=== PATIENT | male | born 1970 | race African-American/Black ===

== ENCOUNTER 2022-12-25 04:35 | Inpatient (IN) | payer OTHER ==
[2022-12-25] MEDS ORDERED: MAGNESIUM SULFATE-D5W PMX 1 GM in DEXTROSE/WATER 1 100ML.BAG IVPB STA (04:48)
[2022-12-25] MEDS ORDERED: SODIUM CHLORIDE 0.9% 1,000 ML IV STA ×3 (04:48→06:56)
[2022-12-25] MEDS ORDERED: methylPREDNISolone SOD SUCCI 125 MG/2 ML VIAL IV STA (04:48)
[2022-12-25] MEDS ORDERED: LORazepam 2 MG/ML INJ IV STA ×2 (04:48→05:28)
[2022-12-25 05:13] LABS: Basophils # (A) 0.1 k/uL (0-0.2); Basophils % (A) 0 %; Eosinophils # (A) 0.3 k/uL (0-0.7); Eosinophils % (A) 2 %; HCT 44.2 % (39.0-53.0); HGB 14.4 gm/dL (13.0-17.5); Lymphocytes # (A) 1.9 k/uL (1.0-4.8); Lymphocytes % (A) 12 %; MCH 33.7 pg (25.0-35.0); MCHC 32.4 g/dL (31.0-37.0); MCV 103.8 fL (80.0-100.0); Macrocytosis Slight; Mean Platelet Volume 7.7; Monocytes # (A) 0.7 k/uL (0-1.0); Monocytes % (A) 4 %; Neutrophils # (A) 12.9 k/uL (1.3-7.7); Neutrophils % (A) 80 %; Platelet Count 800 k/uL (150-450); RBC 4.26 m/uL (4.30-5.90); RDW 12.7 % (11.5-15.5); WBC 16.1 k/uL (3.8-10.6)
[2022-12-25 06:09] LABS: INR 0.9 (<1.2); Partial Thromboplastin Time 23.4 sec (22.0-30.0); Prothrombin Time 9.5 sec (9.0-12.0)
[2022-12-25 06:23] LABS: ALT 24 U/L (4-49); AST 24 U/L (17-59); African American GFR (CKD) >90 (>60 ml/min/1.73 sqM); Albumin 3.6 g/dL (3.5-5.0); Alkaline Phosphatase 75 U/L (38-126); Anion Gap 10 mmol/L; Blood Urea Nitrogen 7 mg/dL (9-20); Calcium 9.3 mg/dL (8.4-10.2); Carbon Dioxide 25 mmol/L (22-30); Chloride 101 mmol/L (98-107); Glucose 116 mg/dL (74-99); Magnesium 1.5 mg/dL (1.6-2.3); Non-African American GFR(CKD) >90 (>60 ml/min/1.73 sqM); Potassium 4.6 mmol/L (3.5-5.1); Sodium 136 mmol/L (137-145); Total Bilirubin 0.2 mg/dL (0.2-1.3); Total Protein 6.6 g/dL (6.3-8.2)
[2022-12-25 06:30] LABS: NT-Pro-B-Type Natriuretic Pept 327 pg/mL
[2022-12-25 07:10] LABS: VBG PH 7.45 (7.31-7.41)
--- NOTE | 2022-12-25 07:15 | XR ---
EXAMINATION TYPE: XR chest 1V portable DATE OF EXAM: 12/25/2022 Comparison: None Clinical History: 52-year-old male cough Findings: Heart normal size. Increased interstitial densities throughout the right lung. There is focal opacity along the right heart margin. No pleural effusion. Impression: Patchy opacity along the right middle lobe region. Correlate for pneumonia.
[2022-12-25] MEDS ORDERED: AZITHROMYCIN 500 MG in SODIUM CHLORIDE 0.9% 250 ML IVPB STA (07:35)
[2022-12-25] MEDS ORDERED: PIPERACILLIN-TAZOBACTAM 3.375 GM in SODIUM CHLORIDE 0.9% 100 ML IVPB STA (07:35)
[2022-12-25] MEDS ORDERED: PNEUMONIA PROTOCOL UTILIZED 1 EACH MISC PO PRN ×2 (07:35→08:57)
--- NOTE | 2022-12-25 07:46 | ED ---
General Adult HPI - General Source: patient Mode of arrival: EMS Limitations: no limitations <Moose Enrique - Last Filed: 12/25/22 07:36> <Wenceslao Viveros - Last Filed: 12/25/22 09:02> - General Chief complaint: Shortness of Breath Stated complaint: SOB Time Seen by Provider: 12/25/22 04:37 - History of Present Illness Initial comments: Patient is a 52-year-old male presents emergency Department complaining of dyspnea. He has a history of COPD. Recently was admitted for pneumonia per patient. Has a history of COPD and not usually nasal cannula. Has a history of alcohol abuse presenting from [place]. Last alcoholic beverage was 1 month ago. Presents for further evaluation at this time. He is anxious, dyspneic, with productive cough of yellow mucus. Denies any other symptoms. ( Moose Enrique) - Related Data Home Medications Medication Instructions Recorded Confirmed Acetaminophen Tab [Tylenol] 650 mg PO QID 12/25/22 12/25/22 Albuterol Nebulized [Ventolin 2.5 mg INHALATION RT-Q4H 12/25/22 12/25/22 Nebulized] Albuterol Sulfate [Ventolin HFA] 1 puff INHALATION RT-DAILY@0600 12/25/22 12/25/22 Azithromycin [Zithromax Z Pack] 1 tab PO DIRECTED 12/25/22 12/25/22 Chlorpheniramine Maleate 4 mg PO Q4H PRN 12/25/22 12/25/22 [Chlor-Trimeton] Escitalopram [Lexapro] 10 mg PO DAILY@0600 12/25/22 12/25/22 Fluticasone/Umeclidin/Vilanter 1 puff INHALATION RT-DAILY@0600 12/25/22 12/25/22 [Trelegy Ellipta 100-62.5-25] Ibuprofen [Motrin] 600 mg PO TID@0600,1130,2100 12/25/22 12/25/22 Multivitamins, Thera [Multivitamin 1 tab PO DAILY@0600 12/25/22 12/25/22 (formulary)] Nicotine 21Mg/24Hr Patch [Habitrol] 1 patch TRANSDERM DAILY@0600 12/25/22 12/25/22 Thera M Iron 9 mg PO DAILY@0600 12/25/22 12/25/22 busPIRone HCl [Buspar] 10 mg PO TID 12/25/22 12/25/22 guaiFENesin [guaiFENesin Oral 200 mg PO Q4H PRN 12/25/22 12/25/22 Solution] levETIRAcetam [Keppra] 1,000 mg PO BID@0600,1600 12/25/22 12/25/22 traZODone HCL [Desyrel] 100 mg PO HS@2000 12/25/22 12/25/22 Allergies Allergy/AdvReac Type Severity Reaction Status Date / Time No Known Allergies Allergy Verified 12/25/22 08:48 Review of Systems ROS Other: All systems not noted in ROS Statement are negative. <Moose Enrique - Last Filed: 12/25/22 07:36> ROS Other: All systems not noted in ROS Statement are negative. <Wenceslao Viveros - Last Filed: 12/25/22 09:02> ROS Statement: Those systems with pertinent positive or pertinent negative responses have been documented in the HPI. Review of Systems: CONST: Denies fever EYES: Denies blurry vision ENT: Denies nasal congestion C/V: Denies Chest pain RESP: Endorses dyspnea GI: Denies abdominal pain : Denies dysuria SKIN: Denies rash. MSK: Denies joint pain. NEURO: Denies headache (Moose Enrique) Past Medical History Past Medical History: COPD Past Surgical History: Unable to Obtain Smoking Status: Current every day smoker Past Alcohol Use History: Occasional Past Drug Use History: None Reported <Moose Enrique - Last Filed: 12/25/22 07:36> General Exam Limitations: no limitations <Moose Enrique - Last Filed: 12/25/22 07:36> - General Exam Comments Initial Comments: General: Patient in apparent respiratory distress. Appears anxious. HEAD: Normal with no signs of head trauma. EYES: PERRLA, EOMI, conjunctiva normal, no discharge. ENT: Hearing grossly intact, normal oropharynx. RESPIRATORY: Bilateral end expiratory wheezing. Hypoxia on room air in the 80%'s. Significant increased work of breathing. C/V: Sinus tachycardia. S1 and S2 auscultated, no edema, peripheral pulses 2+ and intact throughout ABD: Abd is soft, nontender, nondistended EXT: Normal range of motion, no obvious deformity SKIN: No rashes or lesions observed on exposed skin. NEURO: Alert and oriented x 4. (Moose Enrique) Course Vital Signs 12/25/22 12/25/22 12/25/22 04:39 05:29 05:30 Temperature 98 F Pulse Rate 130 H 123 H Respiratory 26 H 25 H Rate Blood Pressure 137/117 156/120 O2 Sat by Pulse 97 99 Oximetry Fraction of 50 Inspired Oxygen (FIO2) 12/25/22 12/25/22 12/25/22 05:47 06:00 06:40 Temperature Pulse Rate 132 H 137 H 124 H Respiratory 24 24 26 H Rate Blood Pressure 158/107 142/88 O2 Sat by Pulse 99 99 97 Oximetry Fraction of Inspired Oxygen (FIO2) 12/25/22 12/25/22 06:54 07:46 Temperature Pulse Rate 115 H 87 Respiratory 22 18 Rate Blood Pressure O2 Sat by Pulse 99 95 Oximetry Fraction of Inspired Oxygen (FIO2) Medical Decision Making - Lab Data Result diagrams: 12/25/22 04:59 12/25/22 05:40 - EKG Data -: EKG Interpreted by Me <Moose Enrique - Last Filed: 12/25/22 07:36> - Lab Data Result diagrams: 12/25/22 04:59 12/25/22 05:40 <Wenceslao Viveros - Last Filed: 12/25/22 09:02> - Medical Decision Making Was pt. sent in by a medical professional or institution (, [facility], [facility], urgent care, hospital, or shelter...) When possible be specific @ -No Did you speak to anyone other than the patient for history (EMS, parent, family, police, friend...)? What history was obtained from this source @ -No Did you review nursing and triage notes (agree or disagree)? Why? @ -I reviewed and agree with nursing and triage notes Were old charts reviewed (outside hosp., previous admission, EMS record, old EKG , old radiological studies, urgent care reports/EKG's, shelter records)? Report findings @ -Old charts reviewed. Differential Diagnosis (chest pain, altered mental status, abdominal pain women, abdominal pain men, vaginal bleeding, weakness, fever, dyspnea, syncope, headache, dizziness, GI bleed, back pain, seizure, CVA, palpatations, mental health, musculoskeletal)? @ -Differential Dyspnea: Coronary syndrome, arrhythmia, tamponade, asthma, COPD, pulmonary embolism, pneumonia, pneumothorax, pulmonary effusion, anaphylaxis, diabetic ketoacidosis, flailed chest, pulmonary contusion, diaphragmatic rupture, anemia, neuromuscular, this is not meant to be an all-inclusive list. EKG interpreted by me (3pts min.). @ -As above X-rays interpreted by me (1pt min.). @ -Checks x-ray does show a right middle lobe pneumonia. CT interpreted by me (1pt min.). @ -CT pending U/S interpreted by me (1pt. min.). @ -None done What testing was considered but not performed or refused? (CT, X-rays, U/S, labs)? Why? @ -None What meds were considered but not given or refused? Why? @ -None Did you discuss the management of the patient with other professionals (professionals i.e. , PA, [employer], lab, RT, psych nurse, licensed clinical social worker, plastic tubing insulation supervisor, teacher, hazard mitigation officer, case assembler)? Give summary @ -No Was smoking cessation discussed for >3mins.? @ -No Was critical care preformed (if so, how long)? @ -Yes, 37 minutes Were there social determinants of health that impacted care today? How? (Homelessness, low income, unemployed, alcoholism, drug addiction, transportation, low edu. Level, literacy, decrease access to med. care, [facility], rehab)? @ -No Was there de-escalation of care discussed even if they declined (Discuss DNR or withdrawal of care, Hospice)? DNR status @ -No What co-morbidities impacted this encounter? (DM, HTN, Smoking, COPD, CAD, Cancer, CVA, ARF, Chemo, Hep., AIDS, mental health diagnosis, sleep apnea, morbid obesity)? @ -None Was patient admitted / discharged? Hospital course, mention meds given and route, prescriptions, significant lab abnormalities, going to OR and other pertinent info. @ -Based on the patient's presentation and physical exam, presents complaining of dyspnea. Concern for COPD possible pneumonia. Patient is very tachycardic and agitated as well. We'll obtain cardio pulmonary last chest x-ray and EKG. Patient was hypoxic on presentation. However received a breathing treatment just prior to arrival and wheezing was minimal bilaterally. Still somewhat hypoxic. Patient started on BiPAP. Patient tolerating BiPAP well. Remains tachycardic. Patient has a leukocytosis of 16. Blood patient's labs remarkable for mild hypomagnesemia of the patient was given magnesium as well as IV fluids. Tropon in undetectable. Remainder of labs with an except for limits. We will obtain a d-dimer at this time as his increased work of breathing seems out of proportion to his current exam. Chest x-ray does show a right-sided pneumonia. D-dimer is elevated and we will obtain a CT PE. At this time we were able to wean the patient off BiPAP. Tolerating 4 L nasal cannula. Blood cultures were obtained. Patient started on IV antibiotics Zosyn and azithromycin. Pulmonology consulted. CTP is still pending at this time. Patient signed out to Dr. Viveros pending results of CT.he received 2 L IV fluids was placed on maintenance fluids. Undiagnosed new problem with uncertain prognosis? @ -No Drug Therapy requiring intensive monitoring for toxicity (Heparin, Nitro, Insulin, Cardizem)? @ -No Were any procedures done? @ -No Diagnosis/symptom? @ -Hypoxic respiratory failure likely secondary to COPD as well as pneumonia Acute, or Chronic, or Acute on Chronic? @ -Acute Uncomplicated (without systemic symptoms) or Complicated (systemic symptoms)? @ -Complicated Side effects of treatment? @ -No Exacerbation, Progression, or Severe Exacerbation? @ -No Poses a threat to life or bodily function? How? (Chest pain, [place], [place], pneumonia, PE, COPD, DKA, ARF, appy, cholecystitis, CVA, Diverticulitis, Homicidal, Suicidal, threat to staff... and all critical care pts) @ -Yes (Moose Enrique) CT interpreted by me (1pt min.). @ -CT scan shows multilobar pneumonia most likely and no obvious PE Was patient admitted / discharged? Hospital course, mention meds given and route, prescriptions, significant lab abnormalities, going to OR and other pertinent info. @ -This patient had a CAT scan that showed no obvious pulmonary embolism and did show multifocal pneumonia. I spoke with the suspicion hospitalist agreed to admit the patient admitted the patient I wrote admitting orders. Undiagnosed new problem with uncertain prognosis? @ -No Drug Therapy requiring intensive monitoring for toxicity (Heparin, Nitro, Insulin, Cardizem)? @ -No Were any procedures done? @ -No Diagnosis/symptom? @ -Multifocal pneumonia Acute, or Chronic, or Acute on Chronic? @ -Acute Uncomplicated (without systemic symptoms) or Complicated (systemic symptoms)? @ -Complicated Side effects of treatment? @ -No Exacerbation, Progression, or Severe Exacerbation? @ -No Poses a threat to life or bodily function? How? (Chest pain, [place], [place], pneumonia, PE, COPD, DKA, ARF, appy, cholecystitis, CVA, Diverticulitis, Homicidal, Suicidal, threat to staff... and all critical care pts) @ -Yes this could lead to sepsis and end organ dysfunction Diagnosis/symptom? @ -COPD exacerbation Acute, or Chronic, or Acute on Chronic? @ -Acute on chronic Uncomplicated (without systemic symptoms) or Complicated (systemic symptoms)? @ -Complicated Side effects of treatment? @ -none Exacerbation, Progression, or Severe Exacerbation] @ -no Poses a threat to life or bodily function? @ -no (Wenceslao Viveros) - Lab Data Lab Results 12/25/22 12/25/22 12/25/22 Range/Units 04:59 04:59 05:40 WBC 16.1 H (3.8-10.6) k/uL RBC 4.26 L (4.30-5.90) m/uL Hgb 14.4 (13.0-17.5) gm/dL Hct 44.2 (39.0-53.0) % MCV 103.8 H (80.0-100.0) fL MCH 33.7 (25.0-35.0) pg MCHC 32.4 (31.0-37.0) g/dL RDW 12.7 (11.5-15.5) % Plt Count 800 H (150-450) k/uL MPV 7.7 Neutrophils % 80 % Lymphocytes % 12 % Monocytes % 4 % Eosinophils % 2 % Basophils % 0 % Neutrophils # 12.9 H (1.3-7.7) k/uL Lymphocytes # 1.9 (1.0-4.8) k/uL Monocytes # 0.7 (0-1.0) k/uL Eosinophils # 0.3 (0-0.7) k/uL Basophils # 0.1 (0-0.2) k/uL Macrocytosis Slight PT (9.0-12.0) sec INR (<1.2) APTT (22.0-30.0) sec D-Dimer (<0.60) mg/L FEU VBG pH (7.31-7.41) VBG pCO2 (37-51) mmHg VBG HCO3 (24-28) mmol/L Sodium 136 L (137-145) mmol/L Potassium 4.6 (3.5-5.1) mmol/L Chloride 101 (98-107) mmol/L Carbon Dioxide 25 (22-30) mmol/L Anion Gap 10 mmol/L BUN 7 L (9-20) mg/dL Creatinine 0.42 L (0.66-1.25) mg/dL Est GFR (CKD-EPI)AfAm >90 (>60 ml/min/1.73 sqM) Est GFR (CKD-EPI)NonAf >90 (>60 ml/min/1.73 sqM) Glucose 116 H (74-99) mg/dL Plasma Lactic Acid Jabari (0.7-2.0) mmol/L Calcium 9.3 (8.4-10.2) mg/dL Magnesium 1.5 L (1.6-2.3) mg/dL Total Bilirubin 0.2 (0.2-1.3) mg/dL AST 24 (17-59) U/L ALT 24 (4-49) U/L Alkaline Phosphatase 75 (38-126) U/L Troponin I (0.000-0.034) ng/mL NT-Pro-B Natriuret Pep 327 pg/mL Total Protein 6.6 (6.3-8.2) g/dL Albumin 3.6 (3.5-5.0) g/dL Influenza Type A (PCR) Not Detected (Not Detectd) Influenza Type B (PCR) Not Detected (Not Detectd) RSV (PCR) Not Detected (Not Detectd) SARS-CoV-2 (PCR) Not Detected (Not Detectd) 12/25/22 12/25/22 12/25/22 Range/Units 05:40 05:40 05:40 WBC (3.8-10.6) k/uL RBC (4.30-5.90) m/uL Hgb (13.0-17.5) gm/dL Hct (39.0-53.0) % MCV (80.0-100.0) fL MCH (25.0-35.0) pg MCHC (31.0-37.0) g/dL RDW (11.5-15.5) % Plt Count (150-450) k/uL MPV Neutrophils % % Lymphocytes % % Monocytes % % Eosinophils % % Basophils % % Neutrophils # (1.3-7.7) k/uL Lymphocytes # (1.0-4.8) k/uL Monocytes # (0-1.0) k/uL Eosinophils # (0-0.7) k/uL Basophils # (0-0.2) k/uL Macrocytosis PT 9.5 (9.0-12.0) sec INR 0.9 (<1.2) APTT 23.4 (22.0-30.0) sec D-Dimer (<0.60) mg/L FEU VBG pH (7.31-7.41) VBG pCO2 (37-51) mmHg VBG HCO3 (24-28) mmol/L Sodium (137-145) mmol/L Potassium (3.5-5.1) mmol/L Chloride (98-107) mmol/L Carbon Dioxide (22-30) mmol/L Anion Gap mmol/L BUN (9-20) mg/dL Creatinine (0.66-1.25) mg/dL Est GFR (CKD-EPI)AfAm (>60 ml/min/1.73 sqM) Est GFR (CKD-EPI)NonAf (>60 ml/min/1.73 sqM) Glucose (74-99) mg/dL Plasma Lactic Acid Jabari 1.1 (0.7-2.0) mmol/L Calcium (8.4-10.2) mg/dL Magnesium (1.6-2.3) mg/dL Total Bilirubin (0.2-1.3) mg/dL AST (17-59) U/L ALT (4-49) U/L Alkaline Phosphatase (38-126) U/L Troponin I <0.012 (0.000-0.034) ng/mL NT-Pro-B Natriuret Pep pg/mL Total Protein (6.3-8.2) g/dL Albumin (3.5-5.0) g/dL Influenza Type A (PCR) (Not Detectd) Influenza Type B (PCR) (Not Detectd) RSV (PCR) (Not Detectd) SARS-CoV-2 (PCR) (Not Detectd) 12/25/22 12/25/22 Range/Units 05:40 06:39 WBC (3.8-10.6) k/uL RBC (4.30-5.90) m/uL Hgb (13.0-17.5) gm/dL Hct (39.0-53.0) % MCV (80.0-100.0) fL MCH (25.0-35.0) pg MCHC (31.0-37.0) g/dL RDW (11.5-15.5) % Plt Count (150-450) k/uL MPV Neutrophils % % Lymphocytes % % Monocytes % % Eosinophils % % Basophils % % Neutrophils # (1.3-7.7) k/uL Lymphocytes # (1.0-4.8) k/uL Monocytes # (0-1.0) k/uL Eosinophils # (0-0.7) k/uL Basophils # (0-0.2) k/uL Macrocytosis PT (9.0-12.0) sec INR (<1.2) APTT (22.0-30.0) sec D-Dimer 3.28 H (<0.60) mg/L FEU VBG pH 7.45 H (7.31-7.41) VBG pCO2 33 L (37-51) mmHg VBG HCO3 23 L (24-28) mmol/L Sodium (137-145) mmol/L Potassium (3.5-5.1) mmol/L Chloride (98-107) mmol/L Carbon Dioxide (22-30) mmol/L Anion Gap mmol/L BUN (9-20) mg/dL Creatinine (0.66-1.25) mg/dL Est GFR (CKD-EPI)AfAm (>60 ml/min/1.73 sqM) Est GFR (CKD-EPI)NonAf (>60 ml/min/1.73 sqM) Glucose (74-99) mg/dL Plasma Lactic Acid Jabari (0.7-2.0) mmol/L Calcium (8.4-10.2) mg/dL Magnesium (1.6-2.3) mg/dL Total Bilirubin (0.2-1.3) mg/dL AST (17-59) U/L ALT (4-49) U/L Alkaline Phosphatase (38-126) U/L Troponin I (0.000-0.034) ng/mL NT-Pro-B Natriuret Pep pg/mL Total Protein (6.3-8.2) g/dL Albumin (3.5-5.0) g/dL Influenza Type A (PCR) (Not Detectd) Influenza Type B (PCR) (Not Detectd) RSV (PCR) (Not Detectd) SARS-CoV-2 (PCR) (Not Detectd) - EKG Data EKG Comments: 12-lead Electrocardiogram Interpretation Note EKG was reviewed and interpreted by myself. 12-lead ECG performed at 0446 is interpreted by me as revealing sinus tachycardia at a rate of 131 beats per minute. Rinard is normal. VT interval is 133 ms, QRS duration is 93 ms, QTc is 356 ms.. There were no ST or T wave abnormalities to suggest myocardial ischemia or injury. R wave progression across the precordium was satisfactory. By my interpretation this EKG is non-diagnostic for acute ischemia. (Moose Enrique) Critical Care Time Critical Care Time: Yes Total Critical Care Time: 37 <Moose Enrique - Last Filed: 12/25/22 07:36> Disposition <Moose Enrique - Last Filed: 12/25/22 07:36> Time of Disposition: 08:57 <Wenceslao Viveros - Last Filed: 12/25/22 09:02> Clinical Impression: Hypoxic respiratory failure, Pneumonia, COPD (chronic obstructive pulmonary disease) Disposition: ADMITTED IP TO THIS HOSP Referrals: Nonstaff,Physician [Primary Care Provider] - 1-2 days
--- NOTE | 2022-12-25 08:26 | CT ---
EXAMINATION TYPE: CT chest angio for PE DATE OF EXAM: 12/25/2022 COMPARISON: Radiograph same day HISTORY: 52-year-old male SOB, elevated d dimer TECHNIQUE: Contiguous axial scanning of the chest performed with IV Contrast, patient injected with 1 00 mL of Isovue 370. Coronal/sagittal MIP reconstructions performed. CT DLP: 264.2 mGycm Automated exposure control for dose reduction was used. FINDINGS: The heart is normal size without pericardial effusion. No flattening of the interventricular septum o r reflux of contrast veins. Aorta normal caliber with conventional arch vessel branching anatomy. Right hilar lymph node enlarged at 2.9 x 1.4 cm. There is suboptimal contrast bolus for assessment of pulmonary embolus. Allowing for this limitation, no large central or lobar branch pulmonary embolus is seen. Segmental and more distal arterial branc hes are limited nondiagnostic dislocations cannot be adequately excluded on the basis of this exam. There is a small right pleural effusion with adjacent atelectasis. * Focal subpleural masslike opacity anteromedial right mid lung measuring 4.7 cm. Suggestion of some associated cavitary change. * Additional right middle lobe consolidation and partial collapse. * Focal subpleural opacity posterolateral right upper lobe measuring 2.3 cm. * Right infrahilar masslike opacity measuring 3.1 cm. Mild to moderate bronchial wall thickening. Breathing motion artifact in lower lungs. Visualized upper abdomen shows no gross abnormality. Bones: No osseous destructive process. IMPRESSION: 1. SUBOPTIMAL CONTRAST BOLUS. ADDITIONAL BREATHING MOTION ARTIFACT. Allowing for this limitation, no obvious large central or definite lobar branch pulmonary embolus is seen. However, segmental and more distal arterial branches are very limited to nondiagnostic and emboli in these locations cannot be e xcluded on the basis of this exam. 2. Multifocal masslike areas of opacity on the right including the posterolateral right upper lobe, r ight infrahilar region, and right midlung. Opacities measure up to 4.7 cm and the largest may contain some associated inflammatory change. Correlate for multifocal pneumonia or atypical fungal/mycobacte rial infections. 3. Right hilar lymphadenopathy measuring up to 2.9 cm AP reactive. Recommend 2-3 month follow-up afte r treatment to ensure clearance and exclude neoplastic etiology for these opacities and right hilar l ymph node. 4. Additional consolidation and partial collapse right middle lobe. 5. Small right pleural effusion with adjacent atelectasis and/or consolidation.
[2022-12-25] MEDS ORDERED: IPRATROPIUM-ALBUTEROL 3 ML NEB INHALATION PRN (09:03)
[2022-12-25] MEDS ORDERED: LORazepam 2 MG/ML INJ IV PRN ×3 (09:49)
[2022-12-25] MEDS ORDERED: THIAMINE 100 MG/ML 2 ML VIAL IM STA (09:49)
[2022-12-25] MEDS: IPRATROPIUM-ALBUTEROL 3 ML NEB INHALATION SCH ×3 (11:34→20:55)
[2022-12-25] MEDS ORDERED: guaiFENesin SYRUP 100MG/5ML 200 MG/10 ML CUP PO PRN (12:37)
--- NOTE | 2022-12-25 12:43 | P.HPIM ---
History of Present Illness This is a pleasant 52 years old male with past medical history of COPD, nicotine dependence, seizure, anxiety and depression Patient was recently discharged from [facility] for right pneumonia and he supposed to follow-up [place] for alcohol withdrawal. Patient admits to drink 1 pint of liquor at 6-12 tall beers a day. Also he smokes about 6 cigarettes per day and was consulted liquids and he agrees any was nicotine patch Pt. comes from [place]- sober x30 days. Hx of COPD. Pt. c/o increased SOB x1 day. Pt. AOx4. Presenting with increased work of breathing. [ End ] Patient is afebrile. He is saturating 95% on 4 L oxygen via nasal cannula..earlier he was on bipap machine. He was tachycardic 123 and tachycardia 25 short of breath on admission. Labs showed leukocytosis of 16.1. Rest of the CBC is unremarkable. INR 1.9. D-dimer is elevated at 3.2. Venous blood gas showing pH is 745 which is mildly elevated, pCO2 low at 33 and venous HCO3 is low at 23. BMP and liver enzymes are unremarkable. Troponin is negative. BNP 327. Pharmacist not detected. including influenza, khan and RSV viruses EKG showing sinus tachycardia at [address]-T changes CT of the chest focal subpleural masslike opacity in the right mid lung measuring 4.7 cm with possible cavitary lesion. Right middle lobe consolidation and pressure collapse. Focal subpleural opacity 2.3 cm and right infrahilar ma sslike opacity measuring 3.1 cm: and emergency room patient was started on Solu-Medrol and Zithromax. Respiratory dose of Zosyn Review of Systems Review of systems CONSTITUTIONAL: No fever, no malaise, no fatigue. HEENT: No recent visual problems or hearing problems. Denied any sore throat. CARDIOVASCULAR: No orthopnea, PND, no palpitations, no syncope. PULMONARY: No chest wall tenderness, no hemoptysis. GASTROINTESTINAL: No diarrhea, no nausea, no vomiting, no abdominal pain. Normoactive bowel sounds. NEUROLOGICAL: No headaches, no weakness, no numbness. HEMATOLOGICAL: Denies any bleeding or petechiae. GENITOURINARY: Denies any burning micturition, frequency, or urgency. MUSCULOSKELETAL/RHEUMATOLOGICAL: Denies any joint pain, swelling, or any muscle pain. ENDOCRINE: Denies any polyuria or polydipsia. Past Medical History Past Medical History: COPD Past Surgical History: Unable to Obtain Smoking Status: Current every day smoker Past Alcohol Use History: Occasional Past Drug Use History: None Reported Medications and Allergies Home Medications Medication Instructions Recorded Confirmed Type Acetaminophen Tab [Tylenol] 650 mg PO QID 12/25/22 12/25/22 History Albuterol Nebulized [Ventolin 2.5 mg INHALATION RT-Q4H 12/25/22 12/25/22 History Nebulized] Albuterol Sulfate [Ventolin HFA] 1 puff INHALATION RT-DAILY@0600 12/25/22 12/25/22 History Azithromycin [Zithromax Z Pack] 1 tab PO DIRECTED 12/25/22 12/25/22 History Chlorpheniramine Maleate 4 mg PO Q4H PRN 12/25/22 12/25/22 History [Chlor-Trimeton] Escitalopram [Lexapro] 10 mg PO DAILY@0600 12/25/22 12/25/22 History Fluticasone/Umeclidin/Vilanter 1 puff INHALATION RT-DAILY@0600 12/25/22 12/25/22 History [Trelegy Ellipta 100-62.5-25] Ibuprofen [Motrin] 600 mg PO TID@0600,1130,2100 12/25/22 12/25/22 History Multivitamins, Thera [Multivitamin 1 tab PO DAILY@0600 12/25/22 12/25/22 History (formulary)] Nicotine 21Mg/24Hr Patch [Habitrol] 1 patch TRANSDERM DAILY@0600 12/25/22 12/25/22 History Thera M Iron 9 mg PO DAILY@0600 12/25/22 12/25/22 History busPIRone HCl [Buspar] 10 mg PO TID 12/25/22 12/25/22 History guaiFENesin [guaiFENesin Oral 200 mg PO Q4H PRN 12/25/22 12/25/22 History Solution] levETIRAcetam [Keppra] 1,000 mg PO BID@0600,1600 12/25/22 12/25/22 History traZODone HCL [Desyrel] 100 mg PO HS@199912/25/22 12/25/22 History Allergies Allergy/AdvReac Type Severity Reaction Status Date / Time No Known Allergies Allergy Verified 12/25/22 08:48 Physical Exam Vitals: Vital Signs Temp Pulse Resp BP Pulse Ox FiO2 12/25/22 07:46 87 18 95 12/25/22 06:54 115 H 22 99 12/25/22 06:40 124 H 26 H 97 12/25/22 06:00 137 H 24 142/88 99 12/25/22 05:47 132 H 24 158/107 99 12/25/22 05:30 123 H 25 H 156/120 99 12/25/22 05:29 50 12/25/22 04:39 98 F 130 H 26 H 137/117 97 Intake and Output 12/24/22 12/25/22 12/25/22 22:59 06:59 14:59 Other: Weight 77.111 kg GENERAL: The patient is alert and oriented x3, not in any acute distress. Well developed, well nourished. HEENT: Pupils are round and equally reacting to light. EOMI. No scleral icterus. No conjunctival pallor. Normocephalic, atraumatic. No pharyngeal erythema. No thyromegaly. CARDIOVASCULAR: S1 and S2 present. No murmurs, rubs, or gallops. -PULMONARY: Chest is clear to auscultation , no crackles. Decreased ventricular size, expiratory wheezing ABDOMEN: Soft, nontender, nondistended, normoactive bowel sounds. No palpable organomegaly. MUSCULOSKELETAL: No joint swelling or deformity. EXTREMITIES: No cyanosis, clubbing, or pedal edema. NEUROLOGICAL: Gross neurological examination did not reveal any focal deficits. SKIN: No rashes. no petechiae. Results CBC & Chem 7: 12/25/22 04:59 12/25/22 05:40 Labs: Abnormal Lab Results - Last 24 Hours (Table) 12/25/22 12/25/22 12/25/22 Range/Units 04:59 05:40 05:40 WBC 16.1 H (3.8-10.6) k/uL RBC 4.26 L (4.30-5.90) m/uL MCV 103.8 H (80.0-100.0) fL Plt Count 800 H (150-450) k/uL Neutrophils # 12.9 H (1.3-7.7) k/uL D-Dimer 3.28 H (<0.60) mg/L FEU VBG pH (7.31-7.41) VBG pCO2 (37-51) mmHg VBG HCO3 (24-28) mmol/L Sodium 136 L (137-145) mmol/L BUN 7 L (9-20) mg/dL Creatinine 0.42 L (0.66-1.25) mg/dL Glucose 116 H (74-99) mg/dL Magnesium 1.5 L (1.6-2.3) mg/dL 12/25/22 Range/Units 06:39 WBC (3.8-10.6) k/uL RBC (4.30-5.90) m/uL MCV (80.0-100.0) fL Plt Count (150-450) k/uL Neutrophils # (1.3-7.7) k/uL D-Dimer (<0.60) mg/L FEU VBG pH 7.45 H (7.31-7.41) VBG pCO2 33 L (37-51) mmHg VBG HCO3 23 L (24-28) mmol/L Sodium (137-145) mmol/L BUN (9-20) mg/dL Creatinine (0.66-1.25) mg/dL Glucose (74-99) mg/dL Magnesium (1.6-2.3) mg/dL Assessment and Plan Assessment: COPD with acute exacerbation Possible right middle lobe pneumonia and masslike opacity in the right midlung 4.7 cm with possible cavitary lesion + on right upper lobe opacity 2.3 cm + right infrahilar masslike opacity 3.1 cm mild acute hypoxic respiratory failure nicotine dependence history of seizure anxiety and depression Plan: Continue with CIWA protocol thiamine, currently on Zosyn and Zithromax. Follow-up culture results pulmonary team consult Labs and medication were reviewed.. Continue same treatment. Continue with symptomatic treatment. Resume home medication. Monitor labs and vitals. DVT and GI prophylaxis. Further recommendations as per clinical course of the patient DVT prophylaxis: Subcutaneous heparin GI Prophylaxis: Pepcid PT/OT: Pending Prognosis is guarded
[2022-12-25] MEDS: PIPERACILLIN-TAZOBACTAM 3.375 GM in SODIUM CHLORIDE 0.9% 100 ML IVPB SCH ×2 (12:45→20:00)
[2022-12-25] MEDS: methylPREDNISolone SOD SUCCI 125 MG/2 ML VIAL IV SCH ×2 (12:45→18:29)
[2022-12-25] MEDS: NICOTINE 21MG/24HR PATCH TRANSDERM SCH (12:45)
[2022-12-25] MEDS: ACETAMINOPHEN TAB 325 MG TAB PO SCH ×3 (13:01→21:26)
--- NOTE | 2022-12-25 14:28 | P.CNPUL ---
History of Present Illness Consult date: 12/25/22 Requesting physician: Bud E Sheet Reason for consult: dyspnea, COPD, abnormal CXR/CT Chief complaint: Shortness of breath History of present illness: This is a 52-year-old male patient with a known history of depression, chronic obstructive pulmonary disease, chronic and ongoing tobacco dependence, daily alcohol abuse who was currently in rehabilitation at [place] for the past 8 days. He states his last drink was 11/24/2022. He was brought in early this morning for significant shortness of breath, cough and congestion. He was recently at a [facility] 2 weeks ago for pneumonia. He was recently started on Trelegy and albuterol by a automatic beam warper tender in [place]. He resides in [place]. He is seen today in consultation in the emergency department. He was initially requiring BiPAP support 02/17 on 40% FiO2. He is currently on 4 L nasal cannula. He is quite dyspneic with minimal exertion. Dyspneic with conversation. He has had some pink tinged sputum. He has significant right sided chest wall pain. Chest x-ray revealed patchy opacity around the right middle lobe region. CT angiogram ruled out large central or lobar branch pulmonary embolus. Portable is some motion artifact excluded further evaluation of pulmonary embolism. There is a multifocal masslike areas of opacity on the right including a posterior lateral right upper lobe, right infrahilar region, and right midlung. Opacities measuring 4.7 cm in largest may contain some associated inflammatory change. Correlate for multifocal pneumonia or atypical fungal/mycobacterial infections. There is right hilar lymphadenopathy measuring up to 2.9 cm. Cannot exclude neoplastic etiology. Additional consolidation and partial collapse of the right middle lobe. Small right pleural effusion with adjacent atelectasis and/or consolidation. White count 16.1. Hemoglobin 14.4. Platelets 800. MCV 103.8. D-dimer 3.28. Sodium 136. Potassium 4.6. Bicarb 25. BUN 7. Creatinine 0.42. Glucose 116. AST 24. ALT 24. Troponin negative 1. ProBNP 327. Influenza screen negative. RSV screen negative. COVID-19 screen negative. Review of Systems REVIEW OF SYSTEMS: CONSTITUTIONAL: Denies any recent significant weight loss or weight gain. EYES: Denies change in vision. EARS, NOSE, MOUTH, THROAT: Denies headaches, denies sore throat. CARDIOVASCULAR: Denies chest pain, palpitations or syncopal episodes. RESPIRATORY: Positive for shortness of breath, cough, congestion, hemoptysis. GASTROINTESTINAL: Denies change in appetite, denies abdominal pain GENITOURINARY: Denies hematuria, denies infections. MUSKULOSKELETAL: Denies pain, denies swelling. INTEGUMENTARY: Denies rash, denies eczema. NEUROLOGICAL: Denies recent memory loss, no recent seizure activity. PSYCHIATRIC: Denies anxiety, denies depression. HEMATOLOGIC/LYMPHATIC: Denies anemia, denies enlarged lymph nodes. Past Medical History Past Medical History: COPD Past Surgical History: Unable to Obtain Smoking Status: Current every day smoker Past Alcohol Use History: Occasional Past Drug Use History: None Reported Medications and Allergies Home Medications Medication Instructions Recorded Confirmed Type Acetaminophen Tab [Tylenol] 650 mg PO QID 12/25/22 12/25/22 History Albuterol Nebulized [Ventolin 2.5 mg INHALATION RT-Q4H 12/25/22 12/25/22 History Nebulized] Albuterol Sulfate [Ventolin HFA] 1 puff INHALATION RT-DAILY@0600 12/25/22 12/25/22 History Azithromycin [Zithromax Z Pack] 1 tab PO DIRECTED 12/25/22 12/25/22 History Chlorpheniramine Maleate 4 mg PO Q4H PRN 12/25/22 12/25/22 History [Chlor-Trimeton] Escitalopram [Lexapro] 10 mg PO DAILY@0600 12/25/22 12/25/22 History Fluticasone/Umeclidin/Vilanter 1 puff INHALATION RT-DAILY@0600 12/25/22 12/25/22 History [Trelegy Ellipta 100-62.5-25] Ibuprofen [Motrin] 600 mg PO TID@0600,1130,2100 12/25/22 12/25/22 History Multivitamins, Thera [Multivitamin 1 tab PO DAILY@0600 12/25/22 12/25/22 History (formulary)] Nicotine 21Mg/24Hr Patch [Habitrol] 1 patch TRANSDERM DAILY@0600 12/25/22 12/25/22 History Thera M Iron 9 mg PO DAILY@0600 12/25/22 12/25/22 History busPIRone HCl [Buspar] 10 mg PO TID 12/25/22 12/25/22 History guaiFENesin [guaiFENesin Oral 200 mg PO Q4H PRN 12/25/22 12/25/22 History Solution] levETIRAcetam [Keppra] 1,000 mg PO BID@0600,1600 12/25/22 12/25/22 History traZODone HCL [Desyrel] 100 mg PO HS@2000 12/25/22 12/25/22 History Allergies Allergy/AdvReac Type Severity Reaction Status Date / Time No Known Allergies Allergy Verified 12/25/22 08:48 Physical Exam Vitals: Vital Signs Temp Pulse Resp BP Pulse Ox FiO2 12/25/22 13:00 117 H 19 148/89 93 L 12/25/22 11:46 94 12/25/22 11:34 94 12/25/22 07:46 87 18 95 12/25/22 06:54 115 H 22 99 12/25/22 06:40 124 H 26 H 97 12/25/22 06:00 137 H 24 142/88 99 12/25/22 05:47 132 H 24 158/107 99 12/25/22 05:30 123 H 25 H 156/120 99 12/25/22 05:29 50 12/25/22 04:39 98 F 130 H 26 H 137/117 97 Intake and Output 12/24/22 12/25/22 12/25/22 22:59 06:59 14:59 Other: Weight 77.111 kg GENERAL EXAM: Alert, 52-year-old male, in mild respiratory distress, on 4 L nasal cannula. HEAD: Normocephalic. EYES: Normal reaction of pupils, equal size. NOSE: Clear with pink turbinates. THROAT: No erythema or exudates. NECK: No masses, no JVD. CHEST: No chest wall deformity. LUNGS: Equal air entry with bilateral wheezing, diminished, crackles and rhonchi throughout the right lung. CVS: S1 and S2 normal with no audible murmur, regular rhythm. ABDOMEN: No hepatosplenomegaly, normal bowel sounds, no guarding or rigidity. SPINE: No scoliosis or deformity SKIN: No rashes CENTRAL NERVOUS SYSTEM: No focal deficits, tone is normal in all 4 extremities. EXTREMITIES: There is no peripheral edema. No clubbing, no cyanosis. Peripheral pulses are intact. Results - Laboratory Findings CBC and BMP: 12/25/22 04:59 12/25/22 05:40 PT/INR, D-dimer PT 9.5 sec (9.0-12.0) 12/25/22 05:40 INR 0.9 (<1.2) 12/25/22 05:40 D-Dimer 3.28 mg/L FEU (<0.60) H 12/25/22 05:40 Abnormal lab findings: Abnormal Labs 12/25/22 12/25/22 12/25/22 04:59 05:40 05:40 WBC 16.1 H RBC 4.26 L MCV 103.8 H Plt Count 800 H Neutrophils # 12.9 H D-Dimer 3.28 H VBG pH VBG pCO2 VBG HCO3 Sodium 136 L BUN 7 L Creatinine 0.42 L Glucose 116 H Magnesium 1.5 L 12/25/22 06:39 WBC RBC MCV Plt Count Neutrophils # D-Dimer VBG pH 7.45 H VBG pCO2 33 L VBG HCO3 23 L Sodium BUN Creatinine Glucose Magnesium - Diagnostic Findings Chest x-ray: image reviewed CT scan - chest: image reviewed Assessment and Plan Assessment: Acute hypoxemic respiratory failure secondary to acute community-acquired pneumonia and possible lung cancer. Chest x-ray revealed patchy opacity around the right middle lobe region. CT angiogram ruled out large central or lobar branch pulmonary embolus. Some motion artifact excluded further evaluation of pulmonary embolism. There is a multifocal masslike areas of opacity on the right including a posterior lateral right upper lobe, right infrahilar region, and right midlung. Opacities measuring 4.7 cm in largest may contain some ass ociated inflammatory change. Correlate for multifocal pneumonia or atypical fungal/mycobacterial infections. There is right hilar lymphadenopathy measuring up to 2.9 cm. Cannot exclude neoplastic etiology. Additional consolidation and partial collapse of the right middle lobe. Small right pleural effusion with adjacent atelectasis and/or consolidation Leukocytosis secondary to above Right-sided chest wall pain secondary to above Acute exacerbation of chronic obstructive pulmonary disease secondary to above Chronic and ongoing tobacco dependence of 40 years Chronic daily alcohol abuse, currently residing at [facility] History of depression Homelessness, resides in the [place] area Plan: The patient was seen and evaluated Chest x-ray, CT angiogram, labs and medications reviewed Initially required BiPAP support, currently on 4 L nasal cannula Too unstable to undergo bronchoscopy/biopsies Continue Zosyn, discontinue azithromycin Initiated and DuoNeb inhalations, Pulmicort and Perforomist inhalations, Solu- Medrol Initiated on the [facility] protocol, educated regarding the importance of complete alcohol cessation Initiated and NicoDerm patch, educated regarding the importance of complete smoking cessation Plan will be to optimize his pulmonary status, return to [place] to complete treatment, and follow-up closely with his automatic beam warper tender in [place] We will continue to follow and make further recommendations based on his clinical status I have personally seen and examined the patient, performed the documentation and the assessment and plan as written. Number of minutes spent on the visit: 20.
[2022-12-25] MEDS: levETIRAcetam 500 MG TAB PO SCH (15:53)
[2022-12-25] MEDS: busPIRone HCl 10 MG TAB PO SCH ×2 (15:53→21:26)
[2022-12-25] MEDS: FORMOTEROL FUMARATE 20 MCG/2 ML NEBU INHALATION SCH (20:55)
[2022-12-25] MEDS: BUDESONIDE 1 MG/2 ML NEBU INHALATION SCH (20:55)
[2022-12-26] MEDS: methylPREDNISolone SOD SUCCI 125 MG/2 ML VIAL IV SCH ×4 (00:40→18:35)
[2022-12-26] MEDS: PIPERACILLIN-TAZOBACTAM 3.375 GM in SODIUM CHLORIDE 0.9% 100 ML IVPB SCH ×3 (04:17→20:32)
[2022-12-26] MEDS: levETIRAcetam 500 MG TAB PO SCH ×2 (06:11→16:24)
[2022-12-26] MEDS: MULTIVITAMINS, THERA 1 EACH TAB PO SCH (06:11)
[2022-12-26 06:32] LABS: Glucose,Whole Blood 224 mg/dL (70-110)
[2022-12-26] MEDS: busPIRone HCl 10 MG TAB PO SCH ×3 (08:14→20:32)
[2022-12-26] MEDS: THIAMINE 100 MG TAB PO SCH (08:14)
[2022-12-26] MEDS: ACETAMINOPHEN TAB 325 MG TAB PO SCH ×4 (08:14→20:31)
[2022-12-26] MEDS: NICOTINE 21MG/24HR PATCH TRANSDERM SCH (08:14)
[2022-12-26 08:30] LABS: Basophils % (A) 0 %; Eosinophils # (A) 0.2 k/uL (0-0.7); Eosinophils % (A) 1 %; HCT 37.8 % (39.0-53.0); Lymphocytes # (A) 0.6 k/uL (1.0-4.8); Lymphocytes % (A) 2 %; MCH 33.3 pg (25.0-35.0); MCHC 31.7 g/dL (31.0-37.0); MCV 105.2 fL (80.0-100.0); Macrocytosis Slight; Mean Platelet Volume 7.1; Monocytes # (A) 0.4 k/uL (0-1.0); Monocytes % (A) 2 %; Neutrophils # (A) 24.2 k/uL (1.3-7.7); Neutrophils % (A) 95 %; Platelet Count 742 k/uL (150-450); RDW 12.7 % (11.5-15.5); WBC 25.5 k/uL (3.8-10.6)
[2022-12-26 08:53] LABS: African American GFR (CKD) >90 (>60 ml/min/1.73 sqM); Anion Gap 13 mmol/L; Blood Urea Nitrogen 11 mg/dL (9-20); Calcium 9.7 mg/dL (8.4-10.2); Carbon Dioxide 23 mmol/L (22-30); Chloride 99 mmol/L (98-107); Glucose 224 mg/dL (74-99); Non-African American GFR(CKD) >90 (>60 ml/min/1.73 sqM); Potassium 4.2 mmol/L (3.5-5.1); Sodium 135 mmol/L (137-145)
--- NOTE | 2022-12-26 08:54 | XR ---
EXAMINATION TYPE: XR chest 2V DATE OF EXAM: 12/26/2022 COMPARISON: 12/25/2022 TECHNIQUE: PA and lateral views submitted. HISTORY: Cough FINDINGS: Hyperinflation with small right-sided pleural effusion. Vague nodular density right upper lobe and pe rsistent perihilar consolidation. Chronic rib deformities are seen. Underlying COPD. IMPRESSION: 1. There is a new small right pleural effusion with persistent right perihilar infiltrate. Within the right upper lobe there is a nodular 2.4 cm density which could represent mass or developing infiltra te. Neoplasm in the differential diagnosis.
[2022-12-26] MEDS ORDERED: AZITHROMYCIN 500 MG in SODIUM CHLORIDE 0.9% 250 ML IVPB SCH (09:00)
[2022-12-26] MEDS: IPRATROPIUM-ALBUTEROL 3 ML NEB INHALATION SCH ×5 (09:31→18:47)
[2022-12-26] MEDS: BUDESONIDE 1 MG/2 ML NEBU INHALATION SCH ×2 (09:32→18:47)
[2022-12-26] MEDS: FORMOTEROL FUMARATE 20 MCG/2 ML NEBU INHALATION SCH ×2 (09:32→18:47)
[2022-12-26] MEDS ORDERED: TEMAZEPAM 15 MG CAP PO PRN (10:07)
--- NOTE | 2022-12-26 10:14 | P.PN ---
Subjective This is a pleasant 52 years old male with past medical history of COPD, nicotine dependence, seizure, anxiety and depression Patient was recently discharged from [facility] for right pneumonia and he supposed to follow-up [place] for alcohol withdrawal. Patient admits to drink 1 pint of liquor at 6-12 tall beers a day. Also he smokes about 6 cigarettes per day and was consulted liquids and he agrees any was nicotine patch Pt. comes from [place]- sober x30 days. Hx of COPD. Pt. c/o increased SOB x1 day. Pt. AOx4. Presenting with increased work of breathing. [ End ] Patient is afebrile. He is saturating 95% on 4 L oxygen via nasal cannula..earlier he was on bipap machine. He was tachycardic 123 and tachycardia 25 short of breath on admission. Labs showed leukocytosis of 16.1. Rest of the CBC is unremarkable. INR 1.9. D-dimer is elevated at 3.2. Venous blood gas showing pH is 745 which is mildly elevated, pCO2 low at 33 and venous HCO3 is low at 23. BMP and liver enzymes are unremarkable. Troponin is negative. BNP 327. Pharmacist not detected. including influenza, khan and RSV viruses EKG showing sinus tachycardia at [address]-T changes CT of the chest focal subpleural masslike opacity in the right mid lung measuring 4.7 cm with possible cavitary lesion. Right middle lobe consolidation and pressure collapse. Focal subpleural opacity 2.3 cm and right infrahilar masslike opacity measuring 3.1 cm: and emergency room patient was started on Solu-Medrol and Zithromax. Respiratory dose of Zosyn 12/26/2022 Patient presents with dyspnea on coughing. He has significant right middle and upper lobe pneumonia with acute COPD exacerbation. A distal short of breath and still has chest pain with deep inspiration and coughing at his request some more medication to help him with B symptoms. He can talk and move freely. He still on 4 L oxygen via nasal cannula. Still has leukocytosis 25,000, hemoglobin is 12. He is on Solu-Medrol 60 mg, Zosyn, normal saline. Patient requests something for stated Restoril is added. Also confirms he takes gabapentin 300 mg 3 times a day.. Patient anxiety this morning most likely is related to his infection and hypoxia and possible medication effect with steroids. An gabapentin might help with anxiety. Also benzodiazepine Active Medications Generic Name Dose Route Start Last Admin Trade Name Freq PRN Reason Stop Dose Admin Acetaminophen 650 mg 12/25/22 13:00 12/26/22 08:14 Acetaminophen Tab 325 Mg Tab PO 650 mg QID LISSETTE Administration Albuterol/Ipratropium 3 ml 12/25/22 07:35 Ipratropium-Albuterol 3 Ml Neb INHALATION RT-Q4H PRN shortness of breath Albuterol/Ipratropium 3 ml 12/25/22 12:00 12/26/22 09:31 Ipratropium-Albuterol 3 Ml Neb INHALATION 3 ml RT-QID LISSETTE Administration Budesonide 1 mg 12/25/22 20:00 12/26/22 09:32 Budesonide 1 Mg/2 Ml Nebu INHALATION 1 mg RT-BID LISSETTE Administration Buspirone HCl 10 mg 12/25/22 16:00 12/26/22 08:14 Buspirone Hcl 10 Mg Tab PO 10 mg TID LISSETTE Administration Formoterol Fumarate 20 mcg 12/25/22 20:00 12/26/22 09:32 Formoterol Fumarate 20 Mcg/2 Ml Nebu INHALATION 20 mcg RT-BID LISSETTE Administration Gabapentin 300 mg 12/26/22 10:15 Gabapentin 300 Mg Cap PO TID LISSETTE Guaifenesin 200 mg 12/25/22 12:37 Guaifenesin Syrup 100mg/5ml 200 Mg/10 Ml Cup PO Q4H PRN CHEST CONGESTION Guaifenesin/Dextromethorphan 10 ml 12/26/22 10:15 Guaifenesin-Dm 100-10mg/5ml 10 Ml Cup PO Q8HR LISSETTE Piperacillin Sod/Tazobactam 100 mls @ 25 mls/hr 12/25/22 12:00 12/26/22 04:17 Sod 3.375 gm/ Sodium Chloride IVPB 25 mls/hr Q8H LISSETTE Administration Protocol Levetiracetam 1,000 mg 12/25/22 16:00 12/26/22 06:11 Levetiracetam 500 Mg Tab PO 1,000 mg BID@0600,1600 LISSETTE Administration Lorazepam 1 mg 12/25/22 09:49 Lorazepam 2 Mg/Ml Inj IV Q1HR PRN CIWA 10 to 15 Lorazepam 1 mg 12/25/22 09:49 Lorazepam 2 Mg/Ml Inj IV Q2HR PRN CIWA 8 or 9 Lorazepam 2 mg 12/25/22 09:49 Lorazepam 2 Mg/Ml Inj IV 12/27/22 09:49 Q10M PRN CIWA 16 or higher Methylprednisolone Sodium Succinate 60 mg 12/25/22 12:00 12/26/22 06:11 Methylprednisolone Sod Succi 125 Mg/2 Ml Vial IV 60 mg Q6HR LISSETTE Administration Miscellaneous Information 1 each 12/25/22 07:35 Pneumonia Protocol Utilized 1 Each Misc PO ONCE PRN Per Protocol Miscellaneous Information 1 each 12/25/22 08:57 Pneumonia Protocol Utilized 1 Each Misc PO ONCE PRN Per Protocol Multivitamins 1 each 12/26/22 06:00 12/26/22 06:11 Multivitamins, Thera 1 Each Tab PO 1 each DAILY@0600 LISSETTE Administration Nicotine 1 patch 12/25/22 13:00 12/26/22 08:14 Nicotine 21mg/24hr Patch TRANSDERM 1 patch DAILY LISSETTE Administration Temazepam 15 mg 12/26/22 10:07 Temazepam 15 Mg Cap PO HS PRN Insomnia Thiamine HCl 100 mg 12/26/22 09:00 12/26/22 08:14 Thiamine 100 Mg Tab PO 100 mg DAILY LISSETTE Administration Objective - Vital Signs Vital signs: Vital Signs Temp 98.5 F 12/26/22 08:00 Pulse 104 H 12/26/22 09:48 Resp 18 12/26/22 08:00 BP 128/78 12/26/22 08:00 Pulse Ox 96 12/26/22 08:00 FiO2 50 12/25/22 05:29 Intake & Output 12/25/22 12/26/22 12/26/22 18:59 06:59 18:59 Intake Total 240 Balance 240 Weight 56.5 kg Intake: Oral 240 Other: Voiding Method Toilet # Voids 1 - Exam GENERAL: The patient is alert and oriented x3, not in any acute distress. Well developed, well nourished. HEENT: Pupils are round and equally reacting to light. EOMI. No scleral icterus. No conjunctival pallor. Normocephalic, atraumatic. No pharyngeal erythema. No thyromegaly. CARDIOVASCULAR: S1 and S2 present. No murmurs, rubs, or gallops. -PULMONARY: Bilateral decreased air entry, bilateral expiratory wheezing , no crackles. ABDOMEN: Soft, nontender, nondistended, normoactive bowel sounds. No palpable organomegaly. MUSCULOSKELETAL: No joint swelling or deformity. EXTREMITIES: No cyanosis, clubbing, or pedal edema. NEUROLOGICAL: Gross neurological examination did not reveal any focal deficits. SKIN: No rashes. no petechiae. - Labs CBC & Chem 7: 12/26/22 08:16 12/26/22 08:16 Labs: Abnormal Lab Results - Last 24 Hours (Table) 12/25/22 12/26/22 12/26/22 Range/Units 10:43 06:30 08:16 WBC 25.5 H (3.8-10.6) k/uL RBC 3.60 L (4.30-5.90) m/uL Hgb 12.0 L (13.0-17.5) gm/dL Hct 37.8 L (39.0-53.0) % MCV 105.2 H (80.0-100.0) fL Plt Count 742 H (150-450) k/uL Neutrophils # 24.2 H (1.3-7.7) k/uL Lymphocytes # 0.6 L (1.0-4.8) k/uL Sodium (137-145) mmol/L Creatinine (0.66-1.25) mg/dL Glucose (74-99) mg/dL POC Glucose (mg/dL) 224 H (70-110) mg/dL Procalcitonin 0.74 H (0.02-0.09) ng/mL 12/26/22 Range/Units 08:16 WBC (3.8-10.6) k/uL RBC (4.30-5.90) m/uL Hgb (13.0-17.5) gm/dL Hct (39.0-53.0) % MCV (80.0-100.0) fL Plt Count (150-450) k/uL Neutrophils # (1.3-7.7) k/uL Lymphocytes # (1.0-4.8) k/uL Sodium 135 L (137-145) mmol/L Creatinine 0.40 L (0.66-1.25) mg/dL Glucose 224 H (74-99) mg/dL POC Glucose (mg/dL) (70-110) mg/dL Procalcitonin (0.02-0.09) ng/mL Assessment and Plan Assessment: COPD with acute exacerbation right middle lobe pneumonia and masslike opacity in the right midlung 4.7 cm with possible cavitary lesion + on right upper lobe opacity 2.3 cm + right infrahilar masslike opacity 3.1 cm mild acute hypoxic respiratory failure nicotine dependence history of seizure anxiety and depression Plan: Continue with [facility] protocol thiamine, currently on Zosyn and Zithromax. Follow-up culture results pulmonary team consult Labs and medication were reviewed.. Continue same treatment. Continue with symptomatic treatment. Resume home medication. Monitor labs and vitals. DVT and GI prophylaxis. Further recommendations as per clinical course of the patient DVT prophylaxis: Subcutaneous heparin GI Prophylaxis: Pepcid PT/OT: Pending Prognosis is guarded
[2022-12-26] MEDS: GABAPENTIN 300 MG CAP PO SCH ×3 (10:32→20:31)
[2022-12-26] MEDS: guaiFENesin-DM 100-10MG/5ML 10 ML CUP PO SCH ×2 (11:35→16:24)
[2022-12-26 11:48] LABS: Glucose,Whole Blood 164 mg/dL (70-110)
--- NOTE | 2022-12-26 16:38 | P.PN ---
Subjective Progress Note Date: 12/26/22 This is a 52-year-old male patient with a known history of depression, chronic obstructive pulmonary disease, chronic and ongoing tobacco dependence, daily alcohol abuse who was currently in rehabilitation at [facility] for the past 8 days. He states his last drink was 11/24/2022. He was brought in early this morning for significant shortness of breath, cough and congestion. [facility] for [facility]. He was recently started on Trelegy and albuterol by a human resources hr representative in [place]. He resides in [place]. He is seen today in consultation in the emergency department. He was initially requiring BiPAP support 02/17 on 40% FiO2. He is currently on 4 L nasal cannula. He is quite dyspneic with minimal exertion. Dyspneic with conversation. He has had some pink tinged sputum. He has significant right sided chest wall pain. Chest x-ray revealed patchy opacity around the right middle lobe region. CT angiogram ruled out large central or lobar branch pulmonary embolus. Portable is some motion artifact excluded further evaluation of pulmonary embolism. There is a multifocal masslike areas of opacity on the right including a posterior lateral right upper lobe, right infrahilar region, and right midlung. Opacities measuring 4.7 cm in largest may contain some associated inflammatory change. Correlate for multifocal pneumonia or atypical fungal/mycobacterial infections. There is right hilar lymphadenopathy measuring up to 2.9 cm. Cannot exclude neoplastic etiology. Additional consolidation and partial collapse of the right middle lobe. Small right pleural effusion with adjacent atelectasis and/or consolidation. White count 16.1. Hemoglobin 14.4. Platelets 800. MCV 103.8. D-dimer 3.28. Sodium 136. Potassium 4.6. Bicarb 25. BUN 7. Creatinine 0.42. Glucose 116. AST 24. ALT 24. Troponin negative 1. ProBNP 327. Influenza screen negative. RSV screen negative. COVID-19 screen negative. The patient is seen today 12/26/2022 in follow-up on the selective care unit. He is doing quite a bit better today compared to yesterday. He is maintaining O2 saturations in the 90s on 4 L/m per nasal cannula. He did continue to utilize BiPAP throughout the night 12/18 on 40% FiO2. He is much less diminished today. Chest x-ray reveals a new small right pleural effusion with persistent right perihilar infiltrate. Within the right upper lobe there is a nodular 2.4 cm density that could represent mass or developing infiltrate. White count 25.5. Hemoglobin 12.0. Platelets 742. Sodium 135. Potassium 4.2. Bicarb 23. BUN 11. Creatinine 0.40. Glucose 224. Pro-calcitonin 0.74. He is continued on DuoNeb inhalations, Pulmicort and Perforomist inhalations, IV Solu-Medrol. NicoDerm patch in place. Remains on the CIWA protocol. Antibiotics in the form of Zosyn. Objective - Vital Signs Vital signs: Vital Signs Temp 97.8 F 12/26/22 12:00 Pulse 92 12/26/22 16:27 Resp 18 12/26/22 14:00 BP 118/69 12/26/22 12:00 Pulse Ox 97 12/26/22 12:00 FiO2 50 12/25/22 05:29 Intake & Output 12/25/22 12/26/22 12/26/22 18:59 06:59 18:59 Intake Total 720 Balance 720 Weight 56.5 kg Intake: Oral 720 Other: Voiding Method Toilet Toilet # Voids 1 4 # Bowel Movements 0 - Exam GENERAL EXAM: Alert, 52-year-old male, sitting up at the bedside. Improved, on 4 L nasal cannula. HEAD: Normocephalic. EYES: Normal reaction of pupils, equal size. NOSE: Clear with pink turbinates. THROAT: No erythema or exudates. NECK: No masses, no JVD. CHEST: No chest wall deformity. LUNGS: Equal air entry with bilateral wheezing, crackles and rhonchi throughout the right lung. CVS: S1 and S2 normal with no audible murmur, regular rhythm. ABDOMEN: No hepatosplenomegaly, normal bowel sounds, no guarding or rigidity. SPINE: No scoliosis or deformity SKIN: No rashes CENTRAL NERVOUS SYSTEM: No focal deficits, tone is normal in all 4 extremities. EXTREMITIES: There is no peripheral edema. No clubbing, no cyanosis. Peripheral pulses are intact. - Labs CBC & Chem 7: 12/26/22 08:16 12/26/22 08:16 Labs: Abnormal Lab Results - Last 24 Hours (Table) 12/25/22 12/26/22 12/26/22 Range/Units 10:43 06:30 08:16 WBC 25.5 H (3.8-10.6) k/uL RBC 3.60 L (4.30-5.90) m/uL Hgb 12.0 L (13.0-17.5) gm/dL Hct 37.8 L (39.0-53.0) % MCV 105.2 H (80.0-100.0) fL Plt Count 742 H (150-450) k/uL Neutrophils # 24.2 H (1.3-7.7) k/uL Lymphocytes # 0.6 L (1.0-4.8) k/uL Sodium (137-145) mmol/L Creatinine (0.66-1.25) mg/dL Glucose (74-99) mg/dL POC Glucose (mg/dL) 224 H (70-110) mg/dL Procalcitonin 0.74 H (0.02-0.09) ng/mL 12/26/22 12/26/22 Range/Units 08:16 11:46 WBC (3.8-10.6) k/uL RBC (4.30-5.90) m/uL Hgb (13.0-17.5) gm/dL Hct (39.0-53.0) % MCV (80.0-100.0) fL Plt Count (150-450) k/uL Neutrophils # (1.3-7.7) k/uL Lymphocytes # (1.0-4.8) k/uL Sodium 135 L (137-145) mmol/L Creatinine 0.40 L (0.66-1.25) mg/dL Glucose 224 H (74-99) mg/dL POC Glucose (mg/dL) 164 H (70-110) mg/dL Procalcitonin (0.02-0.09) ng/mL Assessment and Plan Assessment: Acute hypoxemic respiratory failure secondary to acute community-acquired pneumonia and possible lung cancer. Chest x-ray revealed patchy opacity around the right middle lobe region. CT angiogram ruled out large central or lobar branch pulmonary embolus. Some motion artifact excluded further evaluation of pulmonary embolism. There is a multifocal masslike areas of opacity on the right including a posterior lateral right upper lobe, right infrahilar region, and right midlung. Opacities measuring 4.7 cm in largest may contain some associated inflammatory change. Correlate for multifocal pneumonia or atypical fungal/mycobacterial infections. There is right hilar lymphadenopathy measuring up to 2.9 cm. Cannot exclude neoplastic etiology. Additional consolidation and partial collapse of the right middle lobe. Small right pleural effusion with adjacent atelectasis and/or consolidation. Pro calcitonin 0.74. Continued on Zosyn Leukocytosis secondary to above Right-sided chest wall pain secondary to above Acute exacerbation of chronic obstructive pulmonary disease secondary to above Chronic and ongoing tobacco dependence of 40 years Chronic daily alcohol abuse, currently residing at [facility] History of depression Homelessness, resides in the [facility] Plan: The patient was seen and evaluated Chest x-ray, labs and medications reviewed Alternating between BiPAP support, currently on 4 L nasal cannula Continue Zosyn Continue bronchodilators, steroids Continue the CIWA protocol Continue to optimize his pulmonary status Plan is to return to [facility] to complete treatment Again educated regarding the importance of close follow-up with his human resources hr representative in [place] Will need follow-up computed tomography scan of the chest in outpatient setting We will continue to follow I have personally seen and examined the patient, performed the documentation and the assessment and plan as written. Number of minutes spent on the visit: 10.
[2022-12-26 16:41] LABS: Glucose,Whole Blood 172 mg/dL (70-110)
[2022-12-26 19:36] LABS: Glucose,Whole Blood 176 mg/dL (70-110)
[2022-12-27] MEDS: guaiFENesin-DM 100-10MG/5ML 10 ML CUP PO SCH ×4 (00:18→23:34)
[2022-12-27] MEDS: methylPREDNISolone SOD SUCCI 125 MG/2 ML VIAL IV SCH ×5 (00:18→23:34)
[2022-12-27] MEDS: IPRATROPIUM-ALBUTEROL 3 ML NEB INHALATION PRN ×2 (05:01→08:31)
[2022-12-27] MEDS: levETIRAcetam 500 MG TAB PO SCH ×2 (05:06→16:45)
[2022-12-27] MEDS: PIPERACILLIN-TAZOBACTAM 3.375 GM in SODIUM CHLORIDE 0.9% 100 ML IVPB SCH ×3 (05:06→21:03)
[2022-12-27] MEDS: MULTIVITAMINS, THERA 1 EACH TAB PO SCH (05:06)
[2022-12-27 05:59] LABS: Glucose,Whole Blood 192 mg/dL (70-110)
[2022-12-27] MEDS: BUDESONIDE 1 MG/2 ML NEBU INHALATION SCH ×2 (08:30→18:43)
[2022-12-27] MEDS: FORMOTEROL FUMARATE 20 MCG/2 ML NEBU INHALATION SCH ×2 (08:30→18:43)
[2022-12-27] MEDS: GABAPENTIN 300 MG CAP PO SCH ×3 (09:15→23:34)
[2022-12-27] MEDS: ACETAMINOPHEN TAB 325 MG TAB PO SCH ×4 (09:15→21:04)
[2022-12-27] MEDS: busPIRone HCl 10 MG TAB PO SCH ×3 (09:16→23:34)
[2022-12-27] MEDS: NICOTINE 21MG/24HR PATCH TRANSDERM SCH (09:16)
[2022-12-27] MEDS: THIAMINE 100 MG TAB PO SCH (09:16)
[2022-12-27 11:36] LABS: Glucose,Whole Blood 215 mg/dL (70-110)
[2022-12-27] MEDS: IPRATROPIUM-ALBUTEROL 3 ML NEB INHALATION SCH ×3 (11:53→18:43)
[2022-12-27 13:20] VITALS: BMI 18.9
--- NOTE | 2022-12-27 13:54 | P.PN ---
Subjective This is a pleasant 52 years old male with past medical history of COPD, nicotine dependence, seizure, anxiety and depression Patient was recently discharged from [facility] for right pneumonia and he supposed to follow-up [facility] for alcohol withdrawal. Patient admits to drink 1 pint of liquor at 6-12 tall beers a day. Also he smokes about 6 cigarettes per day and was consulted liquids and he agrees any was nicotine patch Pt. comes from [facility]- sober x30 days. Hx of COPD. Pt. c/o increased SOB x1 day. Pt. AOx4. Presenting with increased work of breathing. [ End ] Patient is afebrile. He is saturating 95% on 4 L oxygen via nasal cannula..earlier he was on bipap machine. He was tachycardic 123 and tachycardia 25 short of breath on admission. Labs showed leukocytosis of 16.1. Rest of the CBC is unremarkable. INR 1.9. D-dimer is elevated at 3.2. Venous blood gas showing pH is 745 which is mildly elevated, pCO2 low at 33 and venous HCO3 is low at 23. BMP and liver enzymes are unremarkable. Troponin is negative. BNP 327. Pharmacist not detected. including influenza, khan and RSV viruses EKG showing sinus tachycardia at [address]-T changes CT of the chest focal subpleural masslike opacity in the right mid lung measuring 4.7 cm with possible cavitary lesion. Right middle lobe consolidation and pressure collapse. Focal subpleural opacity 2.3 cm and right infrahilar masslike opacity measuring 3.1 cm: and emergency room patient was started on Solu-Medrol and Zithromax. Respiratory dose of Zosyn 12/26/2022 Patient presents with dyspnea on coughing. He has significant right middle and upper lobe pneumonia with acute COPD exacerbation. A distal short of breath and still has chest pain with deep inspiration and coughing at his request some more medication to help him with B symptoms. He can talk and move freely. He still on 4 L oxygen via nasal cannula. Still has leukocytosis 25,000, hemoglobin is 12. He is on Solu-Medrol 60 mg, Zosyn, normal saline. Patient requests something for stated Restoril is added. Also confirms he takes gabapentin 300 mg 3 times a day.. Patient anxiety this morning most likely is related to his infection and hypoxia and possible medication effect with steroids. An gabapentin might help with anxiety. Also benzodiazepine 12/27/1942 Patient improving significantly and he feels better, his walking in the room on room air. This case that discomfort and chest pain is improving Nevertheless patient still requires IV antibiotic given his extensive pneumonia failed outpatient treatment, Monitor WBC, alpha-1 antitrypsin level Objective - Vital Signs Vital signs: Vital Signs Temp 97.7 F 12/27/22 08:00 Pulse 99 12/27/22 12:00 Resp 16 12/27/22 12:00 BP 131/79 12/27/22 12:00 Pulse Ox 95 12/27/22 12:00 FiO2 50 12/25/22 05:29 Intake & Output 12/26/22 12/27/22 12/27/22 18:59 06:59 18:59 Intake Total 720 236 420 Balance 720 236 420 Weight 56.5 kg Intake: Oral 720 236 420 Other: Voiding Method Toilet Toilet Toilet # Voids 3 2 # Bowel Movements 0 - Exam GENERAL: The patient is alert and oriented x3, not in any acute distress. Well developed, well nourished. HEENT: Pupils are round and equally reacting to light. EOMI. No scleral icterus. No conjunctival pallor. Normocephalic, atraumatic. No pharyngeal erythema. No thyromegaly. CARDIOVASCULAR: S1 and S2 present. No murmurs, rubs, or gallops. -PULMONARY: Bilateral decreased air entry, bilateral expiratory wheezing , no crackles. ABDOMEN: Soft, nontender, nondistended, normoactive bowel sounds. No palpable organomegaly. MUSCULOSKELETAL: No joint swelling or deformity. EXTREMITIES: No cyanosis, clubbing, or pedal edema. NEUROLOGICAL: Gross neurological examination did not reveal any focal deficits. SKIN: No rashes. no petechiae. - Labs CBC & Chem 7: 12/26/22 08:16 12/26/22 08:16 Labs: Abnormal Lab Results - Last 24 Hours (Table) 12/26/22 12/26/22 12/27/22 Range/Units 16:38 19:34 05:57 POC Glucose (mg/dL) 172 H 176 H 192 H (70-110) mg/dL 12/27/22 Range/Units 11:34 POC Glucose (mg/dL) 215 H (70-110) mg/dL Microbiology - Last 24 Hours (Table) 12/25/22 21:20 Gram Stain - Preliminary Sputum Sputum Culture - Preliminary 12/25/22 08:30 Blood Culture - Preliminary Blood 12/25/22 08:45 Blood Culture - Preliminary Blood Assessment and Plan Assessment: COPD with acute exacerbation Right middle lobe pneumonia and masslike opacity in the right midlung 4.7 cm with possible cavitary lesion + on right upper lobe opacity 2.3 cm + right infrahilar masslike opacity 3.1 cm mild acute hypoxic respiratory failure nicotine dependence history of seizure anxiety and depression Plan: Continue with [facility] protocol thiamine, currently on Zosyn and Zithromax. Follow-up culture results pulmonary team consult Labs and medication were reviewed.. Continue same treatment. Continue with symptomatic treatment. Resume home medication. Monitor labs and vitals. DVT and GI prophylaxis. Further recommendations as per clinical course of the patient DVT prophylaxis: Subcutaneous heparin GI Prophylaxis: Pepcid PT/OT: Pending Prognosis is guarded
--- NOTE | 2022-12-27 14:45 | P.PN ---
Subjective Progress Note Date: 12/27/22 Principal diagnosis: Acute hypoxic respiratory failure secondary to acute exacerbation of COPD and acute community-acquired pneumonia possible underlying bronchogenic carcinoma This is a 52-year-old male patient with a known history of depression, chronic obstructive pulmonary disease, chronic and ongoing tobacco dependence, daily alcohol abuse who was currently in rehabilitation at [facility] for the past 8 days. He states his last drink was 11/24/2022. He was brought in early this morning for significant shortness of breath, cough and congestion. He was recently at a [facility] 2 weeks ago for pneumonia. He was recently started on Trelegy and albuterol by a analytical engineer in [place]. He resides in [place]. He is seen today in consultation in the emergency department. He was initially requiring BiPAP support 02/17 on 40% FiO2. He is currently on 4 L nasal cannula. He is quite dyspneic with minimal exertion. Dyspneic with conversation. He has had some pink tinged sputum. He has significant right sided chest wall pain. Chest x-ray revealed patchy opacity around the right middle lobe region. CT angiogram ruled out large central or lobar branch pulmonary embolus. Portable is some motion artifact excluded further evaluation of pulmonary embolism. There is a multifocal masslike areas of opacity on the right including a posterior lateral right upper lobe, right infrahilar region, and right midlung. Opacities measuring 4.7 cm in largest may contain some associated inflammatory change. Correlate for multifocal pneumonia or atypical fungal/mycobacterial infections. There is right hilar lymphadenopathy measuring up to 2.9 cm. Cannot exclude neoplastic etiology. Additional consolidation and partial collapse of the right middle lobe. Small right pleural effusion with adjacent atelectasis and/or consolidation. White count 16.1. Hemoglobin 14.4. Platelets 800. MCV 103.8. D-dimer 3.28. Sodium 136. Potassium 4.6. Bicarb 25. BUN 7. Creatinine 0.42. Glucose 116. AST 24. ALT 24. Troponin negative 1. ProBNP 327. Influenza screen negative. RSV screen negative. COVID-19 screen negative. The patient is seen today 12/26/2022 in follow-up on the selective care unit. He is doing quite a bit better today compared to yesterday. He is maintaining O2 saturations in the 90s on 4 L/m per nasal cannula. He did continue to utilize BiPAP throughout the night 12/18 on 40% FiO2. He is much less diminished today. Chest x-ray reveals a new small right pleural effusion with persistent right perihilar infiltrate. Within the right upper lobe there is a nodular 2.4 cm density that could represent mass or developing infiltrate. White count 25.5. Hemoglobin 12.0. Platelets 742. Sodium 135. Potassium 4.2. Bicarb 23. BUN 11. Creatinine 0.40. Glucose 224. Pro-calcitonin 0.74. He is continued on DuoNeb inhalations, Pulmicort and Perforomist inhalations, IV Solu-Medrol. NicoDerm patch in place. Remains on the CIWA protocol. Antibiotics in the form of Zosyn. Patient was reevaluated today on 12/27/2022, feeling better breathing easier he is now on room air with O2 sats of 95%. Chest x-ray yesterday showed improvement but nonetheless persistent right perihilar infiltrate and a right upper lobe nodularity 2.4 cm density which could still represent a lung mass. And the patient is very well aware of this, he is to have outpatient follow-up with his analytical engineer in [place]. Objective - Vital Signs Vital signs: Vital Signs Temp 97.7 F 12/27/22 08:00 Pulse 99 12/27/22 12:00 Resp 16 12/27/22 12:00 BP 131/79 12/27/22 12:00 Pulse Ox 95 12/27/22 12:00 FiO2 50 12/25/22 05:29 Intake & Output 12/26/22 12/27/22 12/27/22 18:59 06:59 18:59 Intake Total 720 236 420 Balance 720 236 420 Weight 56.5 kg Intake: Oral 720 236 420 Other: Voiding Method Toilet Toilet Toilet # Voids 3 2 # Bowel Movements 0 - Exam Physical Exam: Revealed a 52-year-old white male in no distress on room air Head: Atraumatic, normocephalic HEENT:[Neck is supple.] [No neck masses.] [No thyromegaly.] [No JVD.] Chest: [Diminished breath sound bilaterally no crackles or rhonchi or wheezes Cardiac Exam: [Normal S1 and S2, no S3 gallop, no murmur.] Abdomen: [Soft, nontender, no megaly, no rebound, no guarding, normal bowel sounds.] Extremities: [No clubbing, no edema, no cyanosis.] Neurological Exam: [No focal neurologic deficit.] Alert oriented 3 Psychiatric: Normal mood, affect and normal mental status examination. Skin: No rashes - Labs CBC & Chem 7: 12/26/22 08:16 12/26/22 08:16 Labs: Abnormal Lab Results - Last 24 Hours (Table) 12/26/22 12/26/22 12/27/22 Range/Units 16:38 19:34 05:57 POC Glucose (mg/dL) 172 H 176 H 192 H (70-110) mg/dL 12/27/22 Range/Units 11:34 POC Glucose (mg/dL) 215 H (70-110) mg/dL Microbiology - Last 24 Hours (Table) 12/25/22 21:20 Gram Stain - Preliminary Sputum Sputum Culture - Preliminary 12/25/22 08:30 Blood Culture - Preliminary Blood 12/25/22 08:45 Blood Culture - Preliminary Blood Assessment and Plan Assessment: Impression: Uterus hypoxic respiratory failure secondary to acute exacerbation of COPD and acute community-acquired pneumonia, possible underlying bronchogenic carcinoma Acute exacerbation of COPD Chronic and ongoing tobacco dependence for the last 40 years Alcohol abuse, patient is residing at [facility] History of depression Homelessness, resides in [facility]. Recommendation: Continue bronchodilators Continue Zosyn Continue methylprednisolone Continue CIWA protocol Consider discharge planning back to [facility] in the next 24-48 hours Must have follow-up with the analytical engineer on outpatient basis and should have a repeat CT of the chest in the next few weeks If the CT of the chest continues to show nodular abnormality in the lung, patient will need to have a PET scan and possibly a lung biopsy Continue to follow for Time with Patient: Less than 30
[2022-12-27 16:36] LABS: Glucose,Whole Blood 153 mg/dL (70-110)
[2022-12-27 20:10] LABS: Glucose,Whole Blood 180 mg/dL (70-110)
[2022-12-28] MEDS: PIPERACILLIN-TAZOBACTAM 3.375 GM in SODIUM CHLORIDE 0.9% 100 ML IVPB SCH ×3 (05:24→20:44)
[2022-12-28] MEDS: MULTIVITAMINS, THERA 1 EACH TAB PO SCH (05:26)
[2022-12-28] MEDS: levETIRAcetam 500 MG TAB PO SCH ×2 (05:26→16:46)
[2022-12-28] MEDS: methylPREDNISolone SOD SUCCI 125 MG/2 ML VIAL IV SCH ×4 (05:26→23:31)
[2022-12-28 05:57] LABS: Glucose,Whole Blood 145 mg/dL (70-110)
[2022-12-28] MEDS: NICOTINE 21MG/24HR PATCH TRANSDERM SCH (08:35)
[2022-12-28] MEDS: guaiFENesin-DM 100-10MG/5ML 10 ML CUP PO SCH ×3 (08:35→23:31)
[2022-12-28] MEDS: ACETAMINOPHEN TAB 325 MG TAB PO SCH ×4 (08:35→20:45)
[2022-12-28] MEDS: GABAPENTIN 300 MG CAP PO SCH ×3 (08:35→20:45)
[2022-12-28] MEDS: THIAMINE 100 MG TAB PO SCH (08:35)
[2022-12-28] MEDS: busPIRone HCl 10 MG TAB PO SCH ×3 (08:36→20:45)
[2022-12-28] MEDS: FORMOTEROL FUMARATE 20 MCG/2 ML NEBU INHALATION SCH ×2 (09:16→22:35)
[2022-12-28] MEDS: IPRATROPIUM-ALBUTEROL 3 ML NEB INHALATION SCH ×4 (09:17→22:34)
[2022-12-28] MEDS: BUDESONIDE 1 MG/2 ML NEBU INHALATION SCH ×2 (09:17→22:34)
[2022-12-28 09:31] LABS: Basophils % (A) 0 %; Eosinophils # (A) 0.1 k/uL (0-0.7); Eosinophils % (A) 0 %; HCT 37.1 % (39.0-53.0); HGB 11.8 gm/dL (13.0-17.5); Lymphocytes # (A) 0.8 k/uL (1.0-4.8); Lymphocytes % (A) 5 %; MCHC 31.9 g/dL (31.0-37.0); MCV 103.4 fL (80.0-100.0); Macrocytosis Slight; Mean Platelet Volume 7.1; Monocytes # (A) 0.5 k/uL (0-1.0); Monocytes % (A) 3 %; Neutrophils # (A) 14.7 k/uL (1.3-7.7); Neutrophils % (A) 92 %; Platelet Count 800 k/uL (150-450); RBC 3.59 m/uL (4.30-5.90); RDW 12.8 % (11.5-15.5); WBC 16.1 k/uL (3.8-10.6)
[2022-12-28 09:43] LABS: African American GFR (CKD) >90 (>60 ml/min/1.73 sqM); Anion Gap 13 mmol/L; Blood Urea Nitrogen 11 mg/dL (9-20); Calcium 10.2 mg/dL (8.4-10.2); Carbon Dioxide 27 mmol/L (22-30); Chloride 96 mmol/L (98-107); Glucose 147 mg/dL (74-99); Non-African American GFR(CKD) >90 (>60 ml/min/1.73 sqM); Potassium 4.5 mmol/L (3.5-5.1); Sodium 136 mmol/L (137-145)
--- NOTE | 2022-12-28 11:35 | P.PN ---
Subjective This is a pleasant 52 years old male with past medical history of COPD, nicotine dependence, seizure, anxiety and depression Patient was recently discharged from [facility] for right pneumonia and he supposed to follow-up [place] for alcohol withdrawal. Patient admits to drink 1 pint of liquor at 6-12 tall beers a day. Also he smokes about 6 cigarettes per day and was consulted liquids and he agrees any was nicotine patch Pt. comes from [place]- sober x30 days. Hx of COPD. Pt. c/o increased SOB x1 day. Pt. AOx4. Presenting with increased work of breathing. [ End ] Patient is afebrile. He is saturating 95% on 4 L oxygen via nasal cannula..earlier he was on bipap machine. He was tachycardic 123 and tachycardia 25 short of breath on admission. Labs showed leukocytosis of 16.1. Rest of the CBC is unremarkable. INR 1.9. D-dimer is elevated at 3.2. Venous blood gas showing pH is 745 which is mildly elevated, pCO2 low at 33 and venous HCO3 is low at 23. BMP and liver enzymes are unremarkable. Troponin is negative. BNP 327. Pharmacist not detected. including influenza, khan and RSV viruses EKG showing sinus tachycardia at [address]-T changes CT of the chest focal subpleural masslike opacity in the right mid lung measuring 4.7 cm with possible cavitary lesion. Right middle lobe consolidation and pressure collapse. Focal subpleural opacity 2.3 cm and right infrahilar masslike opacity measuring 3.1 cm: and emergency room patient was started on Solu-Medrol and Zithromax. Respiratory dose of Zosyn 12/26/2022 Patient presents with dyspnea on coughing. He has significant right middle and upper lobe pneumonia with acute COPD exacerbation. A distal short of breath and still has chest pain with deep inspiration and coughing at his request some more medication to help him with B symptoms. He can talk and move freely. He still on 4 L oxygen via nasal cannula. Still has leukocytosis 25,000, hemoglobin is 12. He is on Solu-Medrol 60 mg, Zosyn, normal saline. Patient requests something for stated Restoril is added. Also confirms he takes gabapentin 300 mg 3 times a day.. Patient anxiety this morning most likely is related to his infection and hypoxia and possible medication effect with steroids. An gabapentin might help with anxiety. Also benzodiazepine 12/27/2022 Patient improving significantly and he feels better, his walking in the room on room air. This case that discomfort and chest pain is improving Nevertheless patient still requires IV antibiotic given his extensive pneumonia failed outpatient treatment, Monitor WBC, alpha-1 antitrypsin level 12/28/2022 Patient continued to improve in his breathing. He denies chest pain. No coughing which is improved with cough medicine His breathing is also improving and he is able to walk in the room more freely Distal have some wheezing. His WBC is coming down to 16,000, hemoglobin stable at 11.8. Is requiring less oxygen. He remains on Zosyn and ampicillin Medrol. No signs of withdrawal. No IV fluids. Possible discharge in 24-48 hours. Patient's was [place] upon discharge. Objective - Vital Signs Vital signs: Vital Signs Temp 97.9 F 12/28/22 08:00 Pulse 96 12/28/22 09:43 Resp 16 12/28/22 08:00 BP 160/89 12/28/22 08:00 Pulse Ox 99 12/28/22 09:17 FiO2 50 12/25/22 05:29 Intake & Output 12/27/22 12/28/22 12/28/22 18:59 06:59 18:59 Intake Total 420 1000 118 Balance 420 1000 118 Weight 56.5 kg Intake: Oral 420 1000 118 Other: Voiding Method Toilet Toilet Toilet # Voids 2 1 1 - Exam GENERAL: The patient is alert and oriented x3, not in any acute distress. Well developed, well nourished. HEENT: Pupils are round and equally reacting to light. EOMI. No scleral icterus. No conjunctival pallor. Normocephalic, atraumatic. No pharyngeal erythema. No thyromegaly. CARDIOVASCULAR: S1 and S2 present. No murmurs, rubs, or gallops. -PULMONARY: Bilateral decreased air entry, bilateral expiratory wheezing , no crackles. ABDOMEN: Soft, nontender, nondistended, normoactive bowel sounds. No palpable organomegaly. MUSCULOSKELETAL: No joint swelling or deformity. EXTREMITIES: No cyanosis, clubbing, or pedal edema. NEUROLOGICAL: Gross neurological examination did not reveal any focal deficits. SKIN: No rashes. no petechiae. - Labs CBC & Chem 7: 12/28/22 08:50 12/28/22 08:50 Labs: Abnormal Lab Results - Last 24 Hours (Table) 12/27/22 12/27/22 12/27/22 Range/Units 11:34 16:34 20:06 WBC (3.8-10.6) k/uL RBC (4.30-5.90) m/uL Hgb (13.0-17.5) gm/dL Hct (39.0-53.0) % MCV (80.0-100.0) fL Plt Count (150-450) k/uL Neutrophils # (1.3-7.7) k/uL Lymphocytes # (1.0-4.8) k/uL Sodium (137-145) mmol/L Chloride (98-107) mmol/L Creatinine (0.66-1.25) mg/dL Glucose (74-99) mg/dL POC Glucose (mg/dL) 215 H 153 H 180 H (70-110) mg/dL 12/28/22 12/28/22 12/28/22 Range/Units 05:48 08:50 08:50 WBC 16.1 H (3.8-10.6) k/uL RBC 3.59 L (4.30-5.90) m/uL Hgb 11.8 L (13.0-17.5) gm/dL Hct 37.1 L (39.0-53.0) % MCV 103.4 H (80.0-100.0) fL Plt Count 800 H (150-450) k/uL Neutrophils # 14.7 H (1.3-7.7) k/uL Lymphocytes # 0.8 L (1.0-4.8) k/uL Sodium 136 L (137-145) mmol/L Chloride 96 L (98-107) mmol/L Creatinine 0.44 L (0.66-1.25) mg/dL Glucose 147 H (74-99) mg/dL POC Glucose (mg/dL) 145 H (70-110) mg/dL Microbiology - Last 24 Hours (Table) 12/25/22 21:20 Gram Stain - Final Sputum Sputum Culture - Final 12/25/22 08:30 Blood Culture - Preliminary Blood 12/25/22 08:45 Blood Culture - Preliminary Blood Assessment and Plan Assessment: COPD with acute exacerbation Right middle lobe pneumonia and masslike opacity in the right midlung 4.7 cm with possible cavitary lesion + on right upper lobe opacity 2.3 cm + right infrahilar masslike opacity 3.1 cm mild acute hypoxic respiratory failure nicotine dependence history of seizure anxiety and depression Plan: Continue with CIAR protocol thiamine, currently on Zosyn and Zithromax. Follow-up culture results pulmonary team consult Labs and medication were reviewed.. Continue same treatment. Continue with symptomatic treatment. Resume home medication. Monitor labs and vitals. DVT and GI prophylaxis. Further recommendations as per clinical course of the patient DVT prophylaxis: Subcutaneous heparin GI Prophylaxis: Pepcid Prognosis is guarded
[2022-12-28 11:40] LABS: Glucose,Whole Blood 155 mg/dL (70-110)
--- NOTE | 2022-12-28 15:09 | P.PN ---
Subjective Progress Note Date: 12/28/22 This is a 52-year-old male patient with a known history of depression, chronic obstructive pulmonary disease, chronic and ongoing tobacco dependence, daily alcohol abuse who was currently in rehabilitation at [facility] for the past 8 days. He states his last drink was 11/24/2022. He was brought in early this morning for significant shortness of breath, cough and congestion. He was recently at a [facility] 2 weeks ago for pneumonia. He was recently started on Trelegy and albuterol by a data network architect in [place]. He resides in [place]. He is seen today in consultation in the emergency department. He was initially requiring BiPAP support 02/17 on 40% FiO2. He is currently on 4 L nasal cannula. He is quite dyspneic with minimal exertion. Dyspneic with conversation. He has had some pink tinged sputum. He has significant right sided chest wall pain. Chest x-ray revealed patchy opacity around the right middle lobe region. CT angiogram ruled out large central or lobar branch pulmonary embolus. Portable is some motion artifact excluded further evaluation of pulmonary embolism. There is a multifocal masslike areas of opacity on the right including a posterior lateral right upper lobe, right infrahilar region, and right midlung. Opacities measuring 4.7 cm in largest may contain some associated inflammatory change. Correlate for multifocal pneumonia or atypical fungal/mycobacterial infections. There is right hilar lymphadenopathy measuring up to 2.9 cm. Cannot exclude neoplastic etiology. Additional consolidation and partial collapse of the right middle lobe. Small right pleural effusion with adjacent atelectasis and/or consolidation. White count 16.1. Hemoglobin 14.4. Platelets 800. MCV 103.8. D-dimer 3.28. Sodium 136. Potassium 4.6. Bicarb 25. BUN 7. Creatinine 0.42. Glucose 116. AST 24. ALT 24. Troponin negative 1. ProBNP 327. Influenza screen negative. RSV screen negative. COVID-19 screen negative. The patient is seen today 12/26/2022 in follow-up on the selective care unit. He is doing quite a bit better today compared to yesterday. He is maintaining O2 saturations in the 90s on 4 L/m per nasal cannula. He did continue to utilize BiPAP throughout the night 12/18 on 40% FiO2. He is much less diminished today. Chest x-ray reveals a new small right pleural effusion with persistent right perihilar infiltrate. Within the right upper lobe there is a nodular 2.4 cm density that could represent mass or developing infiltrate. White count 25.5. Hemoglobin 12.0. Platelets 742. Sodium 135. Potassium 4.2. Bicarb 23. BUN 11. Creatinine 0.40. Glucose 224. Pro-calcitonin 0.74. He is continued on DuoNeb inhalations, Pulmicort and Perforomist inhalations, IV Solu-Medrol. NicoDerm patch in place. Remains on the CIWA protocol. Antibiotics in the form of Zosyn. Patient was reevaluated today on 12/27/2022, feeling better breathing easier he is now on room air with O2 sats of 95%. Chest x-ray yesterday showed improvement but nonetheless persistent right perihilar infiltrate and a right upper lobe nodularity 2.4 cm density which could still represent a lung mass. And the patient is very well aware of this, he is to have outpatient follow-up with his data network architect in [place]. The patient is seen today 12/28/2022 in follow-up on the selective care unit. He is up ambulating in his room. Awake and alert in no acute distress. He is maintaining good O2 saturations in the mid 90s on room air. He's been afebrile. Hemodynamically stable. Blood cultures revealed no growth. Sputum culture revealed no growth. White count 16.1. Hemoglobin 11.8. MCV 103.4. Sodium 136. Potassium 4.5. Bicarb 27. BUN 11. Creatinine 0.44. Glucose 147. He remains on DuoNeb inhalations, Pulmicort and Perforomist inhalations, Solu- Medrol. Antibiotics in the form of Zosyn. NicoDerm patch in place. Remains in the CIWA protocol. He has not required any Ativan. Objective - Vital Signs Vital signs: Vital Signs Temp 97.9 F 12/28/22 08:00 Pulse 96 12/28/22 12:43 Resp 20 12/28/22 12:33 BP 144/73 12/28/22 12:00 Pulse Ox 95 12/28/22 12:00 FiO2 50 12/25/22 05:29 Intake & Output 12/27/22 12/28/22 12/28/22 18:59 06:59 18:59 Intake Total 420 1000 118 Balance 420 1000 118 Weight 56.5 kg Intake: Oral 420 1000 118 Other: Voiding Method Toilet Toilet Toilet # Voids 2 1 1 - Exam GENERAL EXAM: Alert, pleasant 52-year-old male, ambulating in his room. Improved, on room air. HEAD: Normocephalic. EYES: Normal reaction of pupils, equal size. NOSE: Clear with pink turbinates. THROAT: No erythema or exudates. NECK: No masses, no JVD. CHEST: No chest wall deformity. LUNGS: Equal air entry with bilateral wheezing, diminished. CVS: S1 and S2 normal with no audible murmur, regular rhythm. ABDOMEN: No hepatosplenomegaly, normal bowel sounds, no guarding or rigidity. SPINE: No scoliosis or deformity SKIN: No rashes CENTRAL NERVOUS SYSTEM: No focal deficits, tone is normal in all 4 extremities. EXTREMITIES: There is no peripheral edema. No clubbing, no cyanosis. Peripheral pulses are intact. - Labs CBC & Chem 7: 12/28/22 08:50 12/28/22 08:50 Labs: Abnormal Lab Results - Last 24 Hours (Table) 12/27/22 12/27/22 12/28/22 Range/Units 16:34 20:06 05:48 WBC (3.8-10.6) k/uL RBC (4.30-5.90) m/uL Hgb (13.0-17.5) gm/dL Hct (39.0-53.0) % MCV (80.0-100.0) fL Plt Count (150-450) k/uL Neutrophils # (1.3-7.7) k/uL Lymphocytes # (1.0-4.8) k/uL Sodium (137-145) mmol/L Chloride (98-107) mmol/L Creatinine (0.66-1.25) mg/dL Glucose (74-99) mg/dL POC Glucose (mg/dL) 153 H 180 H 145 H (70-110) mg/dL 12/28/22 12/28/22 12/28/22 Range/Units 08:50 08:50 11:39 WBC 16.1 H (3.8-10.6) k/uL RBC 3.59 L (4.30-5.90) m/uL Hgb 11.8 L (13.0-17.5) gm/dL Hct 37.1 L (39.0-53.0) % MCV 103.4 H (80.0-100.0) fL Plt Count 800 H (150-450) k/uL Neutrophils # 14.7 H (1.3-7.7) k/uL Lymphocytes # 0.8 L (1.0-4.8) k/uL Sodium 136 L (137-145) mmol/L Chloride 96 L (98-107) mmol/L Creatinine 0.44 L (0.66-1.25) mg/dL Glucose 147 H (74-99) mg/dL POC Glucose (mg/dL) 155 H (70-110) mg/dL Microbiology - Last 24 Hours (Table) 12/25/22 21:20 Gram Stain - Final Sputum Sputum Culture - Final 12/25/22 08:30 Blood Culture - Preliminary Blood 12/25/22 08:45 Blood Culture - Preliminary Blood Assessment and Plan Assessment: Acute hypoxemic respiratory failure secondary to acute community-acquired pneumonia and possible lung cancer. Chest x-ray revealed patchy opacity around the right middle lobe region. CT angiogram ruled out large central or lobar branch pulmonary embolus. Some motion artifact excluded further evaluation of pulmonary embolism. There is a multifocal masslike areas of opacity on the right including a posterior lateral right upper lobe, right infrahilar region, and right midlung. Opacities measuring 4.7 cm in largest may contain some associated inflammatory change. Correlate for multifocal pneumonia or atypical fungal/mycobacterial infections. There is right hilar lymphadenopathy measuring up to 2.9 cm. Cannot exclude neoplastic etiology. Additional consolidation and partial collapse of the right middle lobe. Small right pleural effusion with adjacent atelectasis and/or consolidation. Pro calcitonin 0.74. Continued on Zosyn. Proved and on room air. Leukocytosis secondary to above Right-sided chest wall pain secondary to above Acute exacerbation of chronic obstructive pulmonary disease secondary to above Chronic and ongoing tobacco dependence of 40 years Chronic daily alcohol abuse, currently residing at [facility] History of depression Homelessness, resides in the [place] area Plan: The patient was seen and evaluated Labs and medications reviewed Improved and on room air Continue Zosyn, bronchodilators, steroids Follow-up chest x-ray in a.m. Plan is to return to [facility] to complete treatment possibly tomorrow Again educated regarding the importance of close follow-up with his data network architect in [place] Will need a follow-up CT scan of the chest in outpatient setting We will continue to follow I have personally seen and examined the patient, performed the documentation and the assessment and plan as written. Number of minutes spent on the visit: 10.
[2022-12-28 16:43] LABS: Glucose,Whole Blood 196 mg/dL (70-110)
[2022-12-28 20:07] LABS: Glucose,Whole Blood 163 mg/dL (70-110)
[2022-12-29] MEDS: PIPERACILLIN-TAZOBACTAM 3.375 GM in SODIUM CHLORIDE 0.9% 100 ML IVPB SCH ×2 (04:24→12:19)
[2022-12-29 05:52] LABS: Glucose,Whole Blood 127 mg/dL (70-110)
[2022-12-29] MEDS: methylPREDNISolone SOD SUCCI 125 MG/2 ML VIAL IV SCH ×2 (06:17→12:19)
[2022-12-29] MEDS: MULTIVITAMINS, THERA 1 EACH TAB PO SCH (06:17)
[2022-12-29] MEDS: levETIRAcetam 500 MG TAB PO SCH ×2 (06:17→15:24)
[2022-12-29] MEDS: BUDESONIDE 1 MG/2 ML NEBU INHALATION SCH (08:46)
[2022-12-29] MEDS: IPRATROPIUM-ALBUTEROL 3 ML NEB INHALATION SCH ×2 (08:46→11:46)
[2022-12-29] MEDS: FORMOTEROL FUMARATE 20 MCG/2 ML NEBU INHALATION SCH (08:46)
[2022-12-29] MEDS: THIAMINE 100 MG TAB PO SCH (09:49)
[2022-12-29] MEDS: ACETAMINOPHEN TAB 325 MG TAB PO SCH ×2 (09:49→12:19)
[2022-12-29] MEDS: NICOTINE 21MG/24HR PATCH TRANSDERM SCH (09:49)
[2022-12-29] MEDS: busPIRone HCl 10 MG TAB PO SCH ×2 (09:49→15:24)
[2022-12-29] MEDS: GABAPENTIN 300 MG CAP PO SCH ×2 (09:49→15:24)
[2022-12-29] MEDS: guaiFENesin-DM 100-10MG/5ML 10 ML CUP PO SCH ×2 (09:49→15:24)
[2022-12-29 09:54] VITALS: RESP 18
[2022-12-29 12:03] LABS: Glucose,Whole Blood 185 mg/dL (70-110)
[2022-12-29 12:13] LABS: Alpha 1 Anti-Trypsin 223 mg/dL (90 - 200); Alpha-1-Antitrypsin Phenotype MS
[2022-12-29 12:35] VITALS: BP 135/84; PULSE 79; TEMP 98.1
--- NOTE | 2022-12-29 15:31 | P.PN ---
Subjective Progress Note Date: 12/29/22 This is a 52-year-old male patient with a known history of depression, chronic obstructive pulmonary disease, chronic and ongoing tobacco dependence, daily alcohol abuse who was currently in rehabilitation at [facility] for the past 8 days. He states his last drink was 11/24/2022. He was brought in early this morning for significant shortness of breath, cough and congestion. He was recently at a [facility] 2 weeks ago for pneumonia. He was recently started on Trelegy and albuterol by a applications specialist in [place]. He resides in [place]. He is seen today in consultation in the emergency department. He was initially requiring BiPAP support 02/17 on 40% FiO2. He is currently on 4 L nasal cannula. He is quite dyspneic with minimal exertion. Dyspneic with conversation. He has had some pink tinged sputum. He has significant right sided chest wall pain. Chest x-ray revealed patchy opacity around the right middle lobe region. CT angiogram ruled out large central or lobar branch pulmonary embolus. Portable is some motion artifact excluded further evaluation of pulmonary embolism. There is a multifocal masslike areas of opacity on the right including a posterior lateral right upper lobe, right infrahilar region, and right midlung. Opacities measuring 4.7 cm in largest may contain some associated inflammatory change. Correlate for multifocal pneumonia or atypical fungal/mycobacterial infections. There is right hilar lymphadenopathy measuring up to 2.9 cm. Cannot exclude neoplastic etiology. Additional consolidation and partial collapse of the right middle lobe. Small right pleural effusion with adjacent atelectasis and/or consolidation. White count 16.1. Hemoglobin 14.4. Platelets 800. MCV 103.8. D-dimer 3.28. Sodium 136. Potassium 4.6. Bicarb 25. BUN 7. Creatinine 0.42. Glucose 116. AST 24. ALT 24. Troponin negative 1. ProBNP 327. Influenza screen negative. RSV screen negative. COVID-19 screen negative. The patient is seen today 12/26/2022 in follow-up on the selective care unit. He is doing quite a bit better today compared to yesterday. He is maintaining O2 saturations in the 90s on 4 L/m per nasal cannula. He did continue to utilize BiPAP throughout the night 12/18 on 40% FiO2. He is much less diminished today. Chest x-ray reveals a new small right pleural effusion with persistent right perihilar infiltrate. Within the right upper lobe there is a nodular 2.4 cm density that could represent mass or developing infiltrate. White count 25.5. Hemoglobin 12.0. Platelets 742. Sodium 135. Potassium 4.2. Bicarb 23. BUN 11. Creatinine 0.40. Glucose 224. Pro-calcitonin 0.74. He is continued on DuoNeb inhalations, Pulmicort and Perforomist inhalations, IV Solu-Medrol. NicoDerm patch in place. Remains on the CIWA protocol. Antibiotics in the form of Zosyn. Patient was reevaluated today on 12/27/2022, feeling better breathing easier he is now on room air with O2 sats of 95%. Chest x-ray yesterday showed improvement but nonetheless persistent right perihilar infiltrate and a right upper lobe nodularity 2.4 cm density which could still represent a lung mass. And the patient is very well aware of this, he is to have outpatient follow-up with his applications specialist in [place]. The patient is seen today 12/28/2022 in follow-up on the selective care unit. He is up ambulating in his room. Awake and alert in no acute distress. He is maintaining good O2 saturations in the mid 90s on room air. He's been afebrile. Hemodynamically stable. Blood cultures revealed no growth. Sputum culture revealed no growth. White count 16.1. Hemoglobin 11.8. MCV 103.4. Sodium 136. Potassium 4.5. Bicarb 27. BUN 11. Creatinine 0.44. Glucose 147. He remains on DuoNeb inhalations, Pulmicort and Perforomist inhalations, Solu- Medrol. Antibiotics in the form of Zosyn. NicoDerm patch in place. Remains in the CIWA protocol. He has not required any Ativan. The patient is seen today 12/29/2022 in follow-up on the selective care unit. He sitting up in a chair at the bedside. Awake and alert in no acute distress. Maintaining O2 saturation in the mid 90s on room air. He is afebrile. Hemodynamically stable area blood cultures revealed no growth. Sputum culture revealed no growth. Glucose 185. He is continued on DuoNeb inhalations, Pulmicort and Perforomist inhalations, Solu-Medrol. Antibiotics in the form of Zosyn. NicoDerm patch in place. Objective - Vital Signs Vital signs: Vital Signs Temp 98.1 F 12/29/22 12:00 Pulse 79 12/29/22 12:00 Resp 18 12/29/22 12:00 BP 135/84 12/29/22 12:00 Pulse Ox 96 12/29/22 12:00 FiO2 50 12/25/22 05:29 Intake & Output 12/28/22 12/29/22 12/29/22 18:59 06:59 18:59 Intake Total 236 346 Balance 236 346 Weight 72.7 kg Intake: IV 10 Invasive Line 2 10 Intake, IV Titration 100 Amount Piperacillin-Tazobactam 3 100 .375 gm In Sodium Chloride 0.9% 100 ml @ 25 mls/hr IVPB Q8H [facility] Rx#: [id number] Oral 236 236 Other: Voiding Method Toilet Toilet Toilet # Voids 2 2 - Exam GENERAL EXAM: Alert, 52-year-old male, up in a chair. Improved, on room air. HEAD: Normocephalic. EYES: Normal reaction of pupils, equal size. NOSE: Clear with pink turbinates. THROAT: No erythema or exudates. NECK: No masses, no JVD. CHEST: No chest wall deformity. LUNGS: Equal air entry with bilateral wheezing, diminished. CVS: S1 and S2 normal with no audible murmur, regular rhythm. ABDOMEN: No hepatosplenomegaly, normal bowel sounds, no guarding or rigidity. SPINE: No scoliosis or deformity SKIN: No rashes CENTRAL NERVOUS SYSTEM: No focal deficits, tone is normal in all 4 extremities. EXTREMITIES: There is no peripheral edema. No clubbing, no cyanosis. Peripheral pulses are intact. - Labs CBC & Chem 7: 12/28/22 08:50 12/28/22 08:50 Labs: Abnormal Lab Results - Last 24 Hours (Table) 12/25/22 12/28/22 12/28/22 Range/Units 10:43 16:41 20:05 POC Glucose (mg/dL) 196 H 163 H (70-110) mg/dL [id number] 223 H (90 - 200) mg/dL 10/16/23 10/16/23 Range/Units 05:52 12:01 POC Glucose (mg/dL) 127 H 185 H (70-110) mg/dL [id number] (90 - 200) mg/dL Microbiology - Last 24 Hours (Table) 12/25/22 08:30 Blood Culture - Preliminary Blood 12/25/22 08:45 Blood Culture - Preliminary Blood Assessment and Plan Assessment: Acute hypoxemic respiratory failure secondary to acute community-acquired pneumonia and possible lung cancer. Chest x-ray revealed patchy opacity around the right middle lobe region. CT angiogram ruled out large central or lobar branch pulmonary embolus. Some motion artifact excluded further evaluation of pulmonary embolism. There is a multifocal masslike areas of opacity on the right including a posterior lateral right upper lobe, right infrahilar region, and right midlung. Opacities measuring 4.7 cm in largest may contain some associated inflammatory change. Correlate for multifocal pneumonia or atypical fungal/mycobacterial infections. There is right hilar lymphadenopathy measuring up to 2.9 cm. Cannot exclude neoplastic etiology. Additional consolidation and partial collapse of the right middle lobe. Small right pleural effusion with adjacent atelectasis and/or consolidation. Pro calcitonin 0.74. Continued on Zosyn. Improved and on room air. Leukocytosis secondary to above Right-sided chest wall pain secondary to above Acute exacerbation of chronic obstructive pulmonary disease secondary to above Chronic and ongoing tobacco dependence of 40 years Chronic daily alcohol abuse, currently residing at [facility] History of depression Homelessness, resides in the [facility] Plan: The patient was seen and evaluated Labs and medications reviewed Improved and on room air Patient for discharge from the pulmonary standpoint Trelegy, albuterol HFA, steroid taper Complete two days of Ceftin 500 mg twice a day Plan is to return to [facility] to complete alcohol treatment today Again educated regarding the importance of complete smoking cessation Nicoderm patch in place Will need a follow-up CT scan of the chest in outpatient setting Follow-up with his applications specialist in [place] I have personally seen and examined the patient, performed the documentation and the assessment and plan as written. Number of minutes spent on the visit: 10.
--- NOTE | 2023-01-02 11:35 | CDI ---
Documentation Clarification Form Date: 01/02/2023 10:51:25 AM From: Naida Chairez RN, CCDS Email: [email or web address] Admit Date: 12/25/2022 08:58:00 AM Patient Name: Cara Blank Visit Number: [id number] Discharge Date: 12/29/2022 03:55:00 PM ATTENTION: The Clinical Documentation Specialists (CDI) and [facility] Coding Staff appreciate your assistance in clarifying documentation. Please respond to the clarification below the line at the bottom and electronically sign. The CDI & [facility] Coding staff will review the response and follow-up if needed. Please note: Queries are made part of the Legal Health Record. If you have any questions, please contact the author of this message via ITS. Dr. Farrell E Sheet The patient had pneumonia, leukocytosis and tachycardia. Based on this information and the findings below, is there an additional diagnosis that is clinically appropriate for this patient? History/Risk Factors: COPD, nicotine dependence, seizure, anxiety and depression. Patient was recently discharged from [facility] for right pneumonia and he was supposed to follow-up at [facility] for alcohol withdrawal. Presented with dyspnea. Admitted with pneumonia and COPD exacerbation. Clinical Indicators: H&P: "He was tachycardic 123 and short of breath on admission. Leukocytosis of 16.1. Possible right middle lobe pneumonia." Pulmonary consult: "Acute hypoxemic respiratory failure secondary to acute community-acquired pneumonia and possible lung cancer. Leukocytosis secondary to above." 12/25 CXR: Patchy opacity along the right middle lobe region. Correlate for pneumonia. 12/25-12/28 WBC: 16.1-25.5-16.1 12/25 Procalcitonin: 0.74 12/25 Vital signs: HR [id number]; RR 65-26-93-26-18 Treatment: Antibiotics: IV Azithromycin 500mg x1 on 12/25; IV Zosyn 3.375gm x1 on 12/25; IV Zosyn 3.375gm Q8H 12/25-12/29 IV Bolus: 1L 0.9 NS IV bolus x2 on 12/25 then 130mL/hr 12/25-12/26 Is there an additional diagnosis that is clinically appropriate for this patient? [ ] Sepsis, present on admission [ ] Other, please specify [ ] Unable to determine SIRS Criteria: 2 or more of the following may indicate SIRS Temperature < 96.8F (36C) or > 101.0F (38.3C) Heart Rate > 90 bpm Respiratory Rate > 20 breaths/min or PaCO2 < 32 mmHg White Blood Cell Count > 12,000 or < 4,000 cells/mm3 or > 10% bands dx: Sepsis, present on admission, improved upon discharge JERMAINED
--- NOTE | 2023-01-07 01:36 | P.DS ---
Providers Date of admission: 12/25/22 08:58 Attending physician: Bud Aponte MD Consults: 12/25/22 07:35 Consult Physician Routine Consulting Provider: Amparo Tucker Consult Reason/Comments: copd, pneumonia Do you want consulting provider notified?: Yes Primary care physician: Physician Nonstaff Hospital Course: Date of service: 12/29/2022 Diagnoses: COPD with acute exacerbation Right middle lobe pneumonia and masslike opacity in the right midlung 4.7 cm with possible cavitary lesion + on right upper lobe opacity 2.3 cm + right infrahilar masslike opacity 3.1 cm mild acute hypoxic respiratory failure nicotine dependence history of seizure anxiety and depression Hospital course: This is a pleasant 52 years old male with past medical history of COPD, nicotine dependence, seizure, anxiety and depression Patient was recently discharged from [facility] for right pneumonia and he supposed to follow-up [place] for alcohol withdrawal. Patient admits to drink 1 pint of liquor at 6-12 tall beers a day. Also he smokes about 6 cigarettes per day and was consulted liquids and he agrees any was nicotine patch Pt. comes from [place]- sober x30 days. Hx of COPD. Pt. c/o increased SOB x1 day. Patient found to have acute COPD exacerbation and right middle lobe pneumonia and possible masslike opacity. Pulmonary was following. Patient was treated with IV solumedrol, Zosyn. Also it was on CIWA protocol and thiamine. Patient's symptoms significantly improved. Patient states his wants to be discharged and follow-up outpatient. Patient denies chest pain. Cough is improving. He tolerated well. Patient denies no symptoms. No fever. Patient was cleared for discharge by the pulmonary team. Problems and management plan were discussed with the patient and he verbalized understanding and acceptance Patient was found stable and can be discharged home in guarded prognosis however he needs follow-up as an outpatient. Patient was instructed to follow up with PCP within one week and patient agrees Patient was instructed to follow up with pulmonary service Dr. Tucker as an outpatient and patient agrees Physical exam Gen: patient is a AAOx3, no distress CVS: S1-S2, RRR, no murmur Lungs: B/L CTA, no wheezing. notachypnea Abdomen: soft, no distention, no tenderness, positive bowel sounds Extremity: no leg edema or induration Time spent more than 35 minutes Plan - Discharge Summary Discharge Rx Participant: No New Discharge Prescriptions: New RX: Thiamine [Vitamin B-1] 100 mg PO DAILY 30 Days #30 tab Continue RX: Acetaminophen Tab [Tylenol] 650 mg PO QID RX: Nicotine 21Mg/24Hr Patch [Habitrol] 1 patch TRANSDERM DAILY@0600 RX: Multivitamins, Thera [Multivitamin (formulary)] 1 tab PO DAILY@0600 RX: Chlorpheniramine Maleate [Chlor-Trimeton] 4 mg PO Q4H PRN PRN Reason: RUNNY NOSE/ALLERGIES RX: busPIRone HCl [Buspar] 10 mg PO TID 10 Days #30 tab RX: Fluticasone/Umeclidin/Vilanter [Trelegy Ellipta 100-62.5-25] 1 puff INHALATION RT-DAILY@0600 #1 each RX: Albuterol Sulfate [Ventolin HFA] 1 puff INHALATION RT-DAILY@0600 #1 each Thera M Iron 9 mg PO DAILY@0600 RX: guaiFENesin [guaiFENesin Oral Solution] 200 mg PO Q4H PRN PRN Reason: CHEST CONGESTION RX: levETIRAcetam [Keppra] 1,000 mg PO BID@0600,1600 30 Days #60 tab RX: Escitalopram [Lexapro] 10 mg PO DAILY@0600 10 Days #10 tab Discontinued Albuterol Nebulized [Ventolin Nebulized] 2.5 mg INHALATION RT-Q4H Azithromycin [Zithromax Z Pack] 1 tab PO DIRECTED No Action traZODone HCL [Desyrel] 100 mg PO HS@2000 Ibuprofen [Motrin] 600 mg PO TID@0600,1130,2100 methylPREDNISolone Dose Pack [Medrol Dose Pack] See Taper PO DIRECTED cefUROXime axetiL [Ceftin] 500 mg PO BID@0630,1630 Calcium/Mag/Zinc/D3 1 tab PO TID Albuterol Nebulized [Ventolin Nebulized] 2.5 mg INHALATION RT-Q4H PRN PRN Reason: Shortness Of Breath Discharge Medication List Ibuprofen [Motrin] 600 mg PO TID@0600,1130,2100 12/25/22 [History] RX: Acetaminophen Tab [Tylenol] 650 mg PO QID 12/25/22 [History] RX: Chlorpheniramine Maleate [Chlor-Trimeton] 4 mg PO Q4H PRN 12/25/22 [History] RX: Multivitamins, Thera [Multivitamin (formulary)] 1 tab PO DAILY@0600 12/25/22 [History] RX: Nicotine 21Mg/24Hr Patch [Habitrol] 1 patch TRANSDERM DAILY@0600 12/25/22 [History] RX: guaiFENesin [guaiFENesin Oral Solution] 200 mg PO Q4H PRN 12/25/22 [History] Thera M Iron 9 mg PO DAILY@0600 12/25/22 [History] traZODone HCL [Desyrel] 100 mg PO HS@199912/25/22 [History] RX: Albuterol Sulfate [Ventolin HFA] 1 puff INHALATION RT-DAILY@0600 #1 each 12/29/22 [Rx] RX: Escitalopram [Lexapro] 10 mg PO DAILY@0600 10 Days #10 tab 12/29/22 [Rx] RX: Fluticasone/Umeclidin/Vilanter [Trelegy Ellipta 100-62.5-25] 1 puff INHALATION RT-DAILY@0600 #1 each 12/29/22 [Rx] RX: Thiamine [Vitamin B-1] 100 mg PO DAILY 30 Days #30 tab 12/29/22 [Rx] RX: busPIRone HCl [Buspar] 10 mg PO TID 10 Days #30 tab 12/29/22 [Rx] RX: levETIRAcetam [Keppra] 1,000 mg PO BID@0600,1600 30 Days #60 tab 12/29/22 [Rx] Albuterol Nebulized [Ventolin Nebulized] 2.5 mg INHALATION RT-Q4H PRN 12/31/22 [History] Calcium/Mag/Zinc/D3 1 tab PO TID 12/31/22 [History] cefUROXime axetiL [Ceftin] 500 mg PO BID@0630,1630 12/31/22 [History] methylPREDNISolone Dose Pack [Medrol Dose Pack] See Taper PO DIRECTED 12/31/22 [History] Follow up Appointment(s)/Referral(s): Amparo Tucker MD [STAFF PHYSICIAN] - 01/08/23 1:00 pm (appointment with Dr. Tucker ) Nonstaff,Physician [Primary Care Provider] - 1-2 days (please call and make appointment ) Patient Instructions/Handouts: COPD (Chronic Obstructive Pulmonary Disease) (DC), Community Acquired Pneumonia (DC) Activity/Diet/Wound Care/Special Instructions: heart healthy diet activity is as tolerated please call your health insurance provider to find a nearby a primary care doctor and make an appointment in one week after discharge Discharge/Stand Alone Forms: AA Meetings [facility], Community Resources, Outpatient Counseling, In Substance Abuse Facilities, Personal Oncology Account Specialist Discharge Disposition: HOME SELF-CARE
== END 2022-12-29 15:55 | disposition home or self-care (01) | DRG 720 ==
LOC: EC 04:35 → 3SCARD 08:58
PROVIDERS: ADMIT Internal Medicine; ATTEND Internal Medicine
PROC: HZ2ZZZZ Detoxification Services for Substance Abuse Treatment (ICD-10-PCS; principal; 2022-12-25)
DX: A41.9 Sepsis, unspecified organism (principal); J18.9 Pneumonia, unspecified organism; E83.42 Hypomagnesemia; J44.0 Chronic obstructive pulmonary disease with (acute) lower respiratory infection; J44.1 Chronic obstructive pulmonary disease with (acute) exacerbation; J96.01 Acute respiratory failure with hypoxia; C34.10 Malignant neoplasm of upper lobe, unspecified bronchus or lung; Z20.822 Contact with and (suspected) exposure to COVID-19; F17.210 Nicotine dependence, cigarettes, uncomplicated; F32.A Depression, unspecified; R00.0 Tachycardia, unspecified; F41.9 Anxiety disorder, unspecified; G47.00 Insomnia, unspecified; F10.20 Alcohol dependence, uncomplicated; Z79.899 Other long term (current) drug therapy; Z59.00 Homelessness unspecified; Z71.41 Alcohol abuse counseling and surveillance of alcoholic; Z71.6 Tobacco abuse counseling
CPT/HCPCS: 36415; 71045; 71046; 71275; 80048; 80053; 82103; 82104; 82803; 83605; 83735; 83880; 84145; 84484; 85025; 85379; 85610; 85730; 87040; 87070; 87205; 87449; 87636; 93005; 94640; 94760; 96361; 96365; 96367; 96372; 96375; 96376; 99291

== ENCOUNTER 2022-12-31 03:10 | Inpatient (IN) | payer OTHER ==
--- NOTE | 2022-12-31 03:30 | ED ---
General Adult HPI - General Chief complaint: Shortness of Breath Time Seen by Provider: 12/31/22 03:16 Source: patient, EMS Mode of arrival: EMS Limitations: no limitations - History of Present Illness Initial comments: Dictation was produced using [employer] dictation software. please excuse any grammatical, word or spelling errors. Chief Complaint: 52-year-old male with alleged recently diagnosed pneumonia presents to emergency department after inhalation of bleach causes shortness of breath History of Present Illness: Is 52-year-old male from the local drug and detox facility. He was in his usual state of health when he just finished one of his meetings. He went upstairs and someone was cleaning. He took a breath of what he describes as. Bleach. Shortly after he began to experience some shortness of breath. Patient arrived by EMS. He had normal vitals. The ROS documented in this emergency department record has been reviewed and confirmed by me. Those systems with pertinent positive or negative responses have been documented in the HPI. All other systems are other negative and/or noncontributory. - Related Data Home Medications Medication Instructions Recorded Confirmed Acetaminophen Tab [Tylenol] 650 mg PO QID 12/25/22 12/25/22 Chlorpheniramine Maleate 4 mg PO Q4H PRN 12/25/22 12/25/22 [Chlor-Trimeton] Ibuprofen [Motrin] 600 mg PO TID@0600,1130,2100 12/25/22 12/25/22 Multivitamins, Thera [Multivitamin 1 tab PO DAILY@0600 12/25/22 12/25/22 (formulary)] Nicotine 21Mg/24Hr Patch [Habitrol] 1 patch TRANSDERM DAILY@0600 12/25/22 12/25/22 Thera M Iron 9 mg PO DAILY@0600 12/25/22 12/25/22 guaiFENesin [guaiFENesin Oral 200 mg PO Q4H PRN 12/25/22 12/25/22 Solution] traZODone HCL [Desyrel] 100 mg PO HS@199912/25/22 12/25/22 Previous Rx's Medication Instructions Recorded Albuterol Sulfate [Ventolin HFA] 1 puff INHALATION RT-DAILY@0600 #1 12/29/22 each Escitalopram [Lexapro] 10 mg PO DAILY@0600 10 Days #10 tab 12/29/22 Fluticasone/Umeclidin/Vilanter 1 puff INHALATION RT-DAILY@0600 #1 12/29/22 [Trelegy Ellipta 100-62.5-25] each Thiamine [Vitamin B-1] 100 mg PO DAILY 30 Days #30 tab 12/29/22 busPIRone HCl [Buspar] 10 mg PO TID 10 Days #30 tab 12/29/22 cefUROXime axetiL [Ceftin] 500 mg PO BID 5 Days #10 tab 12/29/22 diphenhydrAMINE HCL [Benadryl] 25 mg PO HS 5 Days #5 tab 12/29/22 levETIRAcetam [Keppra] 1,000 mg PO BID@0600,1600 30 Days 12/29/22 #60 tab methylPREDNISolone Dose Pack 4 mg PO DIRECTED #21 tab 12/29/22 [Medrol Dose Pack] Allergies Allergy/AdvReac Type Severity Reaction Status Date / Time No Known Allergies Allergy Verified 12/25/22 08:48 Review of Systems ROS Statement: Those systems with pertinent positive or pertinent negative responses have been documented in the HPI. ROS Other: All systems not noted in ROS Statement are negative. Past Medical History Past Medical History: COPD, Seizure Disorder Additional Past Medical History / Comment(s): psoriasis, right elbow surgery r/t mrsa History of Any Multi-Drug Resistant Organisms: MRSA Date of last positivie culture/infection: 2000 MDRO Source:: cut and swam in [place] Past Surgical History: Unable to Obtain Additional Past Surgical History / Comment(s): Right elbow surgery. Past Anesthesia/Blood Transfusion Reactions: No Reported Reaction Past Psychological History: No Psychological Hx Reported Smoking Status: Current every day smoker Past Alcohol Use History: Abuse Past Drug Use History: None Reported General Exam - General Exam Comments Initial Comments: PHYSICAL EXAM: General Impression: Alert and oriented x3, not in acute distress HEENT: Normocephalic atraumatic, extra-ocular movements intact, pupils equal and reactive to light bilaterally, mucous membranes moist. Cardiovascular: Heart regular rate and rhythm Chest: Able to complete full sentences, no retractions, no tachypnea, lungs [place] ar to auscultation bilaterally Abdomen: abdomen soft, non-tender, non-distended, no organomegaly Musculoskeletal: Pulses present and equal in all extremities, no peripheral edema Motor: no focal deficits noted Neurological: CN II-XII grossly intact, no focal motor or sensory deficits noted Skin: Intact with no visualized rashes Psych: Normal affect and mood Limitations: no limitations Course Vital Signs 12/31/22 12/31/22 12/31/22 03:17 03:25 04:54 Temperature 98.6 F 98.7 F Pulse Rate 142 H 114 H 91 Respiratory 26 H 22 18 Rate Blood Pressure 153/89 111/63 O2 Sat by Pulse 96 94 L 92 L Oximetry 12/31/22 06:23 Temperature Pulse Rate 107 H Respiratory 16 Rate Blood Pressure 118/72 O2 Sat by Pulse 94 L Oximetry Medical Decision Making - Medical Decision Making Was pt. sent in by a medical professional or institution (, PA, CARDIAC CATH RN, urgent care, hospital, or [place] [facility] care facility...) When possible be specific @ -No Did you speak to anyone other than the patient for history (EMS, parent, family, police, friend...)? What history was obtained from this source @ -No Did you review nursing and triage notes (agree or disagree)? Why? @ -I reviewed and agree with nursing and triage notes Were old charts reviewed (outside hosp., previous admission, EMS record, old EKG, old radiological studies, urgent care reports/EKG's, [place] health care facility records)? Report findings @ -No old charts were reviewed Differential Diagnosis (chest pain, altered mental status, abdominal pain women, abdominal pain men, vaginal bleeding, musculoskeletal, weakness, fever, dyspnea, syncope, headache, dizziness, GI bleed, back pain, seizure, CVA, palpatations, mental health)? @ -Differential Dyspnea: Coronary syndrome, arrhythmia, tamponade, asthma, COPD, pulmonary embolism, pneumonia, pneumothorax, pulmonary effusion, anaphylaxis, diabetic ketoacidosis, flailed chest, pulmonary contusion, diaphragmatic rupture, anemia, neuromuscular, this is not meant to be an all-inclusive list. EKG interpreted by me (3pts min.). @ -None done X-rays interpreted by me (1pt min.). @ -Chest x-ray read demonstrate worsening right mid and lower lung airspace disease CT interpreted by me (1pt min.). @ -None done U/S interpreted by me (1pt. min.). @ -None done What testing was considered but not performed or refused? (CT, X-rays, U/S, labs)? Why? @ -None What meds were considered but not given or refused? Why? @ -None Did you discuss the management of the patient with other professionals (professionals i.e. , PA, CARDIAC CATH RN, lab, RT, psych nurse, case management social worker, aeronautical test engineer, teacher, global chief creative officer, piano case and bench assembler)? Give summary @ -Discussed with hospitalist for admission. Was smoking cessation discussed for >3mins.? @ -No Was critical care preformed (if so, how long)? @ -No Were there social determinants of health that impacted care today? How? (Homelessness, low income, unemployed, alcoholism, drug addiction, transportation, low edu. Level, literacy, decrease access to med. care, half-way, rehab)? @ -No Was there de-escalation of care discussed even if they declined (Discuss DNR or withdrawal of care, Hospice)? DNR status @ -No What co-morbidities impacted this encounter? (DM, HTN, Smoking, COPD, CAD, Cancer, CVA, ARF, Chemo, Hep., AIDS, mental health diagnosis, sleep apnea, morbid obesity)? @ -None Was patient admitted / discharged? Hospital course, mention meds given and route, prescriptions, significant lab abnormalities, going to OR and other pertinent info. @ -2-year-old male recently seen in the hospital for shortness of breath. He was diagnosed with pneumonia versus new lung mass. He was discharged at that time with plans for outpatient workup. Vital signs upon arrival shows hypoxia. Patient is oxygen dependent tachypneic. Initially tachycardic. X-ray shows worsening findings. Labs are unremarkable. Patient be readmitted with consultation pulmonology. Undiagnosed new problem with uncertain prognosis? @ -No Drug Therapy requiring intensive monitoring for toxicity (Heparin, Nitro, Insul in, Cardizem)? @ -No Were any procedures done? @ -No Diagnosis/symptom? Acute, or Chronic, or Acute on Chronic? Uncomplicated (without systemic symptoms) or Complicated (systemic symptoms)? @ - respiratory failure Side effects of treatment? @ -No Exacerbation, Progression, or Severe Exacerbation? @ -No Poses a threat to life or bodily function? How? (Chest pain, [place], [place], pneumonia, PE, COPD, DKA, ARF, appy, cholecystitis, CVA, Diverticulitis, Homicidal, Suicidal, threat to staff... and all critical care pts) @ -yes - Lab Data Result diagrams: 12/31/22 04:47 12/31/22 04:47 Lab Results 12/31/22 12/31/22 Range/Units 04:47 04:47 WBC 31.5 H (3.8-10.6) k/uL RBC 3.88 L (4.30-5.90) m/uL Hgb 13.0 (13.0-17.5) gm/dL Hct 39.6 (39.0-53.0) % MCV 101.9 H (80.0-100.0) fL MCH 33.4 (25.0-35.0) pg MCHC 32.8 (31.0-37.0) g/dL RDW 13.2 (11.5-15.5) % Plt Count 900 H (150-450) k/uL MPV 6.9 Macrocytosis Slight Sodium 133 L (137-145) mmol/L Potassium 4.3 (3.5-5.1) mmol/L Chloride 99 (98-107) mmol/L Carbon Dioxide 28 (22-30) mmol/L Anion Gap 6 mmol/L BUN 15 (9-20) mg/dL Creatinine 0.39 L (0.66-1.25) mg/dL Est GFR (CKD-EPI)AfAm >90 (>60 ml/min/1.73 sqM) Est GFR (CKD-EPI)NonAf >90 (>60 ml/min/1.73 sqM) Glucose 97 (74-99) mg/dL Calcium 8.9 (8.4-10.2) mg/dL Disposition Clinical Impression: Respiratory failure Disposition: ADMITTED IP TO THIS [facility] Condition: Serious Referrals: None,Stated [Primary Care Provider] - 1-2 days Decision Time: 07:02
[2022-12-31 05:04] LABS: HCT 39.6 % (39.0-53.0); MCH 33.4 pg (25.0-35.0); MCHC 32.8 g/dL (31.0-37.0); MCV 101.9 fL (80.0-100.0); Macrocytosis Slight; Mean Platelet Volume 6.9; Platelet Count 900 k/uL (150-450); RBC 3.88 m/uL (4.30-5.90); RDW 13.2 % (11.5-15.5); WBC 31.5 k/uL (3.8-10.6)
[2022-12-31 05:07] LABS: African American GFR (CKD) >90 (>60 ml/min/1.73 sqM); Anion Gap 6 mmol/L; Blood Urea Nitrogen 15 mg/dL (9-20); Calcium 8.9 mg/dL (8.4-10.2); Carbon Dioxide 28 mmol/L (22-30); Chloride 99 mmol/L (98-107); Glucose 97 mg/dL (74-99); Non-African American GFR(CKD) >90 (>60 ml/min/1.73 sqM); Sodium 133 mmol/L (137-145)
[2022-12-31 05:12] LABS: Potassium 4.3 mmol/L (3.5-5.1)
--- NOTE | 2022-12-31 06:36 | XR ---
EXAM: XR Chest, 2 Views CLINICAL HISTORY: ITS.REASON XR Reason: dyspnea after bleach fumes inhalation TECHNIQUE: Frontal and lateral views of the chest. COMPARISON: 12/26/22 FINDINGS: Lungs: Increasing opacity in the right mid to lower lung with blunting of the costophrenic angle, likely combination of increasing effusion and worsening airspace disease/atelectasis. Faint nodular opacity projecting over the right upper lung appear slightly decreased in conspicuity. Streaky density in the left lung base, probable atelectasis. Pleural space: See above. Heart: Unremarkable. No cardiomegaly. Mediastinum: Unremarkable. Bones/joints: Unremarkable. Vasculature: Slight unfolding of the thoracic aorta. IMPRESSION: 1. Worsening right mid to lower lung airspace disease/atelectasis and increase in effusion. 2. Slight decreased nodular opacity in the right upper lung. 3. Follow-up to clearing recommended to exclude underlying lesions/abnormality
[2022-12-31] MEDS ORDERED: NALOXONE 0.4 MG/ML 1 ML VIAL IV PRN (06:54)
[2022-12-31] MEDS: SODIUM CHLORIDE 0.9% 1,000 ML IV SCH ×4 (07:43→21:41)
[2022-12-31 07:48] LABS: Band Neutrophils % 1 %; Eosinophils # (M) 0.95 k/uL (0-0.7); Lymphocytes # (M) 2.52 k/uL (1.0-4.8); Monocytes # (M) 0.95 k/uL (0-1.0); Neutrophils % (M) 85 %; Nucleated Red Blood Cells 0 /100 WBC (0-0); Total Cells Counted 100
[2022-12-31] MEDS ORDERED: IPRATROPIUM-ALBUTEROL 3 ML NEB INHALATION PRN (08:57)
[2022-12-31] MEDS: PIPERACILLIN-TAZOBACTAM 3.375 GM in SODIUM CHLORIDE 0.9% 100 ML IVPB SCH ×2 (09:02→16:30)
[2022-12-31] MEDS: predniSONE 10 MG TAB PO SCH (09:18)
[2022-12-31] MEDS: IPRATROPIUM-ALBUTEROL 3 ML NEB INHALATION SCH ×3 (11:06→21:07)
[2022-12-31] MEDS ORDERED: VANCOMYCIN IV PER PHARMACY 1 EACH MISC MISCELLANE PRN (11:33)
[2022-12-31] MEDS ORDERED: ALBUTEROL NEBULIZED 2.5 MG/3 ML INHALATION PRN (11:34)
[2022-12-31] MEDS ORDERED: HYDROcodone/APAP 7.5-325MG 1 EACH TAB PO PRN (11:35)
--- NOTE | 2022-12-31 11:43 | P.HPIM ---
History of Present Illness Patient.52-year-old male came in with comments of shortness of breath does have history of COPD quit smoking about a week ago patient is a drug rehabitation program at this time. Chest x-ray was done which showed increasing infiltrate on the right side patient was on third-generation supposed for him for pneumonia as an outpatient. Patient does have wheezing which appears to be more of stridor. Patient does have oral thrush on exam. Patient is oxygen usually doesn't use any oxygen at home. Pro-calcitonin was ordered patient has leukocytosis with WBC count of 30,000 although patient is on steroids as an outpatient. Patient believes inhalational bleach she at the facility may have caused his COPD exacerbation. Patient is presently nicotine patches. Patient doesn't have any fever REVIEW OF SYSTEMS: CONSTITUTIONAL: No fever, no malaise, no fatigue. HEENT: No recent visual problems or hearing problems. Denied any sore throat. CARDIOVASCULAR: No chest pain, orthopnea, PND, no palpitations, no syncope. PULMONARY: no cough, no hemoptysis. GASTROINTESTINAL: No diarrhea, no nausea, no vomiting, no abdominal pain. NEUROLOGICAL: No headaches, no weakness, no numbness. HEMATOLOGICAL: Denies any bleeding or petechiae. GENITOURINARY: Denies any burning micturition, frequency, or urgency. MUSCULOSKELETAL/RHEUMATOLOGICAL: Denies any joint pain, swelling, or any muscle pain. ENDOCRINE: Denies any polyuria or polydipsia. The rest of the 14-point review of systems is negative. PHYSICAL EXAMINATION: GENERAL: The patient is alert and oriented x3, not in any acute distress. Well developed, well nourished. HEENT: Pupils are round and equally reacting to light. EOMI. No scleral icterus. No conjunctival pallor. Normocephalic, atraumatic. No pharyngeal erythema. No thyromegaly. CARDIOVASCULAR: S1 and S2 present. No murmurs, rubs, or gallops. PULMONARY: Chest is clear to auscultation,or crackles. Does have crackles in the posterior lower lung riggins and expiratory wheezing on exam ABDOMEN: Soft, nontender, nondistended, normoactive bowel sounds. No palpable organomegaly. MUSCULOSKELETAL: No joint swelling or deformity. EXTREMITIES: No cyanosis, clubbing, or pedal edema. NEUROLOGICAL: Gross neurological examination did not reveal any focal deficits. SKIN: No rashes. Assessment and plan -COPD with acute exacerbation patient is on oral steroids and continued continue with inhalational treatments. -Possibility of worsening pneumonia sputum cultures will be obtained patient the will be switched to Zosyn and vancomycin from a dose sputum cultures will be up and focused on will be obtained. -Seizure disorder and patient will be resumed on home seizure medications -Alcohol abuse and nicotine abuse patient is presently not drug rehabitation program DVT prophylaxis: Lovenox Past Medical History Past Medical History: COPD, Seizure Disorder Additional Past Medical History / Comment(s): psoriasis, right elbow surgery r/t mrsa History of Any Multi-Drug Resistant Organisms: MRSA Date of last positivie culture/infection: 2000 MDRO Source:: cut and swam in [place] Past Surgical History: Unable to Obtain Additional Past Surgical History / Comment(s): Right elbow surgery. Past Anesthesia/Blood Transfusion Reactions: No Reported Reaction Past Psychological History: No Psychological Hx Reported Smoking Status: Current every day smoker Past Alcohol Use History: Abuse, Daily, Heavy Additional Past Alcohol Use History / Comment(s): Heavy daily drinker. Pint plus 5-12 beers daily. Past Drug Use History: None Reported - Past Family History Mother Family Medical History: COPD Additional Family Medical History / Comment(s): Pancreatic cancer Father Family Medical History: No Reported History Additional Family Medical History / Comment(s): at age 47 from accidental . Medications and Allergies Home Medications Medication Instructions Recorded Confirmed Type Acetaminophen Tab [Tylenol] 650 mg PO QID 12/25/22 12/31/22 History Chlorpheniramine Maleate 4 mg PO Q4H PRN 12/25/22 12/31/22 History [Chlor-Trimeton] Ibuprofen [Motrin] 600 mg PO TID@0600,1130,2100 12/25/22 12/31/22 History Multivitamins, Thera [Multivitamin 1 tab PO DAILY@0600 12/25/22 12/31/22 History (formulary)] Nicotine 21Mg/24Hr Patch [Habitrol] 1 patch TRANSDERM DAILY@0600 12/25/22 12/31/22 History Thera M Iron 9 mg PO DAILY@0600 12/25/22 12/31/22 History guaiFENesin [guaiFENesin Oral 200 mg PO Q4H PRN 12/25/22 12/31/22 History Solution] traZODone HCL [Desyrel] 100 mg PO HS@199912/25/22 12/31/22 History Albuterol Sulfate [Ventolin HFA] 1 puff INHALATION RT-DAILY@0600 #1 12/29/22 12/31/22 Rx each Escitalopram [Lexapro] 10 mg PO DAILY@0600 10 Days #10 tab 12/29/22 12/31/22 Rx Fluticasone/Umeclidin/Vilanter 1 puff INHALATION RT-DAILY@0600 #1 12/29/22 12/31/22 Rx [Trelegy Ellipta 100-62.5-25] each Thiamine [Vitamin B-1] 100 mg PO DAILY 30 Days #30 tab 12/29/22 12/31/22 Rx busPIRone HCl [Buspar] 10 mg PO TID 10 Days #30 tab 12/29/22 12/31/22 Rx levETIRAcetam [Keppra] 1,000 mg PO BID@0600,1600 30 Days 12/29/22 12/31/22 Rx #60 tab Albuterol Nebulized [Ventolin 2.5 mg INHALATION RT-Q4H PRN 12/31/22 12/31/22 History Nebulized] Calcium/Mag/Zinc/D3 1 tab PO TID 12/31/22 12/31/22 History cefUROXime axetiL [Ceftin] 500 mg PO BID@0630,1630 12/31/22 12/31/22 History methylPREDNISolone Dose Pack See Taper PO DIRECTED 12/31/22 12/31/22 History [Medrol Dose Pack] Allergies Allergy/AdvReac Type Severity Reaction Status Date / Time No Known Allergies Allergy Verified 12/31/22 08:20 Physical Exam Vitals: Vital Signs Temp Pulse Pulse Resp BP BP Pulse Ox 12/31/22 11:15 119 H 12/31/22 11:08 119 H 12/31/22 11:03 98 F 119 H 18 126/73 94 L 12/31/22 08:33 98.1 F 110 H 22 135/90 96 12/31/22 07:46 97 12/31/22 07:19 20 94 L 12/31/22 06:23 107 H 16 118/72 94 L 12/31/22 04:54 98.7 F 91 18 111/63 92 L 12/31/22 03:25 98.6 F 114 H 22 94 L 12/31/22 03:17 142 H 26 H 153/89 96 Intake and Output 12/30/22 12/31/22 12/31/22 22:59 06:59 14:59 Other: Weight 77.111 kg 77.111 kg Results CBC & Chem 7: 12/31/22 04:47 12/31/22 04:47 Labs: Abnormal Lab Results - Last 24 Hours (Table) 12/31/22 12/31/22 Range/Units 04:47 04:47 WBC 31.5 H (3.8-10.6) k/uL RBC 3.88 L (4.30-5.90) m/uL MCV 101.9 H (80.0-100.0) fL Plt Count 900 H (150-450) k/uL Neutrophils # (Manual) 27.00 H (1.3-7.7) k/uL Eosinophils # (Manual) 0.95 H (0-0.7) k/uL Sodium 133 L (137-145) mmol/L Creatinine 0.39 L (0.66-1.25) mg/dL Thrombosis Risk Factor Assmnt - Choose All That Apply Each Factor Represents 1 point: Abnormal pulmonary function (COPD), Age 41-60 years Thrombosis Risk Factor Assessment Total Risk Factor Score: 2 Thrombosis Risk Factor Assessment Level: Low Risk
[2022-12-31] MEDS: NYSTATIN 100,000 UNIT/ML SUSP 500,000 UNIT/5 ML CUP PO SCH ×3 (12:20→21:30)
[2022-12-31] MEDS: ACETAMINOPHEN TAB 325 MG TAB PO SCH ×3 (12:20→21:40)
--- NOTE | 2022-12-31 12:36 | P.CNPUL ---
History of Present Illness Consult date: 12/31/22 Requesting physician: Bud Aponte Reason for consult: dyspnea, cough, COPD, hypoxemia, pneumonia, abnormal CXR/CT Chief complaint: Shortness of breath. History of present illness: Pulmonary consult dated 12/31/2022. 52-year-old male who was recently discharged from this hospital, with a COPD exacerbation. The patient was discharged, and went back to [place], because of his addiction. The patient states that apparently he smelled bleach at [place], and he became very short of breath. In addition, he complained of chest tightness, wheezing, coughing, and phlegm production. He was seen in the emergency department on December 31 at 3:00 in the morning. He is seen this morning, in the emergency department, room 30. He is on 3 L of oxygen. He's not receiving any IV fluids. His chest x-ray revealed a possible right lower lobe infiltrate. He is profoundly short of breath, which is why he came back in. White count 31.5, hemoglobin 13, hematocrit 39.6, and platelet count 900,000. Sodium 133, potassium 4.3, chlorides 99, CO2 28, BUN 15, creatinine 0.39. Studies for influenza, RSV, and coronavirus, are all negative. Chest x- ray shows worsening right lower lung airspace opacities/atelectasis, with a small effusion. Review of Systems REVIEW OF SYSTEMS: CONSTITUTIONAL: [Negative.] NEUROLOGIC: [ Negative.] HEENT: [ Negative.] CARDIAC: [Negative.] PULMONARY: Shortness of breath, cough, chest congestion, chest tightness, and minimal phlegm production. GI: [Negative.] : [Negative.] RHEUMATOLOGIC: [ Negative.] IMMUNOLOGIC: [ Negative.] ENDOCRINE: [Negative. ] DERMATOLOGIC: [Negative.] Past Medical History Past Medical History: COPD, Seizure Disorder Additional Past Medical History / Comment(s): psoriasis, right elbow surgery r/t mrsa History of Any Multi-Drug Resistant Organisms: MRSA Date of last positivie culture/infection: 2000 MDRO Source:: cut and swam in [place] Past Surgical History: Unable to Obtain Additional Past Surgical History / Comment(s): Right elbow surgery. Past Anesthesia/Blood Transfusion Reactions: No Reported Reaction Past Psychological History: No Psychological Hx Reported Smoking Status: Current every day smoker Past Alcohol Use History: Abuse, Daily, Heavy Additional Past Alcohol Use History / Comment(s): Heavy daily drinker. Pint plus 5-12 beers daily. Past Drug Use History: None Reported - Past Family History Mother Family Medical History: COPD Additional Family Medical History / Comment(s): Pancreatic cancer Father Family Medical History: No Reported History Additional Family Medical History / Comment(s): at age 47 from accidental . Medications and Allergies Home Medications Medication Instructions Recorded Confirmed Type Acetaminophen Tab [Tylenol] 650 mg PO QID 12/25/22 12/31/22 History Chlorpheniramine Maleate 4 mg PO Q4H PRN 12/25/22 12/31/22 History [Chlor-Trimeton] Ibuprofen [Motrin] 600 mg PO TID@0600,1130,2100 12/25/22 12/31/22 History Multivitamins, Thera [Multivitamin 1 tab PO DAILY@0600 12/25/22 12/31/22 History (formulary)] Nicotine 21Mg/24Hr Patch [Habitrol] 1 patch TRANSDERM DAILY@0600 12/25/22 1 History Thera M Iron 9 mg PO DAILY@0600 12/25/22 12/31/22 History guaiFENesin [guaiFENesin Oral 200 mg PO Q4H PRN 12/25/22 12/31/22 History Solution] traZODone HCL [Desyrel] 100 mg PO HS@2000 12/25/22 12/31/22 History Albuterol Sulfate [Ventolin HFA] 1 puff INHALATION RT-DAILY@0600 #1 12/29/22 12/31/22 Rx each Escitalopram [Lexapro] 10 mg PO DAILY@0600 10 Days #10 tab 12/29/22 12/31/22 Rx Fluticasone/Umeclidin/Vilanter 1 puff INHALATION RT-DAILY@0600 #1 12/29/22 Rx [Trelegy Ellipta 100-62.5-25] each Thiamine [Vitamin B-1] 100 mg PO DAILY 30 Days #30 tab 12/29/22 12/31/22 Rx busPIRone HCl [Buspar] 10 mg PO TID 10 Days #30 tab 12/29/22 12/31/22 Rx levETIRAcetam [Keppra] 1,000 mg PO BID@0600,1600 30 Days 12/29/22 12/31/22 Rx #60 tab Albuterol Nebulized [Ventolin 2.5 mg INHALATION RT-Q4H PRN 12/31/22 12/31/22 History Nebulized] Calcium/Mag/Zinc/D3 1 tab PO TID 12/31/22 12/31/22 History cefUROXime axetiL [Ceftin] 500 mg PO BID@0630,1630 12/31/22 12/31/22 History methylPREDNISolone Dose Pack See Taper PO DIRECTED 12/31/22 12/31/22 History [Medrol Dose Pack] Allergies Allergy/AdvReac Type Severity Reaction Status Date / Time No Known Allergies Allergy Verified 12/31/22 08:20 Physical Exam Osteopathic Statement: *. No significant issues noted on an osteopathic structural exam other than those noted in the History and Physical/Consult. Vitals: Vital Signs Temp Pulse Pulse Resp BP BP Pulse Ox 12/31/22 11:15 119 H 12/31/22 11:08 119 H 12/31/22 11:03 98 F 119 H 18 126/73 94 L 12/31/22 08:33 98.1 F 110 H 22 135/90 96 12/31/22 07:46 97 12/31/22 07:19 20 94 L 12/31/22 06:23 107 H 16 118/72 94 L 12/31/22 04:54 98.7 F 91 18 111/63 92 L 12/31/22 03:25 98.6 F 114 H 22 94 L 12/31/22 03:17 142 H 26 H 153/89 96 Intake and Output 12/30/22 12/31/22 12/31/22 22:59 06:59 14:59 Other: Voiding Method Toilet Weight 77.111 kg 77.111 kg No acute distress, oriented 3. Currently on 3 L. No conversational dyspnea or use of accessory muscles. HEENT examination is grossly unremarkable. Mucous membranes are moist. No oral lesions. Neck supple. Full range of motion. No adenopathy thyromegaly or neck vein distention. Cardiovascular examination reveals regular rhythm rate. S1-S2 normal. No S3 or S4. No discernible murmur noted. Heart rate 110 bpm. Lungs reveal scattered expiratory rhonchi and wheezes. Breath sounds are equal. Slight prolongation noted. No crackles. Breath sounds are diminished throughout. Saturations are 94%. Abdomen soft bowel sounds are heard. No masses or tenderness. Extremities are intact. No cyanosis clubbing or edema. Skin is without rash or lesion. Neurologic examination is brief but nonfocal. Results - Laboratory Findings CBC and BMP: 12/31/22 04:47 12/31/22 04:47 Abnormal lab findings: Abnormal Labs 12/31/22 12/31/22 04:47 04:47 WBC 31.5 H RBC 3.88 L MCV 101.9 H Plt Count 900 H Neutrophils # (Manual) 27.00 H Eosinophils # (Manual) 0.95 H Sodium 133 L Creatinine 0.39 L - Diagnostic Findings Chest x-ray: image reviewed Assessment and Plan Assessment: Acute hypoxemic respiratory failure, secondary to COPD exacerbation, complicated by right-sided pneumonia. Ongoing tobacco use with nicotine addiction. Chronic alcohol abuse. History of depression. Homelessness. Plan: Plan dated 12/31/2022. From the pulmonary standpoint, the patient's placed on Symbicort 160/4.5, 2 puffs twice a day, albuterol sulfate and ipratropium bromide breathing treatments, 4 times a day and when necessary. In addition, the patient is given prednisone 30 mg a day. Also, the patient was placed on Zosyn 3.375 g, every 8 hours. The patient was also placed on vancomycin, by the hospitalist service. A pro-calcitonin level was ordered. In addition, a Legionella antigen was ordered, as well as a sputum sample. We will continue to follow and make recommendations along the way. Prognosis is guarded. The patient is counseled about the importance of smoking cessation. Time with Patient: Greater than 30
[2022-12-31] MEDS: VANCOMYCIN 1,500 MG in SODIUM CHLORIDE 0.9% 500 ML 500 ML IVPB SCH ×2 (13:35→21:31)
[2022-12-31] MEDS: levETIRAcetam 500 MG TAB PO SCH (16:29)
[2022-12-31] MEDS: busPIRone HCl 10 MG TAB PO SCH ×2 (16:29→21:41)
[2022-12-31] MEDS ORDERED: traZODone HCL 100 MG TAB PO SCH (20:00)
[2022-12-31] MEDS: SYMBICORT 160-4.5 MCG INHALER INHALATION SCH (21:07)
[2023-01-01] MEDS ORDERED: ALBUTEROL HFA INHALER INHALATION SCH (06:00)
[2023-01-01] MEDS: levETIRAcetam 500 MG TAB PO SCH ×2 (06:10→18:26)
[2023-01-01] MEDS: NICOTINE 21MG/24HR PATCH TRANSDERM SCH (06:10)
[2023-01-01] MEDS: ESCITALOPRAM 10 MG TAB PO SCH (06:10)
[2023-01-01] MEDS: PIPERACILLIN-TAZOBACTAM 3.375 GM in SODIUM CHLORIDE 0.9% 100 ML IVPB SCH ×4 (08:00→20:47)
[2023-01-01 08:10] LABS: African American GFR (CKD) >90 (>60 ml/min/1.73 sqM); Non-African American GFR(CKD) >90 (>60 ml/min/1.73 sqM)
[2023-01-01] MEDS: SYMBICORT 160-4.5 MCG INHALER INHALATION SCH (08:16)
[2023-01-01] MEDS: IPRATROPIUM-ALBUTEROL 3 ML NEB INHALATION SCH ×4 (08:16→20:48)
[2023-01-01] MEDS: predniSONE 10 MG TAB PO SCH (08:52)
[2023-01-01] MEDS: THIAMINE 100 MG TAB PO SCH (08:52)
[2023-01-01] MEDS: busPIRone HCl 10 MG TAB PO SCH ×3 (08:52→21:45)
[2023-01-01] MEDS: NYSTATIN 100,000 UNIT/ML SUSP 500,000 UNIT/5 ML CUP PO SCH ×4 (08:53→21:56)
[2023-01-01] MEDS: ACETAMINOPHEN TAB 325 MG TAB PO SCH ×4 (08:54→21:45)
[2023-01-01 10:27] LABS: Basophils % (A) 0 %; Eosinophils # (A) 0.2 k/uL (0-0.7); Eosinophils % (A) 1 %; HCT 36.3 % (39.0-53.0); HGB 11.7 gm/dL (13.0-17.5); Lymphocytes # (A) 1.4 k/uL (1.0-4.8); Lymphocytes % (A) 5 %; MCH 34.1 pg (25.0-35.0); MCHC 32.3 g/dL (31.0-37.0); MCV 105.5 fL (80.0-100.0); Macrocytosis Slight; Mean Platelet Volume 7.6; Monocytes # (A) 1.1 k/uL (0-1.0); Monocytes % (A) 4 %; Neutrophils # (A) 22.8 k/uL (1.3-7.7); Neutrophils % (A) 89 %; Platelet Count 798 k/uL (150-450); RBC 3.44 m/uL (4.30-5.90); RDW 13.3 % (11.5-15.5); WBC 25.6 k/uL (3.8-10.6)
[2023-01-01 11:34] LABS: ALT 19 U/L (4-49); AST 15 U/L (17-59); African American GFR (CKD) >90 (>60 ml/min/1.73 sqM); Albumin 2.5 g/dL (3.5-5.0); Alkaline Phosphatase 75 U/L (38-126); Anion Gap 6 mmol/L; Blood Urea Nitrogen 8 mg/dL (9-20); Calcium 8.6 mg/dL (8.4-10.2); Carbon Dioxide 25 mmol/L (22-30); Chloride 102 mmol/L (98-107); Glucose 104 mg/dL (74-99); Non-African American GFR(CKD) >90 (>60 ml/min/1.73 sqM); Sodium 133 mmol/L (137-145); Total Bilirubin 0.3 mg/dL (0.2-1.3)
--- NOTE | 2023-01-01 11:34 | P.PN ---
Subjective Progress Note Date: 01/01/23 Principal diagnosis: Shortness of breath. Pulmonary consult dated 12/31/2022. 52-year-old male who was recently discharged from this hospital, with a COPD exacerbation. The patient was discharged, and went back to [place], because of his addiction. The patient states that apparently he smelled bleach at [place], and he became very short of breath. In addition, he complained of chest tightness, wheezing, coughing, and phlegm production. He was seen in the emergency department on December 31 at 3:00 in the morning. He is seen this morning, in the emergency department, room 30. He is on 3 L of oxygen. He's not receiving any IV fluids. His chest x-ray revealed a possible right lower lobe infiltrate. He is profoundly short of breath, which is why he came back in. White count 31.5, hemoglobin 13, hematocrit 39.6, and platelet count 900,000. Sodium 133, potassium 4.3, chlorides 99, CO2 28, BUN 15, creatinine 0.39. Studies for influenza, RSV, and coronavirus, are all negative. Chest x- ray shows worsening right lower lung airspace opacities/atelectasis, with a small effusion. Progress note dated 01/01/2023. The patient is seen today in room 155. He was seen in consultation yesterday, in the emergency department. He was admitted with a diagnosis of COPD exacerbation, and right lower lobe infiltrate. The patient's currently on 2 L of oxygen. His pro-calcitonin level was elevated 0.17. The patient had a chest x-ray ordered for tomorrow, January 02. He continues on Zosyn and vancomycin. White count is 25.6, hemoglobin 11.7, hematocrit 36.3, platelet count 798,000. Creatinine 0.43. Studies for influenza, Legionella, RSV, and coronavirus, are all negative. Objective - Vital Signs Vital signs: Vital Signs Temp 98.0 F 01/01/23 04:00 Pulse 99 01/01/23 08:27 Resp 22 01/01/23 04:00 BP 123/78 01/01/23 04:00 Pulse Ox 92 L 01/01/23 04:00 FiO2 Intake & Output 12/31/22 01/01/23 01/01/23 18:59 06:59 18:59 Intake Total 800 Output Total 500 Balance 800 -500 Weight 77.111 kg Intake: Intake, IV Titration 800 Amount Piperacillin-Tazobactam 3 100 .375 gm In Sodium Chloride 0.9% 100 ml @ 25 mls/hr IVPB Q8HR [facility] Rx# :[id number] Sodium Chloride 0.9% 1, 200 000 ml @ 100 mls/hr IV . Q10H [facility] Rx#:[id number] Vancomycin 1,500 mg In 500 Sodium Chloride 0.9% 500 ml 500 ml @ 167 mls/hr IVPB Q8H [facility] Rx#: [id number] Output: Urine 500 Other: Voiding Method Toilet # Voids 3 - Exam No acute distress, oriented 3. Currently on 2 L. No conversational dyspnea or use of accessory muscles. HEENT examination is grossly unremarkable. Mucous membranes are moist. No oral lesions. Neck supple. Full range of motion. No adenopathy thyromegaly or neck vein distention. Cardiovascular examination reveals regular rhythm rate. S1-S2 normal. No S3 or S4. No discernible murmur noted. Heart rate 99 bpm. Lungs reveal scattered expiratory rhonchi and wheezes. Breath sounds are equal. Slight prolongation noted. No crackles. Breath sounds are diminished throughout. Saturations are 94%. Abdomen soft bowel sounds are heard. No masses or tenderness. Extremities are intact. No cyanosis clubbing or edema. Skin is without rash or lesion. Neurologic examination is brief but nonfocal. - Labs CBC & Chem 7: 01/01/23 07:01 01/01/23 07:01 Labs: Abnormal Lab Results - Last 24 Hours (Table) 12/31/22 01/01/23 01/01/23 Range/Units 04:47 07:01 07:01 WBC 25.6 H (3.8-10.6) k/uL RBC 3.44 L (4.30-5.90) m/uL Hgb 11.7 L (13.0-17.5) gm/dL Hct 36.3 L (39.0-53.0) % MCV 105.5 H (80.0-100.0) fL Plt Count 798 H (150-450) k/uL Neutrophils # 22.8 H (1.3-7.7) k/uL Monocytes # 1.1 H (0-1.0) k/uL Creatinine 0.43 L (0.66-1.25) mg/dL Procalcitonin 0.17 H (0.02-0.09) ng/mL Assessment and Plan Assessment: Acute hypoxemic respiratory failure, secondary to COPD exacerbation, complicated by right-sided pneumonia. Ongoing tobacco use with nicotine addiction. Chronic alcohol abuse. History of depression. Homelessness. Plan: Plan dated 12/31/2022. From the pulmonary standpoint, the patient's placed on Symbicort 160/4.5, 2 puffs twice a day, albuterol sulfate and ipratropium bromide breathing treatments, 4 times a day and when necessary. In addition, the patient is given prednisone 30 mg a day. Also, the patient was placed on Zosyn 3.375 g, every 8 hours. The patient was also placed on vancomycin, by the hospitalist service. A pro-calcitonin level was ordered. In addition, a Legionella antigen was ordered, as well as a sputum sample. We will continue to follow and make recommendations along the way. Prognosis is guarded. The patient is counseled about the importance of smoking cessation. Plan dated 01/01/2023. The patient is doing slightly better. The patient continues on appropriate therapy, including bronchodilators, antibiotics, and steroids. We will continue to follow make recommendations along the way. We also counseled the patient about the points of smoking cessation, once and for all. Studies for influenza, RSV, coronavirus, and legionella are thus far negative. The patient continues on vancomycin and Zosyn. We will continue to follow and make recommendations along the way. Prognosis is guarded. Time with Patient: Less than 30
[2023-01-01] MEDS: VANCOMYCIN 1,500 MG in SODIUM CHLORIDE 0.9% 500 ML 500 ML IVPB SCH ×3 (11:35→20:48)
[2023-01-01] MEDS: SENNOSIDES 8.6 MG TAB PO SCH ×2 (14:05→21:45)
[2023-01-01] MEDS: SODIUM CHLORIDE 0.9% 1,000 ML IV SCH ×3 (14:56→18:49)
--- NOTE | 2023-01-01 15:50 | P.PN ---
Subjective Progress Note Date: 01/01/23 Patient.52-year-old male came in with comments of shortness of breath does have history of COPD quit smoking about a week ago patient is a drug rehabitation program at this time. Chest x-ray was done which showed increasing infiltrate on the right side patient was on third-generation supposed for him for pneumonia as an outpatient. Patient does have wheezing which appears to be more of stridor. Patient does have oral thrush on exam. Patient is oxygen usually doesn't use any oxygen at home. Pro-calcitonin was ordered patient has leukocytosis with WBC count of 30,000 although patient is on steroids as an outpatient. Patient believes inhalational bleach she at the facility may have caused his COPD exacerbation. Patient is presently nicotine patches. Patient doesn't have any fever 01/01/2023 Patient seen and evaluated in follow-up today with pulmonary following. Patient continued on oral steroids now for COPD exacerbation along with breathing treatments. Repeat labs pending at this time and pro-calcitonin was 0.17. Patient is continued on vancomycin and Zosyn and will continue for now with attempting to obtain a sputum culture. Sputum culture was sent and pending at this time. Patient continues to have dyspnea and right side pain with inspiration will add incentive spirometer and also consult infectious disease and appreciate input and recommendations. Patient is currently afebrile with no reported chest pain or palpitations. Patient is tolerating diet and denies any nausea or vomiting. Patient reports is up and walking to the bathroom and becomes dyspneic and has to rest. Patient is continued on 2 L via nasal cannula. Review of systems: Constitutional: No reports of fatigue, fever, or chills Cardiovascular: No reports of chest pain or palpitations Respiratory: reports of shortness of breath with cough and right-sided rib pain with deep inspiration and becomes more short of breath with exertion GI: No reports of nausea, vomiting, or diarrhea : No reports of dysuria or retention Neurovascular: No reports of weakness or numbness All medications have been reviewed PHYSICAL EXAMINATION: GENERAL: The patient is alert and oriented x3, not in any acute distress. Well developed, well nourished. HEENT: Pupils are round and equally reacting to light. EOMI. No scleral icterus. No conjunctival pallor. Normocephalic, atraumatic. No pharyngeal erythema. No thyromegaly. CARDIOVASCULAR: S1 and S2 present. No murmurs, rubs, or gallops. PULMONARY: Diminished breath sounds bilaterally otherwise Chest is clear to auscultation. There is some faint expiratory wheezing noted at the bases more so on the right ABDOMEN: Soft, nontender, nondistended, normoactive bowel sounds. No palpable organomegaly. MUSCULOSKELETAL: No joint swelling or deformity. EXTREMITIES: No cyanosis, clubbing, or pedal edema. NEUROLOGICAL: Gross neurological examination did not reveal any focal deficits. SKIN: No rashes. Assessment: -COPD with acute exacerbation -Possibility of worsening pneumonia sputum cultures will be obtained patient the will be switched to Zosyn and vancomycin from a dose sputum cultures will be up and focused on will be obtained. -Seizure disorder and patient will be resumed on home seizure medications -Alcohol abuse and nicotine abuse patient is presently not drug rehabitation program -DVT prophylaxis: Lovenox -GI prophylaxis -Full code Plan: Pulmonary following and continued on DuoNeb treatments along with oral steroids and 2 L of oxygen via nasal cannula. Patient does not wear oxygen outpatient White count remains elevated although mostly steroid-induced pro-calcitonin was 0.17 and sputum culture was sent and pending will continue Vanco and Zosyn and consult infectious disease and appreciate input and recommendations. Follow-up chest x-ray ordered and will decide if repeat CT is needed. Patient continues with week inspiration and reporting right-sided rib pain Will add Toradol and also incentive spirometer encourage the patient to continue using at least 10 times every hour while awake Encouraged increased activity as tolerated Will follow-up on repeat labs in a.m. Plan is to return to [place] when stable to complete his alcohol rehab Patient is not actively withdrawing and will not require CIWA protocol Patient is reporting feeling somewhat constipated and has not had a bowel movement, will add bowel regimen The impression and plan of care has been dictated by Nurse Xiomy Prac titioner as directed. Dr. Noe MD I have performed a history and examination and MDM of this patient, discussed the same with the dictator, and agree with the dictator's assessment and plan as written ,documented as a scribe. Based on total visit time, I have performed more than 50% of the visit. Objective - Vital Signs Vital signs: Vital Signs Temp 98.0 F 01/01/23 04:00 Pulse 99 01/01/23 08:27 Resp 22 01/01/23 04:00 BP 123/78 01/01/23 04:00 Pulse Ox 92 L 01/01/23 04:00 FiO2 Intake & Output 12/31/22 01/01/23 01/01/23 18:59 06:59 18:59 Intake Total 800 Output Total 500 Balance 800 -500 Weight 77.111 kg Intake: Intake, IV Titration 800 Amount Piperacillin-Tazobactam 3 100 .375 gm In Sodium Chloride 0.9% 100 ml @ 25 mls/hr IVPB Q8HR [facility] Rx# :[id number] Sodium Chloride 0.9% 1, 200 000 ml @ 100 mls/hr IV . Q10H [facility] Rx#:[id number] Vancomycin 1,500 mg In 500 Sodium Chloride 0.9% 500 ml 500 ml @ 167 mls/hr IVPB Q8H [facility] Rx#: [id number] Output: Urine 500 Other: Voiding Method Toilet # Voids 3 - Labs CBC & Chem 7: 01/01/23 07:01 01/01/23 07:01 Labs: Abnormal Lab Results - Last 24 Hours (Table) 12/31/22 01/01/23 Range/Units 04:47 07:01 Creatinine 0.43 L (0.66-1.25) mg/dL Procalcitonin 0.17 H (0.02-0.09) ng/mL
[2023-01-01] MEDS: KETOROLAC 15 MG/ML 1 ML VIAL IVP SCH ×2 (18:16→21:45)
[2023-01-01] MEDS: BUDESONIDE 1 MG/2 ML NEBU INHALATION SCH (20:47)
[2023-01-01] MEDS: FORMOTEROL FUMARATE 20 MCG/2 ML NEBU INHALATION SCH (20:47)
[2023-01-01] MEDS ORDERED: CALCIUM CARBONATE 500 MG CHEWABLE PO PRN (21:48)
--- NOTE | 2023-01-01 22:14 | P.CONS ---
History of Present Illness - Reason for Consult Consult date: 01/01/23 - History of Present Illness Patient is a 52-year-old male with a past medical his significant for COPD seizure disorder psoriasis current everyday smoker presenting to the hospital yesterday morning for evaluation of increasing shortness of breath patient symptom has been going home for a day or 2 before presentation to hospital with complaining of mostly shortness of breath he did have a cough moderate intensity and is bring up some purulent sputum no hemoptysis has been complaining of pain to the right lower chest area describing it to be sharp intensity almost 7-8 out of 10 no radiation with the symptoms the patient has been evaluated on presentation to the hospital patient was afebrile patient is mildly tachycardic not hypotensive was hypoxic on supplemental oxygen patient did have vital of 31.5 with a left shift creatinine 0.39 procalcitonin 0.17 influenza RSV COVID testing was negative urine for Legionella antigen is negative patient did have a chest x-ray worsening right mid to lower lung ai rspace disease patient is currently on vancomycin and Zosyn infectious disease was consulted for further management of antibiotic therapy Past Medical History Past Medical History: COPD, Seizure Disorder Additional Past Medical History / Comment(s): psoriasis, right elbow surgery r/t mrsa History of Any Multi-Drug Resistant Organisms: MRSA Year Discovered:: 2000 MDRO Source:: cut and swam in [place] Past Surgical History: Unable to Obtain Additional Past Surgical History / Comment(s): Right elbow surgery. Past Anesthesia/Blood Transfusion Reactions: No Reported Reaction Past Psychological History: No Psychological Hx Reported Smoking Status: Current every day smoker Past Alcohol Use History: Abuse, Daily, Heavy Additional Past Alcohol Use History / Comment(s): Heavy daily drinker. Pint plus 5-12 beers daily. Past Drug Use History: None Reported - Past Family History Mother Family Medical History: COPD Additional Family Medical History / Comment(s): Pancreatic cancer Father Family Medical History: No Reported History Additional Family Medical History / Comment(s): at age 47 from accidental . Medications and Allergies Home Medications Medication Instructions Recorded Confirmed Type Acetaminophen Tab [Tylenol] 650 mg PO QID 12/25/22 12/31/22 History Chlorpheniramine Maleate 4 mg PO Q4H PRN 12/25/22 12/31/22 History [Chlor-Trimeton] Ibuprofen [Motrin] 600 mg PO TID@0600,1130,2100 12/25/22 12/31/22 History Multivitamins, Thera [Multivitamin 1 tab PO DAILY@0600 12/25/22 12/31/22 History (formulary)] Nicotine 21Mg/24Hr Patch [Habitrol] 1 patch TRANSDERM DAILY@0600 12/25/22 12/31/22 History Thera M Iron 9 mg PO DAILY@0600 12/25/22 12/31/22 History guaiFENesin [guaiFENesin Oral 200 mg PO Q4H PRN 12/25/22 12/31/22 History Solution] traZODone HCL [Desyrel] 100 mg PO HS@199912/25/22 12/31/22 History Albuterol Sulfate [Ventolin HFA] 1 puff INHALATION RT-DAILY@0600 #1 12/29/22 12/31/22 Rx each Escitalopram [Lexapro] 10 mg PO DAILY@0600 10 Days #10 tab 12/29/22 12/31/22 Rx Fluticasone/Umeclidin/Vilanter 1 puff INHALATION RT-DAILY@0600 #1 12/29/22 12/31/22 Rx [Trelegy Ellipta 100-62.5-25] each Thiamine [Vitamin B-1] 100 mg PO DAILY 30 Days #30 tab 12/29/22 12/31/22 Rx busPIRone HCl [Buspar] 10 mg PO TID 10 Days #30 tab 12/29/22 12/31/22 Rx levETIRAcetam [Keppra] 1,000 mg PO BID@0600,1600 30 Days 12/29/22 12/31/22 Rx #60 tab Albuterol Nebulized [Ventolin 2.5 mg INHALATION RT-Q4H PRN 12/31/22 12/31/22 History Nebulized] Calcium/Mag/Zinc/D3 1 tab PO TID 12/31/22 12/31/22 History cefUROXime axetiL [Ceftin] 500 mg PO BID@0630,1630 12/31/22 12/31/22 History methylPREDNISolone Dose Pack See Taper PO DIRECTED 12/31/22 12/31/22 History [Medrol Dose Pack] Allergies Allergy/AdvReac Type Severity Reaction Status Date / Time No Known Allergies Allergy Verified 12/31/22 08:20 Physical Exam Vitals: Vital Signs Temp Pulse Pulse Resp BP BP Pulse Ox 01/01/23 12:00 97.5 F L 100 20 135/79 90 L 01/01/23 11:44 100 01/01/23 11:35 96 01/01/23 08:27 99 01/01/23 08:18 100 01/01/23 04:00 98.0 F 109 H 22 123/78 92 L 12/31/22 21:23 92 12/31/22 21:07 88 12/31/22 20:36 100 16 126/73 98 12/31/22 16:26 105 H 12/31/22 16:14 105 H Intake and Output 12/31/22 01/01/23 01/01/23 22:59 06:59 14:59 Intake Total 800 120 Output Total 500 Balance 800 -380 Intake: Intake, IV Titration 800 Amount Piperacillin-Tazobactam 3 100 .375 gm In Sodium Chloride 0.9% 100 ml @ 25 mls/hr IVPB Q8HR [facility] Rx# :[id number] Sodium Chloride 0.9% 1, 200 000 ml @ 100 mls/hr IV . Q10H [facility] Rx#:[id number] Vancomycin 1,500 mg In 500 Sodium Chloride 0.9% 500 ml 500 ml @ 167 mls/hr IVPB Q8H [facility] Rx#: [id number] Oral 120 Output: Urine 500 Other: # Voids 3 Results CBC & Chem 7: 01/01/23 07:01 01/01/23 07:01 Labs: Abnormal Lab Results - Last 24 Hours (Table) 12/31/22 01/01/23 01/01/23 Range/Units 04:47 07:01 07:01 WBC 25.6 H (3.8-10.6) k/uL RBC 3.44 L (4.30-5.90) m/uL Hgb 11.7 L (13.0-17.5) gm/dL Hct 36.3 L (39.0-53.0) % MCV 105.5 H (80.0-100.0) fL Plt Count 798 H (150-450) k/uL Neutrophils # 22.8 H (1.3-7.7) k/uL Monocytes # 1.1 H (0-1.0) k/uL Sodium (137-145) mmol/L BUN (9-20) mg/dL Creatinine 0.43 L (0.66-1.25) mg/dL Glucose (74-99) mg/dL AST (17-59) U/L Total Protein (6.3-8.2) g/dL Albumin (3.5-5.0) g/dL Procalcitonin 0.17 H (0.02-0.09) ng/mL 01/01/23 Range/Units 07:01 WBC (3.8-10.6) k/uL RBC (4.30-5.90) m/uL Hgb (13.0-17.5) gm/dL Hct (39.0-53.0) % MCV (80.0-100.0) fL Plt Count (150-450) k/uL Neutrophils # (1.3-7.7) k/uL Monocytes # (0-1.0) k/uL Sodium 133 L (137-145) mmol/L BUN 8 L (9-20) mg/dL Creatinine 0.42 L (0.66-1.25) mg/dL Glucose 104 H (74-99) mg/dL AST 15 L (17-59) U/L Total Protein 5.0 L (6.3-8.2) g/dL Albumin 2.5 L (3.5-5.0) g/dL Procalcitonin (0.02-0.09) ng/mL Assessment and Plan Plan: 1patient presented to hospital with increasing shortness of breath and a cough and evidence of pneumonia on the chest x-ray did have elevated white count and procalcitonin patient did have history of COPD has been in and out of the hospital we need to cover for resistant gram-positive as well as gram-negative pathogen) did have a previous history of MRSA infection 2-we will continue patient on vancomycin while watching his kidney function closely however switch Zosyn to cefepime to decrease risk of nephrotoxicity 3-blood and sputum culture has been obtained results will be followed We will follow on clinical condition and cultures to further adjust medication if needed Thank you for this consultation we will follow the patient along with you Dictation was produced using [employer] software. please excuse any grammatical, word or spelling errors. Time with Patient: Greater than 30
[2023-01-01] MEDS: guaiFENesin-DM 100-10MG/5ML 10 ML CUP PO PRN (22:31)
[2023-01-01] MEDS: traZODone HCL 100 MG TAB PO SCH (23:08)
[2023-01-02] MEDS ORDERED: VANCOMYCIN TROUGH DUE 1 EACH MISC MISCELLANE ONE (03:00)
[2023-01-02] MEDS: KETOROLAC 15 MG/ML 1 ML VIAL IVP SCH ×4 (04:03→20:58)
[2023-01-02] MEDS: PIPERACILLIN-TAZOBACTAM 3.375 GM in SODIUM CHLORIDE 0.9% 100 ML IVPB SCH (04:04)
[2023-01-02 04:53] LABS: African American GFR (CKD) >90 (>60 ml/min/1.73 sqM); Non-African American GFR(CKD) >90 (>60 ml/min/1.73 sqM)
[2023-01-02] MEDS: VANCOMYCIN 1,500 MG in SODIUM CHLORIDE 0.9% 500 ML 500 ML IVPB SCH (04:58)
[2023-01-02] MEDS: levETIRAcetam 500 MG TAB PO SCH ×2 (06:04→16:17)
[2023-01-02] MEDS: NICOTINE 21MG/24HR PATCH TRANSDERM SCH (06:04)
[2023-01-02] MEDS: ESCITALOPRAM 10 MG TAB PO SCH (06:04)
[2023-01-02] MEDS: guaiFENesin-DM 100-10MG/5ML 10 ML CUP PO PRN ×2 (06:24→20:59)
[2023-01-02] MEDS: BUDESONIDE 1 MG/2 ML NEBU INHALATION SCH (07:43)
[2023-01-02] MEDS: FORMOTEROL FUMARATE 20 MCG/2 ML NEBU INHALATION SCH (07:43)
[2023-01-02] MEDS: IPRATROPIUM-ALBUTEROL 3 ML NEB INHALATION SCH ×4 (07:43→20:37)
--- NOTE | 2023-01-02 08:29 | XR ---
EXAMINATION TYPE: XR chest 1V portable DATE OF EXAM: 01/02/2023 COMPARISON: 12/31/2022 HISTORY: Cough TECHNIQUE: Single frontal view of the chest is obtained. FINDINGS: Bilateral consolidation and small right effusion. Chronic rib deformities. Diffuse osteope liam. No pneumothorax. Heart size stable. IMPRESSION: 1. Bilateral infiltrate and small right effusion stable.
[2023-01-02] MEDS: ACETAMINOPHEN TAB 325 MG TAB PO SCH ×4 (08:56→23:06)
[2023-01-02] MEDS: predniSONE 10 MG TAB PO SCH (08:56)
[2023-01-02] MEDS: THIAMINE 100 MG TAB PO SCH (08:56)
[2023-01-02] MEDS: NYSTATIN 100,000 UNIT/ML SUSP 500,000 UNIT/5 ML CUP PO SCH ×4 (08:56→23:07)
[2023-01-02] MEDS: SENNOSIDES 8.6 MG TAB PO SCH ×3 (08:57→21:10)
[2023-01-02] MEDS: busPIRone HCl 10 MG TAB PO SCH ×3 (08:57→23:06)
[2023-01-02] MEDS: SODIUM CHLORIDE 0.9% 1,000 ML IV SCH (11:04)
[2023-01-02] MEDS ORDERED: VANCOMYCIN IV PER PHARMACY 1 EACH MISC MISCELLANE PRN (11:11)
[2023-01-02] MEDS: CEFEPIME 2 GM in SODIUM CHLORIDE 0.9% 100 ML IVPB SCH ×2 (13:40→20:57)
[2023-01-02] MEDS: VANCOMYCIN 1,750 MG in SODIUM CHLORIDE 0.9% 500 ML 500 ML IVPB SCH ×2 (13:40→20:57)
--- NOTE | 2023-01-02 16:08 | CT ---
EXAMINATION TYPE: CT chest angio for PE DATE OF EXAM: 01/02/2023 COMPARISON: 12/25/2022 HISTORY: 52-year-old male SOB, r/o PE, RT side lung pain TECHNIQUE: Contiguous axial scanning of the chest performed with IV Contrast, patient injected with 1 00 mL of Isovue 370. Coronal/sagittal MIP reconstructions performed. CT DLP: 308.3 mGycm Automated exposure control for dose reduction was used. FINDINGS: Heart normal size without pericardial effusion. No flattening of the interventricular septum or reflu x of contrast into the hepatic veins. There is some volume loss in the right hemithorax with some slight rightward cardiac and mediastinal shift. Aorta normal caliber with bovine configuration to the aortic arch. Suboptimal contrast bolus as well as breathing motion artifact. However, no definite pulmonary embolu s is seen. There is enlarging, now moderate-sized right pleural effusion. Combination of atelectasis and consoli dation throughout the right middle lobe, worsened from 12/25/2022. There is also now atelectatic [place] of the right lower lobe. Trace left pleural effusion. Mild emphysematous change. Focal subpleural opacity measuring 3.2 cm anterior medial right midlung versus 4.1 cm, previously. Pn eumonia suspected. Some minimal scattered groundglass change in the periphery of the left mid and lower lung. Right hilar lymph node 2.4 cm, probably reactive. Visualized upper abdomen shows no gross abnormality. Bones: No osseous destructive process. Possible old upper sternal body fracture. IMPRESSION: 1. SUBOPTIMAL CONTRAST BOLUS WELL BREATHING MOTION ARTIFACT. NO DEFINITE PULMONARY EMBOLUS. 2. WORSENING, NOW MODERATE SIZED RIGHT PLEURAL EFFUSION. NEW ATELECTATIC COLLAPSE OF THE RIGHT LOWER LOBE. 3. ALSO, WORSENING CONSOLIDATION AND VOLUME LOSS THROUGHOUT THE RIGHT MIDDLE LOBE. CORRELATE FOR PNEU MONIA. 4. POSSIBLE SMALL PNEUMONIC INFILTRATE ANTEROMEDIAL RIGHT MID LUNG PERSISTS THOUGH MINIMALLY SMALLER. 5. PERSISTENT RIGHT HILAR LYMPH NODE, MAY BE REACTIVE MEASURING UP TO 2.4 CM.
--- NOTE | 2023-01-02 16:19 | P.PN ---
Subjective Progress Note Date: 01/02/23 52-year-old male who was recently discharged from this hospital, with a COPD exacerbation. The patient was discharged, and went back to [place], because of his addiction. The patient states that apparently he smelled bleach at [place], and he became very short of breath. In addition, he complained of chest tightness, wheezing, coughing, and phlegm production. He was seen in the emergency department on December 31 at 3:00 in the morning. He is seen this morning, in the emergency department, room 30. He is on 3 L of oxygen. He's not receiving any IV fluids. His chest x-ray revealed a possible right lower lobe infiltrate. He is profoundly short of breath, which is why he came back i n. White count 31.5, hemoglobin 13, hematocrit 39.6, and platelet count 900,000. Sodium 133, potassium 4.3, chlorides 99, CO2 28, BUN 15, creatinine 0.39. Studies for influenza, RSV, and coronavirus, are all negative. Chest x- ray shows worsening right lower lung airspace opacities/atelectasis, with a small effusion. Progress note dated 01/01/2023. The patient is seen today in room 155. He was seen in consultation yesterday, in the emergency department. He was admitted with a diagnosis of COPD exacerbation, and right lower lobe infiltrate. The patient's currently on 2 L of oxygen. His pro-calcitonin level was elevated 0.17. The patient had a chest x-ray ordered for tomorrow, January 02. He continues on Zosyn and vancomycin. White count is 25.6, hemoglobin 11.7, hematocrit 36.3, platelet count 798,000. Creatinine 0.43. Studies for influenza, Legionella, RSV, and coronavirus, are all negative. The patient is seen today 01/02/2023 in follow-up on the regular medical floor. He is up ambulating in his room. Awake and alert in no acute distress. Maintaining O2 saturations in the 90s on room air. He's been afebrile. Hemodynamically stable. Chest x-ray shows bilateral infiltrate and small right effusion. No pneumothorax. CT angiogram was suboptimal due to contrast bolus and breathing motion artifact. No definite pulmonary embolus. There is worsening now moderate-sized right pleural effusion, new atelectatic collapse of the right lower lobe. Also worsening consolidation and volume loss throughout the right middle lobe. Possible small pneumonic infiltrate anteromedial right midlung persist though minimally smaller. Persistent right hilar lymph node, suspect reactive measuring up to 2.4 cm. Sputum culture pending. Creatinine 0.53. Vancomycin trough 11.6. He is continued on DuoNeb inhalations, Symbicort, prednisone taper. He is continued on vancomycin and cefepime. NicoDerm patch in place. Objective - Vital Signs Vital signs: Vital Signs Temp 98.3 F 01/02/23 13:22 Pulse 84 01/02/23 16:04 Resp 18 01/02/23 13:22 BP 140/78 01/02/23 13:22 Pulse Ox 94 L 01/02/23 13:22 FiO2 Intake & Output 01/01/23 01/02/23 01/02/23 18:59 06:59 18:59 Intake Total 240 Output Total 500 Balance -260 Intake: Oral 240 Output: Urine 500 Other: # Voids 1 3 - Exam GENERAL EXAM: Alert, active, 52-year-old male patient, on room air, comfortable in no apparent distress. HEAD: Normocephalic. EYES: Normal reaction of pupils, equal size. NOSE: Clear with pink turbinates. THROAT: No erythema or exudates. NECK: No masses, no JVD. CHEST: No chest wall deformity. LUNGS: Equal air entry with bilateral end expiratory wheeze, few scattered rhonchi more so on the right lung. CVS: S1 and S2 normal with no audible murmur, regular rhythm. ABDOMEN: No hepatosplenomegaly, normal bowel sounds, no guarding or rigidity. SPINE: No scoliosis or deformity SKIN: No rashes CENTRAL NERVOUS SYSTEM: No focal deficits, tone is normal in all 4 extremities. EXTREMITIES: There is no peripheral edema. No clubbing, no cyanosis. Peripheral pulses are intact. - Labs CBC & Chem 7: 01/01/23 07:01 01/02/23 04:00 Labs: Abnormal Lab Results - Last 24 Hours (Table) 01/02/23 Range/Units 04:00 Creatinine 0.53 L (0.66-1.25) mg/dL Microbiology - Last 24 Hours (Table) 01/01/23 07:00 Gram Stain - Preliminary Sputum Assessment and Plan Assessment: Acute hypoxemic respiratory failure, secondary to COPD exacerbation, complicated by right-sided pneumonia. Ongoing tobacco use with nicotine addiction. Chronic alcohol abuse. History of depression. Homelessness. Plan: The patient was seen and evaluated Chest x-ray, computed tomography scan, labs and medications reviewed We will obtain an ultrasound of the right chest If free-flowing fluid we'll perform thoracentesis May perform bronchoscopy with BAL and a.m. Continued on vancomycin and cefepime Continue bronchodilators, steroids We will continue to follow I have personally seen and examined the patient, performed the documentation and the assessment and plan as written. Number of minutes spent on the visit: 10.
--- NOTE | 2023-01-02 16:38 | P.PN ---
Subjective Progress Note Date: 01/02/23 Principal diagnosis: Pneumonia Patient is a 52-year-old male with a past medical his significant for COPD seizure disorder psoriasis current everyday smoker presenting to the hospital for evaluation of increasing shortness of breath also have a productive cough and right-sided chest pain. On today's evaluation that is 01/02/2023, the patient remains to be afebrile t he patient is breathing comfortably on room air without need for supplemental oxygen, the patient is still complaining of right-sided chest pain however slightly decreased intensity, cough is also decreased intensity and less productive, patient denies nausea/vomiting , no diarrhea and no abdominal pain. Patient did have white count 25.6 as of yesterday no CBC was done today creatinine 0.53, cultures are pending Objective - Vital Signs Vital signs: Vital Signs Temp 98.3 F 01/02/23 07:09 Pulse 88 01/02/23 11:40 Resp 16 01/02/23 07:09 BP 144/82 01/02/23 07:09 Pulse Ox 94 L 01/02/23 07:09 FiO2 Intake & Output 01/01/23 01/02/23 01/02/23 18:59 06:59 18:59 Intake Total 240 Output Total 500 Balance -260 Intake: Oral 240 Output: Urine 500 Other: # Voids 1 3 - Exam GENERAL DESCRIPTION: Middle-aged male lying in bed in no distress RESPIRATORY SYSTEM: Unlabored breathing , decreased breath sounds at bases HEART: S1 S2 regular rate and rhythm , ABDOMEN: Soft , no tenderness EXTREMITIES: No edema feet - Labs CBC & Chem 7: 01/01/23 07:01 01/02/23 04:00 Labs: Abnormal Lab Results - Last 24 Hours (Table) 01/02/23 Range/Units 04:00 Creatinine 0.53 L (0.66-1.25) mg/dL Assessment and Plan (1) Pneumonia Current Visit: No Status: Acute Code(s): J18.9 - PNEUMONIA, UNSPECIFIED ORGANISM SNOMED Code(s): 202944606 Plan: 1patient presented to hospital with increasing shortness of breath and a cough and evidence of pneumonia on the chest x-ray did have elevated white count and procalcitonin patient did have history of COPD has been in and out of the hospital we need to cover for resistant gram-positive as well as gram-negative pathogen) did have a previous history of MRSA infection 2-patient benefit from repeat CT because of persistent right-sided pain, to make sure no evidence of any loculated effusion/empyema 3-patient to continue with the vancomycin and cefepime while waiting for the cultures to finalize Dictation was produced using [employer] dictation software. please excuse any grammatical, word or spelling errors. Time with Patient: Less than 30
--- NOTE | 2023-01-02 17:43 | US ---
EXAMINATION TYPE: US chest DATE OF EXAM: 01/02/2023 COMPARISON: CT and X-ray also done today 01/02/23 CLINICAL INDICATION: Male, 52 years old with history of Right pleural effusion; Right pleural effusio n TECHNIQUE: Targeted ultrasound of the posterior lower right hemithorax EXAM MEASUREMENTS: Right Pleural Effusion pocket size: 5.1 cm Right skin surface to fluid distance: 3.6 cm Right side marked for possible thoracentesis outside the dept. Pulmonologists are able to review the images in the patient?s EMR. Several images taken at right hemithorax showing pleural effusion with internal debris and septations . Area marked at deepest unobstructed pocket IMPRESSIONS: Moderate right pleural effusion.
--- NOTE | 2023-01-02 19:35 | P.PN ---
Subjective Progress Note Date: 01/02/23 Patient.52-year-old male came in with comments of shortness of breath does have history of COPD quit smoking about a week ago patient is a drug rehabitation program at this time. Chest x-ray was done which showed increasing infiltrate on the right side patient was on third-generation supposed for him for pneumonia as an outpatient. Patient does have wheezing which appears to be more of stridor. Patient does have oral thrush on exam. Patient is oxygen usually doesn't use any oxygen at home. Pro-calcitonin was ordered patient has leukocytosis with WBC count of 30,000 although patient is on steroids as an outpatient. Patient believes inhalational bleach she at the facility may have caused his COPD exacerbation. Patient is presently nicotine patches. Patient doesn't have any fever 01/01/2023 Patient seen and evaluated in follow-up today with pulmonary following. Patient continued on oral steroids now for COPD exacerbation along with breathing treatments. Repeat labs pending at this time and pro-calcitonin was 0.17. Patient is continued on vancomycin and Zosyn and will continue for now with attempting to obtain a sputum culture. Sputum culture was sent and pending at this time. Patient continues to have dyspnea and right side pain with inspiration will add incentive spirometer and also consult infectious disease and appreciate input and recommendations. Patient is currently afebrile with no reported chest pain or palpitations. Patient is tolerating diet and denies any nausea or vomiting. Patient reports is up and walking to the bathroom and becomes dyspneic and has to rest. Patient is continued on 2 L via nasal cannula. 01/02/2023 Patient is seen in follow-up today with pulmonary and infectious disease following. Patient continues to report right-sided lung pain and chest wall pain with difficulty breathing and taking deep breaths. Patient is maintained on antibiotics with infectious disease following and has ordered repeat sputum culture which was sent and pending. Infectious disease recommending awaiting cultures and continue on IV antibiotics before transitioning to oral to await cultures. Patient is also continued on nystatin for thrush which is improving. Patient is off oxygen and uses it as needed although maintaining oxygen saturation above 90% on room air. Patient with incentive spirometer at bedside instructed to continue using at least 10 times every hour while awake. Patient is being considered for discharge by pulmonary although still concerned with patient still being symptomatic and will obtain repeat CT chest for further evaluation. Review of systems: Constitutional: No reports of fatigue, fever, or chills Cardiovascular: No reports of chest pain or palpitations Respiratory: reports of shortness of breath with cough and right-sided rib pain with deep inspiration and becomes more short of breath with exertion GI: No reports of nausea, vomiting, or diarrhea : No reports of dysuria or retention Neurovascular: No reports of weakness or numbness All medications have been reviewed PHYSICAL EXAMINATION: GENERAL: The patient is alert and oriented x3, not in any acute distress. Appears to be slowly clinically improving and on room air. Well developed, well nourished. HEENT: Pupils are round and equally reacting to light. EOMI. No scleral icterus. No conjunctival pallor. Normocephalic, atraumatic. No pharyngeal erythema. No thyromegaly. CARDIOVASCULAR: S1 and S2 present. No murmurs, rubs, or gallops. PULMONARY: Diminished breath sounds bilaterally otherwise Chest is clear to auscultation. There is some faint crackles noted at the bases more so on the right ABDOMEN: Soft, nontender, nondistended, normoactive bowel sounds. No palpable organomegaly. MUSCULOSKELETAL: No joint swelling or deformity. EXTREMITIES: No cyanosis, clubbing, or pedal edema. NEUROLOGICAL: Gross neurological examination did not reveal any focal deficits. SKIN: No rashes. Assessment: -COPD with acute exacerbation -Acute hypoxic respiratory failure multifactorial secondary to pneumonia as well as COPD exacerbation -worsening pneumonia , community-acquired, repeat sputum cultures obtained and pending. patient will be switched to cefepime and vancomycin -Moderate-sized right pleural effusion with new atelectatic collapse of the right lower lobe -Seizure disorder, continued on home medications -Alcohol abuse and nicotine abuse patient is presently at drug rehabitation program at [facility] with plans to return there on discharge -DVT prophylaxis: Lovenox -GI prophylaxis -Full code Plan: Pulmonary following and continued on DuoNeb treatments along with oral steroids and 2 L of oxygen via nasal cannula. Patient currently on room air weaned off oxygen and reports using intermittently. Oxygen saturation above 90% today on room air Patient was being transitioned oral antibiotics although concerns of being symptomatic still and having right side chest wall pain as well as lung pain with difficulty in breathing and ordered repeat CT as mentioned above and plan is for chest ultrasound with pulmonary following to discuss possible thoracentesis and the need for bronchoscopy. Patient will continue on cefepime and vancomycin with infectious disease following and await repeat sputum culture that has been sent. Encouraged increased activity as tolerated Encouraged incentive spirometer use at least 10 times every hour while awake Will follow-up on repeat labs in a.m. Plan is to return to [facility] when stable to complete his alcohol rehab Patient is not actively withdrawing and will not require CIWA protocol The impression and plan of care has been dictated by Kimmie Marley, Nurse Practitioner as directed. Dr. Neo MD I have performed a history and examination and MDM of this patient, discussed the same with the dictator, and agree with the dictator's assessment and plan as written ,documented as a scribe. Based on total visit time, I have performed more than 50% of the visit. Objective - Vital Signs Vital signs: Vital Signs Temp 98.3 F 01/02/23 07:09 Pulse 84 01/02/23 08:14 Resp 16 01/02/23 07:09 BP 144/82 01/02/23 07:09 Pulse Ox 94 L 01/02/23 07:09 FiO2 Intake & Output 01/01/23 01/02/23 01/02/23 18:59 06:59 18:59 Intake Total 240 Output Total 500 Balance -260 Intake: Oral 240 Output: Urine 500 Other: # Voids 1 3 - Labs CBC & Chem 7: 01/01/23 07:01 01/02/23 04:00 Labs: Abnormal Lab Results - Last 24 Hours (Table) 01/01/23 01/01/23 01/02/23 Range/Units 07:01 07:01 04:00 WBC 25.6 H (3.8-10.6) k/uL RBC 3.44 L (4.30-5.90) m/uL Hgb 11.7 L (13.0-17.5) gm/dL Hct 36.3 L (39.0-53.0) % MCV 105.5 H (80.0-100.0) fL Plt Count 798 H (150-450) k/uL Neutrophils # 22.8 H (1.3-7.7) k/uL Monocytes # 1.1 H (0-1.0) k/uL Sodium 133 L (137-145) mmol/L BUN 8 L (9-20) mg/dL Creatinine 0.42 L 0.53 L (0.66-1.25) mg/dL Glucose 104 H (74-99) mg/dL AST 15 L (17-59) U/L Total Protein 5.0 L (6.3-8.2) g/dL Albumin 2.5 L (3.5-5.0) g/dL
[2023-01-02] MEDS: SYMBICORT 160-4.5 MCG INHALER INHALATION SCH (20:37)
[2023-01-02] MEDS ORDERED: AMOXIC-POT CLAV 875-125MG 1 EACH TAB PO SCH (21:00)
[2023-01-02] MEDS: traZODone HCL 100 MG TAB PO SCH (23:06)
[2023-01-03] MEDS: CEFEPIME 2 GM in SODIUM CHLORIDE 0.9% 100 ML IVPB SCH ×3 (03:59→20:27)
[2023-01-03] MEDS: KETOROLAC 15 MG/ML 1 ML VIAL IVP SCH ×4 (03:59→20:28)
[2023-01-03] MEDS: VANCOMYCIN 1,750 MG in SODIUM CHLORIDE 0.9% 500 ML 500 ML IVPB SCH ×3 (03:59→20:27)
[2023-01-03] MEDS: levETIRAcetam 500 MG TAB PO SCH ×2 (05:45→15:15)
[2023-01-03] MEDS: NICOTINE 21MG/24HR PATCH TRANSDERM SCH (06:58)
[2023-01-03] MEDS ORDERED: MIDAZOLAM 2 MG/2 ML VIAL ONE (07:54)
[2023-01-03] MEDS ORDERED: GLYCOPYRROLATE 0.2 MG/ML 2 ML VIAL ONE (07:54)
[2023-01-03] MEDS ORDERED: PROPOFOL 10 MG/ML 20 ML VIAL IV ONE (07:54)
[2023-01-03] MEDS ORDERED: fentaNYL (PF) 50 MCG/ML 2 ML AMP ONE (07:54)
[2023-01-03] MEDS ORDERED: LIDOCAINE 1% INJ 10MG/ML (20 ML MDV) ONE (07:54)
[2023-01-03] MEDS ORDERED: LIDOCAINE 2% (PF) 20 MG/ML 2 ML AMP INHALATION ONE (08:05)
[2023-01-03] MEDS ORDERED: IV FLUID CONTINUATION 1,000 ML IV ONE (08:18)
[2023-01-03] MEDS: ACETAMINOPHEN TAB 325 MG TAB PO SCH ×4 (08:37→22:45)
[2023-01-03] MEDS: predniSONE 10 MG TAB PO SCH (08:37)
[2023-01-03] MEDS: THIAMINE 100 MG TAB PO SCH (08:38)
[2023-01-03] MEDS: SENNOSIDES 8.6 MG TAB PO SCH ×3 (08:38→20:28)
[2023-01-03] MEDS: ESCITALOPRAM 10 MG TAB PO SCH (08:39)
[2023-01-03] MEDS: NYSTATIN 100,000 UNIT/ML SUSP 500,000 UNIT/5 ML CUP PO SCH ×4 (08:39→22:45)
[2023-01-03] MEDS: busPIRone HCl 10 MG TAB PO SCH ×3 (08:44→22:46)
--- NOTE | 2023-01-03 09:16 | OP ---
OPERATIVE REPORT DATE OF SERVICE : PROCEDURES PERFORMED: Bronchoscopy; airway examination; therapeutic lavage; BAL, right middle lobe and brushes, right middle lobe. PREOPERATIVE DIAGNOSIS: Pneumonia with parapneumonic effusion, empyema. POSTOPERATIVE DIAGNOSIS: Pneumonia with parapneumonic effusion, empyema. FIRST CRIME SCENE INVESTIGATOR: Destiney Murphy. Dr. Mejia provided general anesthesia along with JACK FRAME TENDER. The patient's procedure took place in room #1 [facility]. There were informed consent and universal timeout. After the patient was adequately sedated and being fully monitored, the bronchoscope was inserted through the right nostril. It passed through the right nasopharynx into the oropharynx, then into the hypopharynx. The hypopharyngeal structures including anterior commissure, true cords, false cords, arytenoids, piriform sinuses right and left, vallecula, and epiglottis all appeared normal. After topicalization, the bronchoscope was pushed through the glottic opening into the trachea. 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 The trachea otherwise was normal. Tracheal shagufta was sharp. There were some secretions noted within the trachea that were suctioned. Next, the right and left mainstem were topicalized. The left upper lobe proper and its 2 segments, the lingula and its 2 segments, and the left lower lobe and its 4 segments all had evidence of moderate bronchitis with thick mucoid secretions. They were suctioned with some difficulty with the aid of saline lavage. There was no dominant mass or tumor. There was some mucosal friability. There was some vascular engorgement. On the right side, the right upper lobe and its 3 segments, the right middle lobe and its 2 segments, the right lower lobe and its 5 segments were all relatively normal anatomically, but on this side, there were very thick secretions and mucus plugs. They were also suctioned with some difficulty. The mucosa was very friable and bled easily. There was vascular engorgement. There was no dominant mass or tumor, although the medial wall of the distal bronchus intermedius did appear to be a bit abnormal, maybe just some inflammation and nothing more. Anyway, the bronchoscope was wedged into the right middle lobe. We did a BAL. In addition, we brushed the medial wall of the distal bronchus intermedius. Again, the mucosa was very friable and bled easily. All the secretions were suctioned without difficulty with saline lavage. There was no immediate complication. The bronchoscope was withdrawn, and the patient will be recovered by Anesthesia and taken back to his room. JACLYN / STEPHANIE: [id number] /
[2023-01-03] MEDS: IPRATROPIUM-ALBUTEROL 3 ML NEB INHALATION SCH ×4 (10:21→20:47)
[2023-01-03] MEDS: SYMBICORT 160-4.5 MCG INHALER INHALATION SCH ×2 (10:21→20:47)
[2023-01-03 10:50] LABS: BUN/Creat Ratio 9.67 Ratio (12.00-20.00); Blood Urea Nitrogen 5.8 mg/dL (9.0-27.0); Calcium 9.4 mg/dL (8.7-10.3); Carbon Dioxide 26.9 mmol/L (21.6-31.8); Chloride 98 mmol/L (96-109); Glucose 83 mg/dL (70-110); Potassium 4.2 mmol/L (3.5-5.5); Sodium 138 mmol/L (135-145)
[2023-01-03 10:57] LABS: Basophils # (A) 0.02 X 10*3/uL (0.00-0.10); Basophils % (A) 0.1 %; Eosinophils % (A) 0.6 %; HCT 33.9 % (39.6-50.0); HGB 10.9 d/dL (13.0-17.0); Lymphocytes # (A) 2.02 X 10*3/uL (0.90-5.00); Lymphocytes % (A) 12.1 %; MCH 32.8 pg (27.0-32.0); MCHC 32.2 d/dL (32.0-37.0); MCV 102.1 FL (80.0-97.0); Mean Platelet Volume 8.6 FL (9.5-12.2); Monocytes % (A) 7.2 %; NRBC Per 100 WBC 0 X 10*3/uL (0.00-0.01); Neutrophils # (A) 13.28 X 10*3/uL (1.80-7.70); Neutrophils % (A) 79.3 %; Platelet Count 783 X 10*3/uL (140-440); RBC 3.32 X 10*6/uL (4.40-5.60); RBC Morphology Normal (Normal); RDW 13.1 % (11.5-14.5); WBC 16.73 X 10*3/uL (4.50-10.00)
--- NOTE | 2023-01-03 11:14 | P.PN ---
Subjective Progress Note Date: 01/03/23 52-year-old male who was recently discharged from this hospital, with a COPD exacerbation. The patient was discharged, and went back to [place], because of his addiction. The patient states that apparently he smelled bleach at [place], and he became very short of breath. In addition, he complained of chest tightness, wheezing, coughing, and phlegm production. He was seen in the emergency department on December 31 at 3:00 in the morning. He is seen this morning, in the emergency department, room 30. He is on 3 L of oxygen. He's not receiving any IV fluids. His chest x-ray revealed a possible right lower lobe infiltrate. He is profoundly short of breath, which is why he came back i n. White count 31.5, hemoglobin 13, hematocrit 39.6, and platelet count 900,000. Sodium 133, potassium 4.3, chlorides 99, CO2 28, BUN 15, creatinine 0.39. Studies for influenza, RSV, and coronavirus, are all negative. Chest x- ray shows worsening right lower lung airspace opacities/atelectasis, with a small effusion. Progress note dated 01/01/2023. The patient is seen today in room 155. He was seen in consultation yesterday, in the emergency department. He was admitted with a diagnosis of COPD exacerbation, and right lower lobe infiltrate. The patient's currently on 2 L of oxygen. His pro-calcitonin level was elevated 0.17. The patient had a chest x-ray ordered for tomorrow, January 02. He continues on Zosyn and vancomycin. White count is 25.6, hemoglobin 11.7, hematocrit 36.3, platelet count 798,000. Creatinine 0.43. Studies for influenza, Legionella, RSV, and coronavirus, are all negative. The patient is seen today 01/02/2023 in follow-up on the regular medical floor. He is up ambulating in his room. Awake and alert in no acute distress. Maintaining O2 saturations in the 90s on room air. He's been afebrile. Hemodynamically stable. Chest x-ray shows bilateral infiltrate and small right effusion. No pneumothorax. CT angiogram was suboptimal due to contrast bolus and breathing motion artifact. No definite pulmonary embolus. There is worsening now moderate-sized right pleural effusion, new atelectatic collapse of the right lower lobe. Also worsening consolidation and volume loss throughout the right middle lobe. Possible small pneumonic infiltrate anteromedial right midlung persist though minimally smaller. Persistent right hilar lymph node, suspect reactive measuring up to 2.4 cm. Sputum culture pending. Creatinine 0.53. Vancomycin trough 11.6. He is continued on DuoNeb inhalations, Symbicort, prednisone taper. He is continued on vancomycin and cefepime. NicoDerm patch in place. The patient is seen today 01/03/2023 in follow-up on the regular medical floor. He is awake and alert in no acute distress. Up ambulating in his room. Stable and on room air. He did undergo bronchoscopy with BAL and brushing of the right lung. Cytology, cultures and fluid analysis pending. We have requested interventional radiology to place a pigtail catheter into the right lower lung pleural effusion. Ultrasound revealed a moderate right pleural effusion with internal debris and septations. Patient culture pending. White count 16.7. Hemoglobin 10.9. MCV 102.1. Platelets 783. Sodium 138. Potassium 4.2. Bicarb 27. BUN 6. Creatinine 0.6. C-reactive protein 24.0. He remains on vancomycin and cefepime. Continue on Symbicort, DuoNeb inhalations, prednisone taper. NicoDerm patch is in place. Objective - Vital Signs Vital signs: Vital Signs Temp 97.9 F 01/03/23 08:35 Pulse 106 H 01/03/23 10:33 Resp 19 01/03/23 08:35 BP 154/94 01/03/23 08:35 Pulse Ox 93 L 01/03/23 10:24 FiO2 Intake & Output 01/02/23 01/03/23 01/03/23 18:59 06:59 18:59 Intake Total 50 Balance 50 Intake: IV 50 Other: # Voids 4 3 1 # Bowel Movements 1 - Exam GENERAL EXAM: Alert, 52-year-old male patient, ambulating in his room, on room air, comfortable in no apparent distress. HEAD: Normocephalic. EYES: Normal reaction of pupils, equal size. NOSE: Clear with pink turbinates. THROAT: No erythema or exudates. NECK: No masses, no JVD. CHEST: No chest wall deformity. LUNGS: Equal air entry with bilateral end expiratory wheeze, few scattered rhonchi more so on the right lung. CVS: S1 and S2 normal with no audible murmur, regular rhythm. ABDOMEN: No hepatosplenomegaly, normal bowel sounds, no guarding or rigidity. SPINE: No scoliosis or deformity SKIN: No rashes CENTRAL NERVOUS SYSTEM: No focal deficits, tone is normal in all 4 extremities. EXTREMITIES: There is no peripheral edema. No clubbing, no cyanosis. Peripheral pulses are intact. - Labs CBC & Chem 7: 01/03/23 06:17 01/03/23 06:17 Labs: Abnormal Lab Results - Last 24 Hours (Table) 01/03/23 01/03/23 Range/Units 06:17 06:17 WBC 16.73 H (4.50-10.00) X 10*3/uL RBC 3.32 L (4.40-5.60) X 10*6/uL Hgb 10.9 L (13.0-17.0) d/dL Hct 33.9 L (39.6-50.0) % MCV 102.1 H (80.0-97.0) FL MCH 32.8 H (27.0-32.0) pg Plt Count 783 H (140-440) X 10*3/uL MPV 8.6 L (9.5-12.2) FL Neutrophils # 13.28 H (1.80-7.70) X 10*3/uL Monocytes # 1.20 H (0.20-1.00) X 10*3/uL Anion Gap 13.10 H (4.00-12.00) mmol/L BUN 5.8 L (9.0-27.0) mg/dL BUN/Creatinine Ratio 9.67 L (12.00-20.00) Ratio C-Reactive Protein 24.00 H (0.00-0.80) mg/dL Microbiology - Last 24 Hours (Table) 01/01/23 07:00 Gram Stain - Preliminary Sputum Assessment and Plan Assessment: Acute hypoxemic respiratory failure, secondary to COPD exacerbation, complicated by right-sided pneumonia. He did undergo bronchoscopy with BAL and brushings on the right lung today 01/03/2023. Ultrasound of the right chest revealed moderate pleural effusion with internal debris and septations. Ongoing tobacco use with nicotine addiction. Chronic alcohol abuse. History of depression. Homelessness. Plan: The patient was seen and evaluated Ultrasound of the chest, labs and medications reviewed Requested interventional radiology to place a pigtail catheter in the right chest He did undergo bronchoscopy with BAL impressions today Cytology, cultures and fluid analysis pending Continued on vancomycin and cefepime Continue bronchodilators, steroids We will continue to follow This patient was seen independently by the nurse practitioner I have personally seen and examined the patient, performed the documentation and the assessment and plan as written. Number of minutes spent on the visit: 24.
--- NOTE | 2023-01-03 13:04 | P.PN ---
Subjective Progress Note Date: 01/03/23 Patient.52-year-old male came in with comments of shortness of breath does have history of COPD quit smoking about a week ago patient is a drug rehabitation program at this time. Chest x-ray was done which showed increasing infiltrate on the right side patient was on third-generation supposed for him for pneumonia as an outpatient. Patient does have wheezing which appears to be more of stridor. Patient does have oral thrush on exam. Patient is oxygen usually doesn't use any oxygen at home. Pro-calcitonin was ordered patient has leukocytosis with WBC count of 30,000 although patient is on steroids as an outpatient. Patient believes inhalational bleach she at the facility may have caused his COPD exacerbation. Patient is presently nicotine patches. Patient doesn't have any fever 01/01/2023 Patient seen and evaluated in follow-up today with pulmonary following. Patient continued on oral steroids now for COPD exacerbation along with breathing treatments. Repeat labs pending at this time and pro-calcitonin was 0.17. Patient is continued on vancomycin and Zosyn and will continue for now with attempting to obtain a sputum culture. Sputum culture was sent and pending at this time. Patient continues to have dyspnea and right side pain with inspiration will add incentive spirometer and also consult infectious disease and appreciate input and recommendations. Patient is currently afebrile with no reported chest pain or palpitations. Patient is tolerating diet and denies any nausea or vomiting. Patient reports is up and walking to the bathroom and becomes dyspneic and has to rest. Patient is continued on 2 L via nasal cannula. 01/02/2023 Patient is seen in follow-up today with pulmonary and infectious disease following. Patient continues to report right-sided lung pain and chest wall pain with difficulty breathing and taking deep breaths. Patient is maintained on antibiotics with infectious disease following and has ordered repeat sputum culture which was sent and pending. Infectious disease recommending awaiting cultures and continue on IV antibiotics before transitioning to oral to await cultures. Patient is also continued on nystatin for thrush which is improving. Patient is off oxygen and uses it as needed although maintaining oxygen saturation above 90% on room air. Patient with incentive spirometer at bedside instructed to continue using at least 10 times every hour while awake. Patient is being considered for discharge by pulmonary although still concerned with patient still being symptomatic and will obtain repeat CT chest for further ev aluation. 01/03/2023 Patient is evaluated today ambulating in the hallways. Patient is status post bronchoscopy this AM with BAL and suctioning of mucous plug. 16.3 today additionally his sodium has normalized at 138. His CRP was elevated at 24. He remains on antibiotics in the form of IV vancomycin. IV cefepime has been added. Pulmonary and ID are currently following with further recommendations regarding empyema. Review of systems: Constitutional: No reports of fatigue, fever, or chills Cardiovascular: No reports of chest pain or palpitations Respiratory: reports of shortness of breath with cough and right-sided rib pain with deep inspiration and becomes more short of breath with exertion GI: No reports of nausea, vomiting, or diarrhea : No reports of dysuria or retention Neurovascular: No reports of weakness or numbness All medications have been reviewed PHYSICAL EXAMINATION: GENERAL: The patient is alert and oriented x3, not in any acute distress. Appears to be slowly clinically improving and on room air. Well developed, well nourished. HEENT: Pupils are round and equally reacting to light. EOMI. No scleral icterus. No conjunctival pallor. Normocephalic, atraumatic. No pharyngeal erythema. No thyromegaly. CARDIOVASCULAR: S1 and S2 present. No murmurs, rubs, or gallops. PULMONARY: Diminished breath sounds bilaterally otherwise Chest is clear to auscultation. There is some faint crackles noted at the bases more so on the right ABDOMEN: Soft, nontender, nondistended, normoactive bowel sounds. No palpable organomegaly. MUSCULOSKELETAL: No joint swelling or deformity. EXTREMITIES: No cyanosis, clubbing, or pedal edema. NEUROLOGICAL: Gross neurological examination did not reveal any focal deficits. SKIN: No rashes. Assessment: -COPD with acute exacerbation -Acute hypoxic respiratory failure multifactorial secondary to pneumonia as well as COPD exacerbation -worsening pneumonia , community-acquired, repeat sputum cultures obtained and pending. patient will be switched to cefepime and vancomycin -Moderate-sized right pleural effusion with new atelectatic collapse of the right lower lobe -Seizure disorder, continued on home medications -Alcohol abuse and nicotine abuse patient is presently at drug rehabitation program at [place] with plans to return there on discharge -DVT prophylaxis: Lovenox -GI prophylaxis -Full code Plan: Pulmonary following and continued on DuoNeb treatments along with oral steroids and 2 L of oxygen via nasal cannula. Patient currently on room air weaned off oxygen and reports using intermittently. Patient will continue on cefepime and vancomycin with infectious disease following and await repeat sputum culture that has been sent. Patient is status post bronchoscopy with cultures pending also. Encouraged increased activity as tolerated Encouraged incentive spirometer use at least 10 times every hour while awake Will follow-up on repeat labs in a.m. Plan is to return to [place] when stable to complete his alcohol rehab Patient is not actively withdrawing and will not require CIWA protocol The impression and plan of care has been dictated by Jacquelyn Roberts Nurse Practitioner as directed. Dr. Neo MD I have performed a history and physical examination and medical decision making of this patient, discussed the same with the dictator, and agree with the dictators assessment and plan as written, documented as a scribe. Based on total visit time, I have performed more than 50% of this visit. Objective - Vital Signs Vital signs: Vital Signs Temp 97.9 F 01/03/23 08:35 Pulse 106 H 01/03/23 10:33 Resp 19 01/03/23 08:35 BP 154/94 01/03/23 08:35 Pulse Ox 93 L 01/03/23 10:24 FiO2 Intake & Output 01/02/23 01/03/23 01/03/23 18:59 06:59 18:59 Intake Total 50 Balance 50 Intake: IV 50 Other: # Voids 4 3 1 # Bowel Movements 1 - Labs CBC & Chem 7: 01/03/23 06:17 01/03/23 06:17 Labs: Abnormal Lab Results - Last 24 Hours (Table) 01/03/23 01/03/23 Range/Units 06:17 06:17 WBC 16.73 H (4.50-10.00) X 10*3/uL RBC 3.32 L (4.40-5.60) X 10*6/uL Hgb 10.9 L (13.0-17.0) d/dL Hct 33.9 L (39.6-50.0) % MCV 102.1 H (80.0-97.0) FL MCH 32.8 H (27.0-32.0) pg Plt Count 783 H (140-440) X 10*3/uL MPV 8.6 L (9.5-12.2) FL Neutrophils # 13.28 H (1.80-7.70) X 10*3/uL Monocytes # 1.20 H (0.20-1.00) X 10*3/uL Anion Gap 13.10 H (4.00-12.00) mmol/L BUN 5.8 L (9.0-27.0) mg/dL BUN/Creatinine Ratio 9.67 L (12.00-20.00) Ratio C-Reactive Protein 24.00 H (0.00-0.80) mg/dL Microbiology - Last 24 Hours (Table) 01/01/23 07:00 Gram Stain - Final Sputum Sputum Culture - Final Assessment and Plan Time with Patient: Less than 30
[2023-01-03] MEDS: HEPARIN SODIUM,PORCINE 5,000 UNIT/ML 1 ML VIAL SQ SCH (20:27)
--- NOTE | 2023-01-03 22:15 | P.PN ---
Subjective Progress Note Date: 01/03/23 Principal diagnosis: Pneumonia Patient is a 52-year-old male with a past medical his significant for COPD seizure disorder psoriasis current everyday smoker presenting to the hospital for evaluation of increasing shortness of breath also have a productive cough and right-sided chest pain. Pt is s/p bronchoscopy and BAL completed 01/03/2023 On today's evaluation that is 01/03/2023, the patient denies any fever or any chills, the patient is breathing comfortably on room air , the patient still c/o right sided chest pain which has slightly decreased in intensity, shortness of breath and no significant cough, patient denies abdominal pain, no nausea/vomiting or diarrhea Patient did have white count 16.73 , creatinine 0.6, cultures are pending Objective - Vital Signs Vital signs: Vital Signs Temp 97.9 F 01/03/23 08:35 Pulse 111 H 01/03/23 10:21 Resp 19 01/03/23 08:35 BP 154/94 01/03/23 08:35 Pulse Ox 93 L 01/03/23 10:24 FiO2 Intake & Output 01/02/23 01/03/23 01/03/23 18:59 06:59 18:59 Intake Total 50 Balance 50 Intake: IV 50 Other: # Voids 4 3 1 # Bowel Movements 1 - Exam GENERAL DESCRIPTION: Middle-aged male lying in bed in no distress RESPIRATORY SYSTEM: Unlabored breathing , decreased breath sounds at bases HEART: S1 S2 regular rate and rhythm , ABDOMEN: Soft , no tenderness EXTREMITIES: No edema feet - Labs CBC & Chem 7: 01/03/23 06:17 01/03/23 06:17 Labs: Microbiology - Last 24 Hours (Table) 01/01/23 07:00 Gram Stain - Preliminary Sputum Assessment and Plan (1) Pneumonia Current Visit: No Status: Acute Code(s): J18.9 - PNEUMONIA, UNSPECIFIED ORGANISM SNOMED Code(s): 509801779 Plan: 1patient presented to hospital with increasing shortness of breath and a cough and evidence of pneumonia on the chest x-ray did have elevated white count and procalcitonin patient did have history of COPD has been in and out of the [facility] we need to cover for resistant gram-positive as well as gram-negative pathogen) did have a previous history of MRSA infection 2-patient did have repeat CT concerning for loculated effusion/empyema for which IR has been consulted for pigtail catheter placement , fluid should be sent for cultures and will follow BAL cultures 3-patient to continue with the vancomycin and cefepime while waiting for the cultures to finalize Dictation was produced using [employer] dictation software. please excuse any grammatical, word or spelling errors. Time with Patient: Less than 30
[2023-01-03] MEDS: traZODone HCL 100 MG TAB PO SCH (22:46)
[2023-01-04] MEDS: KETOROLAC 15 MG/ML 1 ML VIAL IVP SCH ×4 (03:09→21:21)
[2023-01-04] MEDS: CEFEPIME 2 GM in SODIUM CHLORIDE 0.9% 100 ML IVPB SCH ×2 (03:09→11:19)
[2023-01-04] MEDS: VANCOMYCIN 1,750 MG in SODIUM CHLORIDE 0.9% 500 ML 500 ML IVPB SCH ×2 (03:10→11:19)
[2023-01-04] MEDS: levETIRAcetam 500 MG TAB PO SCH ×2 (06:41→15:08)
[2023-01-04] MEDS: ESCITALOPRAM 10 MG TAB PO SCH (06:42)
[2023-01-04] MEDS: NICOTINE 21MG/24HR PATCH TRANSDERM SCH ×2 (06:42→06:43)
[2023-01-04] MEDS: HEPARIN SODIUM,PORCINE 5,000 UNIT/ML 1 ML VIAL SQ SCH ×3 (08:17→21:25)
[2023-01-04] MEDS: SENNOSIDES 8.6 MG TAB PO SCH ×2 (08:17→21:21)
[2023-01-04] MEDS: ACETAMINOPHEN TAB 325 MG TAB PO SCH ×4 (08:18→21:22)
[2023-01-04] MEDS: busPIRone HCl 10 MG TAB PO SCH ×3 (08:19→21:20)
[2023-01-04] MEDS: NYSTATIN 100,000 UNIT/ML SUSP 500,000 UNIT/5 ML CUP PO SCH ×4 (08:19→21:20)
[2023-01-04] MEDS: THIAMINE 100 MG TAB PO SCH (08:19)
[2023-01-04] MEDS: predniSONE 10 MG TAB PO SCH (08:19)
[2023-01-04] MEDS: IPRATROPIUM-ALBUTEROL 3 ML NEB INHALATION SCH ×4 (08:24→21:08)
[2023-01-04] MEDS: SYMBICORT 160-4.5 MCG INHALER INHALATION SCH ×2 (08:24→21:08)
[2023-01-04] MEDS ORDERED: VANCOMYCIN TROUGH DUE 1 EACH MISC MISCELLANE ONE (11:00)
[2023-01-04 11:03] LABS: African American GFR (CKD) >90 (>60 ml/min/1.73 sqM); Non-African American GFR(CKD) >90 (>60 ml/min/1.73 sqM)
--- NOTE | 2023-01-04 11:04 | P.PN ---
Subjective Progress Note Date: 01/04/23 52-year-old male who was recently discharged from this hospital, with a COPD exacerbation. The patient was discharged, and went back to [facility], because of his addiction. The patient states that apparently he smelled bleach at [facility], and he became very short of breath. In addition, he complained of chest tightness, wheezing, coughing, and phlegm production. He was seen in the emergency department on December 31 at 3:00 in the morning. He is seen this morning, in the emergency department, room 30. He is on 3 L of oxygen. He's not receiving any IV fluids. His chest x-ray revealed a possible right lower lobe infiltrate. He is profoundly short of breath, which is why he came back i n. White count 31.5, hemoglobin 13, hematocrit 39.6, and platelet count 900,000. Sodium 133, potassium 4.3, chlorides 99, CO2 28, BUN 15, creatinine 0.39. Studies for influenza, RSV, and coronavirus, are all negative. Chest x- ray shows worsening right lower lung airspace opacities/atelectasis, with a small effusion. Progress note dated 01/01/2023. The patient is seen today in room 155. He was seen in consultation yesterday, in the emergency department. He was admitted with a diagnosis of COPD exacerbation, and right lower lobe infiltrate. The patient's currently on 2 L of oxygen. His pro-calcitonin level was elevated 0.17. The patient had a chest x-ray ordered for tomorrow, January 02. He continues on Zosyn and vancomycin. White count is 25.6, hemoglobin 11.7, hematocrit 36.3, platelet count 798,000. Creatinine 0.43. Studies for influenza, Legionella, RSV, and coronavirus, are all negative. The patient is seen today 01/02/2023 in follow-up on the regular medical floor. He is up ambulating in his room. Awake and alert in no acute distress. Maintaining O2 saturations in the 90s on room air. He's been afebrile. Hemodynamically stable. Chest x-ray shows bilateral infiltrate and small right effusion. No pneumothorax. CT angiogram was suboptimal due to contrast bolus and breathing motion artifact. No definite pulmonary embolus. There is worsening now moderate-sized right pleural effusion, new atelectatic collapse of the right lower lobe. Also worsening consolidation and volume loss throughout the right middle lobe. Possible small pneumonic infiltrate anteromedial right midlung persist though minimally smaller. Persistent right hilar lymph node, suspect reactive measuring up to 2.4 cm. Sputum culture pending. Creatinine 0.53. Vancomycin trough 11.6. He is continued on DuoNeb inhalations, Symbicort, prednisone taper. He is continued on vancomycin and cefepime. NicoDerm patch in place. The patient is seen today 01/03/2023 in follow-up on the regular medical floor. He is awake and alert in no acute distress. Up ambulating in his room. Stable and on room air. He did undergo bronchoscopy with BAL and brushing of the right lung. Cytology, cultures and fluid analysis pending. We have requested interventional radiology to place a pigtail catheter into the right lower lung pleural effusion. Ultrasound revealed a moderate right pleural effusion with internal debris and septations. Patient culture pending. White count 16.7. Hemoglobin 10.9. MCV 102.1. Platelets 783. Sodium 138. Potassium 4.2. Bicarb 27. BUN 6. Creatinine 0.6. C-reactive protein 24.0. He remains on vancomycin and cefepime. Continue on Symbicort, DuoNeb inhalations, prednisone taper. NicoDerm patch is in place. The patient is seen today 01/04/2023 in follow-up on the regular medical floor. He is awake and alert in no acute distress. Up ambulating in his room. Up in the shower. No worsening shortness of breath, cough or congestion. Denies to maintain good O2 saturations in the 90s on room air. He's been afebrile. Hemodynamically stable. Sputum culture revealed no growth. Bronchial wash cultures and cytology are pending. Today's labs are pending. He remains on vancomycin and cefepime. Continue on bronchodilators and a prednisone taper. NicoDerm patch in place. Plan is to have interventional radiology place a pigtail catheter to the right chest. Objective - Vital Signs Vital signs: Vital Signs Temp 98 F 01/04/23 07:30 Pulse 76 01/04/23 08:38 Resp 18 01/04/23 07:30 BP 154/96 01/04/23 07:30 Pulse Ox 96 01/04/23 08:25 FiO2 Intake & Output 01/03/23 01/04/23 01/04/23 18:59 06:59 18:59 Intake Total 50 Balance 50 Intake: IV 50 Other: Voiding Method Toilet # Voids 1 0 1 - Exam GENERAL EXAM: Alert, pleasant 52-year-old male patient, on room air, comfortable in no apparent distress. HEAD: Normocephalic. EYES: Normal reaction of pupils, equal size. NOSE: Clear with pink turbinates. THROAT: No erythema or exudates. NECK: No masses, no JVD. CHEST: No chest wall deformity. LUNGS: Equal air entry with bilateral end expiratory wheeze, few scattered rhonchi more so on the right lung. CVS: S1 and S2 normal with no audible murmur, regular rhythm. ABDOMEN: No hepatosplenomegaly, normal bowel sounds, no guarding or rigidity. SPINE: No scoliosis or deformity SKIN: No rashes CENTRAL NERVOUS SYSTEM: No focal deficits, tone is normal in all 4 extremities. EXTREMITIES: There is no peripheral edema. No clubbing, no cyanosis. Peripheral pulses are intact. - Labs CBC & Chem 7: 01/03/23 06:17 01/03/23 06:17 Labs: Abnormal Lab Results - Last 24 Hours (Table) 01/03/23 Range/Units 06:17 WBC 16.73 H (4.50-10.00) X 10*3/uL RBC 3.32 L (4.40-5.60) X 10*6/uL Hgb 10.9 L (13.0-17.0) d/dL Hct 33.9 L (39.6-50.0) % MCV 102.1 H (80.0-97.0) FL MCH 32.8 H (27.0-32.0) pg Plt Count 783 H (140-440) X 10*3/uL MPV 8.6 L (9.5-12.2) FL Neutrophils # 13.28 H (1.80-7.70) X 10*3/uL Monocytes # 1.20 H (0.20-1.00) X 10*3/uL Microbiology - Last 24 Hours (Table) 01/01/23 07:00 Gram Stain - Final Sputum Sputum Culture - Final Assessment and Plan Assessment: Acute hypoxemic respiratory failure, secondary to COPD exacerbation, complicated by right-sided pneumonia. He did undergo bronchoscopy with BAL and brushings on the right lung 01/03/2023. Ultrasound of the right chest revealed moderate pleural effusion with internal debris and septations. Plan is for interventional radiology to place a pigtail catheter to the right chest. Ongoing tobacco use with nicotine addiction. Chronic alcohol abuse. History of depression. Homelessness. Plan: The patient was seen and evaluated Labs and medications reviewed Requested interventional radiology to place a pigtail catheter in the right chest He did undergo bronchoscopy with BAL Cytology, cultures and fluid analysis pending Continued on vancomycin and cefepime Continue bronchodilators, steroids We will continue to follow This patient was seen independently by the nurse practitioner I have personally seen and examined the patient, performed the documentation and the assessment and plan as written. Number of minutes spent on the visit: 22.
[2023-01-04 13:27] LABS: Basophils # (A) 0.02 X 10*3/uL (0.00-0.10); Basophils % (A) 0.1 %; Eosinophils # (A) 0.14 X 10*3/uL (0.04-0.35); Eosinophils % (A) 0.8 %; HCT 32.1 % (39.6-50.0); HGB 10.3 d/dL (13.0-17.0); Lymphocytes # (A) 2.53 X 10*3/uL (0.90-5.00); Lymphocytes % (A) 14.2 %; MCH 32.6 pg (27.0-32.0); MCHC 32.1 d/dL (32.0-37.0); MCV 101.6 FL (80.0-97.0); Mean Platelet Volume 8.9 FL (9.5-12.2); Monocytes # (A) 1.17 X 10*3/uL (0.20-1.00); Monocytes % (A) 6.6 %; NRBC Per 100 WBC 0 X 10*3/uL (0.00-0.01); Neutrophils # (A) 13.77 X 10*3/uL (1.80-7.70); Neutrophils % (A) 77.5 %; Platelet Count 767 X 10*3/uL (140-440); RBC 3.16 X 10*6/uL (4.40-5.60); WBC 17.77 X 10*3/uL (4.50-10.00)
[2023-01-04 13:29] LABS: BUN/Creat Ratio 12.17 Ratio (12.00-20.00); Blood Urea Nitrogen 7.3 mg/dL (9.0-27.0); Calcium 9.4 mg/dL (8.7-10.3); Carbon Dioxide 25.8 mmol/L (21.6-31.8); Chloride 100 mmol/L (96-109); Glucose 81 mg/dL (70-110); Potassium 4.2 mmol/L (3.5-5.5); Sodium 137 mmol/L (135-145)
--- NOTE | 2023-01-04 15:07 | P.PN ---
Subjective Progress Note Date: 01/04/23 Principal diagnosis: Pneumonia Patient is a 52-year-old male with a past medical his significant for COPD seizure disorder psoriasis current everyday smoker presenting to the hospital for evaluation of increasing shortness of breath also have a productive cough and right-sided chest pain. Pt is s/p bronchoscopy and BAL completed 01/03/2023 On today's evaluation that is 01/04/2023, the patient remains to be afebrile, the patient is breathing comfortably on room air without the need for supplemental oxygen , the patient still complaining of right-sided chest pain h owever is some improvement and denies any worsening cough, patient denies nausea/vomiting or diarrhea and denies any abdominal pain Patient did have white count is slightly up to 17.77 today, creatinine 0.51, BAL cultures are pending Objective - Vital Signs Vital signs: Vital Signs Temp 98.4 F 01/04/23 14:00 Pulse 96 01/04/23 14:00 Resp 18 01/04/23 14:00 BP 152/92 01/04/23 14:00 Pulse Ox 92 L 01/04/23 14:00 FiO2 Intake & Output 01/03/23 01/04/23 01/04/23 18:59 06:59 18:59 Intake Total 50 Balance 50 Intake: IV 50 Other: Voiding Method Toilet # Voids 1 0 1 - Exam GENERAL DESCRIPTION: Middle-aged male lying in bed in no distress RESPIRATORY SYSTEM: Unlabored breathing , decreased breath sounds at bases HEART: S1 S2 regular rate and rhythm , ABDOMEN: Soft , no tenderness EXTREMITIES: No edema feet - Labs CBC & Chem 7: 01/04/23 06:53 01/04/23 10:30 Labs: Abnormal Lab Results - Last 24 Hours (Table) 01/04/23 01/04/23 01/04/23 Range/Units 06:53 06:53 10:30 WBC 17.77 H (4.50-10.00) X 10*3/uL RBC 3.16 L (4.40-5.60) X 10*6/uL Hgb 10.3 L (13.0-17.0) d/dL Hct 32.1 L (39.6-50.0) % MCV 101.6 H (80.0-97.0) FL MCH 32.6 H (27.0-32.0) pg Plt Count 767 H (140-440) X 10*3/uL MPV 8.9 L (9.5-12.2) FL Neutrophils # 13.77 H (1.80-7.70) X 10*3/uL Monocytes # 1.17 H (0.20-1.00) X 10*3/uL BUN 7.3 L (9.0-27.0) mg/dL Creatinine 0.51 L (0.66-1.25) mg/dL Microbiology - Last 24 Hours (Table) 01/01/23 07:00 Gram Stain - Final Sputum Sputum Culture - Final Assessment and Plan (1) Pneumonia Current Visit: No Status: Acute Code(s): J18.9 - PNEUMONIA, UNSPECIFIED ORGANISM SNOMED Code(s): 655314115 Plan: 1patient presented to hospital with increasing shortness of breath and a cough and evidence of pneumonia on the chest x-ray did have elevated white count and procalcitonin patient did have history of COPD has been in and out of the hospital we need to cover for resistant gram-positive as well as gram-negative pathogen) did have a previous history of MRSA infection 2-patient did have repeat CT concerning for loculated effusion/empyema for which IR has been consulted for pigtail catheter placement , fluid should be sent for cultures and will follow BAL cultures 3-patient sputum culture had been negative for any resistant pathogen, BAL cultures are pending 4-we will discontinue cefepime and vancomycin started patient on Unasyn and monitor clinical course closely Dictation was produced using [employer] dictation software. please excuse any grammatical, word or spelling errors. Time with Patient: Less than 30
[2023-01-04] MEDS: guaiFENesin-DM 100-10MG/5ML 10 ML CUP PO PRN (17:00)
[2023-01-04] MEDS: AMPICILLIN-SULBACTAM 3 GM in SODIUM CHLORIDE 0.9% 100 ML IVPB SCH ×2 (17:02→23:07)
[2023-01-04 20:37] LABS: Appearance,BF Cloudy (Clear); RBC, Body Fluid 915 /UL (0-2000)
--- NOTE | 2023-01-04 21:38 | P.PN ---
Subjective Progress Note Date: 01/04/23 Patient.52-year-old male came in with comments of shortness of breath does have history of COPD quit smoking about a week ago patient is a drug rehabitation program at this time. Chest x-ray was done which showed increasing infiltrate on the right side patient was on third-generation supposed for him for pneumonia as an outpatient. Patient does have wheezing which appears to be more of stridor. Patient does have oral thrush on exam. Patient is oxygen usually doesn't use any oxygen at home. Pro-calcitonin was ordered patient has leukocytosis with WBC count of 30,000 although patient is on steroids as an outpatient. Patient believes inhalational bleach she at the facility may have caused his COPD exacerbation. Patient is presently nicotine patches. Patient doesn't have any fever 01/01/2023 Patient seen and evaluated in follow-up today with pulmonary following. Patient continued on oral steroids now for COPD exacerbation along with breathing treatments. Repeat labs pending at this time and pro-calcitonin was 0.17. Patient is continued on vancomycin and Zosyn and will continue for now with attempting to obtain a sputum culture. Sputum culture was sent and pending at this time. Patient continues to have dyspnea and right side pain with inspiration will add incentive spirometer and also consult infectious disease and appreciate input and recommendations. Patient is currently afebrile with no reported chest pain or palpitations. Patient is tolerating diet and denies any nausea or vomiting. Patient reports is up and walking to the bathroom and becomes dyspneic and has to rest. Patient is continued on 2 L via nasal cannula. 01/02/2023 Patient is seen in follow-up today with pulmonary and infectious disease following. Patient continues to report right-sided lung pain and chest wall pain with difficulty breathing and taking deep breaths. Patient is maintained on antibiotics with infectious disease following and has ordered repeat sputum culture which was sent and pending. Infectious disease recommending awaiting cultures and continue on IV antibiotics before transitioning to oral to await cultures. Patient is also continued on nystatin for thrush which is improving. Patient is off oxygen and uses it as needed although maintaining oxygen saturation above 90% on room air. Patient with incentive spirometer at bedside instructed to continue using at least 10 times every hour while awake. Patient is being considered for discharge by pulmonary although still concerned with patient still being symptomatic and will obtain repeat CT chest for further ev aluation. 01/03/2023 Patient is evaluated today ambulating in the hallways. Patient is status post bronchoscopy this AM with BAL and suctioning of mucous plug. 16.3 today additionally his sodium has normalized at 138. His CRP was elevated at 24. He remains on antibiotics in the form of IV vancomycin. IV cefepime has been added. Pulmonary and ID are currently following with further recommendations regarding empyema. 01/04/2023 Patient today states his breathing has improved he has been weaned to room air. Continues to report significant pain and discomfort to the right anterior ribcage. Lungs sounds are diminished at the right base. His white count is 17.77 today. Antibiotics have been adjusted to IV unasyn. Sputum culture is negative. Pending bronch washings. He is scheduled to undergo right sided chest tube placement with IR tomorrow for the empyema. Review of systems: Constitutional: No reports of fatigue, fever, or chills Cardiovascular: No reports of chest pain or palpitations Respiratory: reports of shortness of breath with cough and right-sided rib pain with deep inspiration and becomes more short of breath with exertion GI: No reports of nausea, vomiting, or diarrhea : No reports of dysuria or retention Neurovascular: No reports of weakness or numbness All medications have been reviewed PHYSICAL EXAMINATION: GENERAL: The patient is alert and oriented x3, not in any acute distress. Appears to be slowly clinically improving and on room air. Well developed, well nourished. HEENT: Pupils are round and equally reacting to light. EOMI. No scleral icterus. No conjunctival pallor. Normocephalic, atraumatic. No pharyngeal erythema. No thyromegaly. CARDIOVASCULAR: S1 and S2 present. No murmurs, rubs, or gallops. PULMONARY: Diminished breath sounds bilaterally otherwise Chest is clear to auscultation. There is some faint crackles noted at the bases more so on the right ABDOMEN: Soft, nontender, nondistended, normoactive bowel sounds. No palpable or ganomegaly. MUSCULOSKELETAL: No joint swelling or deformity. EXTREMITIES: No cyanosis, clubbing, or pedal edema. NEUROLOGICAL: Gross neurological examination did not reveal any focal deficits. SKIN: No rashes. Assessment: -COPD with acute exacerbation -Acute hypoxic respiratory failure multifactorial secondary to pneumonia as well as COPD exacerbation -worsening pneumonia , community-acquired, repeat sputum cultures are negative. S/P bronchoscopy and BAL. Patient remains on IV unasyn. -Moderate-sized right pleural effusion with new atelectatic collapse of the right lower lobe -Seizure disorder, continued on home medications -Alcohol abuse and nicotine abuse patient is presently at drug rehabitation program at [facility] with plans to return there on discharge -DVT prophylaxis: Lovenox -GI prophylaxis -Full code Plan: Pulmonary following and continued on DuoNeb treatments along with oral steroids and 2 L of oxygen via nasal cannula. Patient currently on room air weaned off o xygen. ID following and patient continues on IV unasyn. Patient is status post bronchoscopy with cultures pending also. Scheduled to undergo right sided chest tube placement with IR tomorrow. Encouraged increased activity as tolerated Encouraged incentive spirometer use at least 10 times every hour while awake Will follow-up on repeat labs in a.m. Plan is to return to [facility] when stable to complete his alcohol rehab Patient is not actively withdrawing and will not require CIWA protocol The impression and plan of care has been dictated by Jacquelyn Roberts, Nurse Practitioner as directed. Dr. Neo MD I have performed a history and physical examination and medical decision making of this patient, discussed the same with the dictator, and agree with the dictators assessment and plan as written, documented as a scribe. Based on total visit time, I have performed more than 50% of this visit. Objective - Vital Signs Vital signs: Vital Signs Temp 98.3 F 01/04/23 19:10 Pulse 82 01/04/23 21:19 Resp 18 01/04/23 19:10 BP 146/95 01/04/23 19:10 Pulse Ox 96 01/04/23 19:10 FiO2 Intake & Output 01/04/23 01/04/23 01/05/23 06:59 18:59 06:59 Other: Voiding Method Toilet # Voids 0 4 - Labs CBC & Chem 7: 01/04/23 06:53 01/04/23 10:30 Labs: Abnormal Lab Results - Last 24 Hours (Table) 01/03/23 01/04/23 01/04/23 Range/Units 08:00 06:53 06:53 WBC 17.77 H (4.50-10.00) X 10*3/uL RBC 3.16 L (4.40-5.60) X 10*6/uL Hgb 10.3 L (13.0-17.0) d/dL Hct 32.1 L (39.6-50.0) % MCV 101.6 H (80.0-97.0) FL MCH 32.6 H (27.0-32.0) pg Plt Count 767 H (140-440) X 10*3/uL MPV 8.9 L (9.5-12.2) FL Neutrophils # 13.77 H (1.80-7.70) X 10*3/uL Monocytes # 1.17 H (0.20-1.00) X 10*3/uL BUN 7.3 L (9.0-27.0) mg/dL Creatinine (0.66-1.25) mg/dL Fluid Appearance Cloudy A (Clear) 01/04/23 Range/Units 10:30 WBC (4.50-10.00) X 10*3/uL RBC (4.40-5.60) X 10*6/uL Hgb (13.0-17.0) d/dL Hct (39.6-50.0) % MCV (80.0-97.0) FL MCH (27.0-32.0) pg Plt Count (140-440) X 10*3/uL MPV (9.5-12.2) FL Neutrophils # (1.80-7.70) X 10*3/uL Monocytes # (0.20-1.00) X 10*3/uL BUN (9.0-27.0) mg/dL Creatinine 0.51 L (0.66-1.25) mg/dL Fluid Appearance (Clear) Assessment and Plan Time with Patient: Less than 30
[2023-01-04] MEDS: traZODone HCL 100 MG TAB PO SCH (23:07)
[2023-01-05] MEDS: KETOROLAC 15 MG/ML 1 ML VIAL IVP SCH ×4 (02:22→21:22)
[2023-01-05] MEDS: guaiFENesin-DM 100-10MG/5ML 10 ML CUP PO PRN (03:18)
[2023-01-05] MEDS: AMPICILLIN-SULBACTAM 3 GM in SODIUM CHLORIDE 0.9% 100 ML IVPB SCH ×3 (05:48→18:03)
[2023-01-05] MEDS: levETIRAcetam 500 MG TAB PO SCH ×2 (05:58→16:17)
[2023-01-05] MEDS: NICOTINE 21MG/24HR PATCH TRANSDERM SCH (05:58)
[2023-01-05] MEDS: ESCITALOPRAM 10 MG TAB PO SCH (05:59)
[2023-01-05 06:09] LABS: African American GFR (CKD) >90 (>60 ml/min/1.73 sqM); Non-African American GFR(CKD) >90 (>60 ml/min/1.73 sqM)
[2023-01-05] MEDS: SYMBICORT 160-4.5 MCG INHALER INHALATION SCH ×2 (08:11→20:43)
[2023-01-05] MEDS: IPRATROPIUM-ALBUTEROL 3 ML NEB INHALATION SCH ×5 (08:11→20:43)
[2023-01-05] MEDS: THIAMINE 100 MG TAB PO SCH (09:00)
[2023-01-05] MEDS: ACETAMINOPHEN TAB 325 MG TAB PO SCH ×4 (09:00→21:21)
[2023-01-05] MEDS: predniSONE 10 MG TAB PO SCH (09:00)
[2023-01-05] MEDS: busPIRone HCl 10 MG TAB PO SCH ×3 (09:00→21:23)
[2023-01-05] MEDS: SENNOSIDES 8.6 MG TAB PO SCH ×2 (09:01→21:24)
[2023-01-05] MEDS: NYSTATIN 100,000 UNIT/ML SUSP 500,000 UNIT/5 ML CUP PO SCH ×4 (09:01→21:21)
[2023-01-05 09:04] LABS: Basophils # (A) 0.01 X 10*3/uL (0.00-0.10); Basophils % (A) 0.1 %; Eosinophils # (A) 0.17 X 10*3/uL (0.04-0.35); HCT 33.3 % (39.6-50.0); HGB 10.8 d/dL (13.0-17.0); Lymphocytes # (A) 2.53 X 10*3/uL (0.90-5.00); Lymphocytes % (A) 14.4 %; MCH 32.8 pg (27.0-32.0); MCHC 32.4 d/dL (32.0-37.0); MCV 101.2 FL (80.0-97.0); Mean Platelet Volume 8.6 FL (9.5-12.2); Monocytes # (A) 1.25 X 10*3/uL (0.20-1.00); Monocytes % (A) 7.1 %; NRBC Per 100 WBC 0 X 10*3/uL (0.00-0.01); Neutrophils # (A) 13.48 X 10*3/uL (1.80-7.70); Neutrophils % (A) 76.4 %; Platelet Count 832 X 10*3/uL (140-440); RBC 3.29 X 10*6/uL (4.40-5.60); RDW 13.2 % (11.5-14.5); WBC 17.61 X 10*3/uL (4.50-10.00)
[2023-01-05] MEDS: HEPARIN SODIUM,PORCINE 5,000 UNIT/ML 1 ML VIAL SQ SCH ×2 (09:07→21:23)
[2023-01-05 10:38] LABS: Nucleated Cells, Body Fluid 465 /UL
[2023-01-05] MEDS ORDERED: LIDOCAINE 1% INJ 10MG/ML (20 ML MDV) ONE (11:55)
--- NOTE | 2023-01-05 13:49 | XR ---
EXAMINATION TYPE: XR chest 1V portable DATE OF EXAM: 01/05/2023 1:21 PM COMPARISON: Chest radiographs from 01/02/2023 TECHNIQUE: XR chest 1V portable Portable AP radiograph of the chest. CLINICAL INDICATION:Male, 52 years old with history of sp thoracentesis; FINDINGS: Lungs/Pleura: Left lung is clear. Small right pleural effusion status post thoracentesis. No sizable pneumothorax. Right mid and lower lung airspace opacities. Pulmonary vascularity: Unremarkable. Heart/mediastinum: Cardiomediastinal silhouette is unremarkable. Musculoskeletal: No acute osseous pathology. IMPRESSION: 1. Small right pleural effusion status post thoracentesis. No sizable pneumothorax. 2. Right mid and lower lung airspace opacities likely representing atelectasis or infiltrates.
--- NOTE | 2023-01-05 14:58 | P.PN ---
Subjective Progress Note Date: 01/05/23 52-year-old male who was recently discharged from this hospital, with a COPD exacerbation. The patient was discharged, and went back to [facility], because of his addiction. The patient states that apparently he smelled bleach at [facility], and he became very short of breath. In addition, he complained of chest tightness, wheezing, coughing, and phlegm production. He was seen in the emergency department on December 31 at 3:00 in the morning. He is seen this morning, in the emergency department, room 30. He is on 3 L of oxygen. He's not receiving any IV fluids. His chest x-ray revealed a possible right lower lobe infiltrate. He is profoundly short of breath, which is why he came back in. White count 31.5, hemoglobin 13, hematocrit 39.6, and platelet count 900,000. Sodium 133, potassium 4.3, chlorides 99, CO2 28, BUN 15, creatinine 0.39. Studies for influenza, RSV, and coronavirus, are all negative. Chest x- ray shows worsening right lower lung airspace opacities/atelectasis, with a small effusion. Progress note dated 01/01/2023. The patient is seen today in room 155. He was seen in consultation yesterday, in the emergency department. He was admitted with a diagnosis of COPD exacerbation, and right lower lobe infiltrate. The patient's currently on 2 L of oxygen. His pro-calcitonin level was elevated 0.17. The patient had a chest x-ray ordered for tomorrow, January 02. He continues on Zosyn and vancomycin. White count is 25.6, hemoglobin 11.7, hematocrit 36.3, platelet count 798,000. Creatinine 0.43. Studies for influenza, Legionella, RSV, and coronavirus, are all negative. The patient is seen today 01/02/2023 in follow-up on the regular medical floor. He is up ambulating in his room. Awake and alert in no acute distress. Maintaining O2 saturations in the 90s on room air. He's been afebrile. Hemodynamically stable. Chest x-ray shows bilateral infiltrate and small right effusion. No pneumothorax. CT angiogram was suboptimal due to contrast bolus and breathing motion artifact. No definite pulmonary embolus. There is worsening now moderate-sized right pleural effusion, new atelectatic collapse of the right lower lobe. Also worsening consolidation and volume loss throughout the right middle lobe. Possible small pneumonic infiltrate anteromedial right midlung persist though minimally smaller. Persistent right hilar lymph node, suspect reactive measuring up to 2.4 cm. Sputum culture pending. Creatinine 0.53. Vancomycin trough 11.6. He is continued on DuoNeb inhalations, Symbicort, prednisone taper. He is continued on vancomycin and cefepime. NicoDerm patch in place. The patient is seen today 01/03/2023 in follow-up on the regular medical floor. He is awake and alert in no acute distress. Up ambulating in his room. Stable and on room air. He did undergo bronchoscopy with BAL and brushing of the right lung. Cytology, cultures and fluid analysis pending. We have requested interventional radiology to place a pigtail catheter into the right lower lung pleural effusion. Ultrasound revealed a moderate right pleural effusion with internal debris and septations. Patient culture pending. White count 16.7. He moglobin 10.9. MCV 102.1. Platelets 783. Sodium 138. Potassium 4.2. Bicarb 27. BUN 6. Creatinine 0.6. C-reactive protein 24.0. He remains on vancomycin and cefepime. Continue on Symbicort, DuoNeb inhalations, prednisone taper. NicoDerm patch is in place. The patient is seen today 01/04/2023 in follow-up on the regular medical floor. He is awake and alert in no acute distress. Up ambulating in his room. Up in the shower. No worsening shortness of breath, cough or congestion. Denies to maintain good O2 saturations in the 90s on room air. He's been afebrile. Hemodynamically stable. Sputum culture revealed no growth. Bronchial wash cultures and cytology are pending. Today's labs are pending. He remains on vancomycin and cefepime. Continue on bronchodilators and a prednisone taper. NicoDerm patch in place. Plan is to have interventional radiology place a pigtail catheter to the right chest. On today's evaluation of 01/05/2023, the patient was seen for a follow-up. I reviewed the x-ray I also reviewed the CAT scan of the chest. I performed a bedside thoracentesis on this patient and the total of 250 mL of fluid was aspirated from the right lung. The subsequent chest x-ray that was done following the procedure showed a small right-sided pleural effusion post thoracentesis. No this of any pneumothorax. There is some residual right mid and lower lobe airspace disease/consolidation. The patient is currently doing well. The patient remains on IV Unasyn. The patient is on prednisone burst taper. He is on room air oxygen. The white cell count at 17.6 with a hemoglobin of 10.8 and a platelet count of 832. Creatinine 0.5. Vancomycin level was 13.9. Objective - Vital Signs Vital signs: Vital Signs Temp 98.0 F 01/05/23 07:03 Pulse 92 01/05/23 08:23 Resp 16 01/05/23 07:03 BP 159/103 01/05/23 07:03 Pulse Ox 96 01/05/23 08:12 FiO2 21 01/05/23 08:12 Intake & Output 01/04/23 01/05/23 01/05/23 18:59 06:59 18:59 Intake Total 100 Balance 100 Intake: Intake, IV Titration 100 Amount Ampicillin-Sulbactam 3 gm 100 In Sodium Chloride 0.9% 100 ml @ 200 mls/hr IVPB Q6HR [facility] Rx#:[id number] Other: Voiding Method Toilet # Voids 4 0 - Exam GENERAL EXAM: Alert, pleasant 52-year-old male patient, on room air, comfortable in no apparent distress. HEAD: Normocephalic. EYES: Normal reaction of pupils, equal size. NOSE: Clear with pink turbinates. THROAT: No erythema or exudates. NECK: No masses, no JVD. CHEST: No chest wall deformity. LUNGS: Equal air entry with bilateral end expiratory wheeze, few scattered rhonchi more so on the right lung. CVS: S1 and S2 normal with no audible murmur, regular rhythm. ABDOMEN: No hepatosplenomegaly, normal bowel sounds, no guarding or rigidity. SPINE: No scoliosis or deformity SKIN: No rashes CENTRAL NERVOUS SYSTEM: No focal deficits, tone is normal in all 4 extremities. EXTREMITIES: There is no peripheral edema. No clubbing, no cyanosis. Peripheral pulses are intact. - Labs CBC & Chem 7: 01/05/23 05:01 01/05/23 05:01 Labs: Abnormal Lab Results - Last 24 Hours (Table) 01/03/23 01/04/23 01/04/23 Range/Units 08:00 06:53 06:53 WBC 17.77 H (4.50-10.00) X 10*3/uL RBC 3.16 L (4.40-5.60) X 10*6/uL Hgb 10.3 L (13.0-17.0) d/dL Hct 32.1 L (39.6-50.0) % MCV 101.6 H (80.0-97.0) FL MCH 32.6 H (27.0-32.0) pg Plt Count 767 H (140-440) X 10*3/uL MPV 8.9 L (9.5-12.2) FL Neutrophils # 13.77 H (1.80-7.70) X 10*3/uL Monocytes # 1.17 H (0.20-1.00) X 10*3/uL BUN 7.3 L (9.0-27.0) mg/dL Creatinine (0.66-1.25) mg/dL Fluid Appearance Cloudy A (Clear) 01/05/23 01/05/23 Range/Units 05:01 05:01 WBC 17.61 H (4.50-10.00) X 10*3/uL RBC 3.29 L (4.40-5.60) X 10*6/uL Hgb 10.8 L (13.0-17.0) d/dL Hct 33.3 L (39.6-50.0) % MCV 101.2 H (80.0-97.0) FL MCH 32.8 H (27.0-32.0) pg Plt Count 832 H (140-440) X 10*3/uL MPV 8.6 L (9.5-12.2) FL Neutrophils # 13.48 H (1.80-7.70) X 10*3/uL Monocytes # 1.25 H (0.20-1.00) X 10*3/uL BUN (9.0-27.0) mg/dL Creatinine 0.54 L (0.66-1.25) mg/dL Fluid Appearance (Clear) Microbiology - Last 24 Hours (Table) 01/03/23 08:00 Gram Stain - Preliminary Bronchoalviolar Lavage - Right Assessment and Plan Plan: Acute hypoxemic respiratory failure, secondary to COPD exacerbation, complicated by right-sided pneumonia. He did undergo bronchoscopy with BAL and brushings on the right lung 01/03/2023. Ultrasound of the right chest revealed moderate pleural effusion with internal debris and septations. I performed a thoracente sis on this patient and total of 250 mL of fluid was aspirated. No complications. Subsequent chest x-ray shows improvement with a small right- sided pleural effusion. Obtain a follow-up chest x-ray tomorrow. Awaiting pleural fluid chemistry and cytology. Ongoing tobacco use with nicotine addiction. Chronic alcohol abuse. History of depression. Homelessness. Plan: I performed a thoracentesis and the patient had a total of 250 mL of pleural fluid. The subsequent chest x-ray showed only small right-sided pleural effusion along with some residual infiltration/consolidation right lung base. Repeat chest x-ray in the morning He did undergo bronchoscopy with BAL Continued on vancomycin and Unasyn Continue bronchodilators, steroids We will continue to follow
--- NOTE | 2023-01-05 15:00 | P.PCN ---
Date of Procedure: 01/05/23 Description of Procedure: Date of Procedure: 01/05/23 Preoperative Diagnosis: right, pleural effusion Postoperative Diagnosis: same Procedure(s) Performed: thoracentesis, right Anesthesia: local Surgeon: Valentín Crocker Pathology: none sent Condition: critical Disposition: ICU Operative Findings: A time out was performed and the chest x-ray was reviewed, the appropriate side was confirmed and marked. My hands were washed immediately prior to the procedure. I wore a surgical cap, mask with protective eyewear, sterile gown and sterile gloves throughout the procedure. The patient was prepped and draped in a sterile manner using chlorhexidine scrub after the appropriate level was percussed and confirmed by ultrasound. 1% lidocaine was used to anesthesize the skin, subcutaneous tissue, superior aspect of the rib periosteum and parietal pl eura. A finder needle was then introduced over the superior aspect of the rib to locate the pleural fluid; 2colored fluid was aspirated at a depth of approximately 2 cm. A 10-blade scalpel was used to ellen the skin at the insertion site. The [id number] needle was then introduced through the skin incision into the pleural space using negative aspiration pressure and the red colometric indicator to confirm appropriate positioning of the needle. The thoracentesis catheter was then threaded without difficulty. 250 ml of turbid yellow fluid was removed without difficulty. The catheter was then removed. No immediate complications were noted during the procedure. A post-procedure chest x-ray is pending at the time of this note. The fluid will not be sent for studies. Estimated blood loss is 0cc
--- NOTE | 2023-01-05 18:48 | P.PN ---
Subjective Progress Note Date: 01/05/23 Patient.52-year-old male came in with comments of shortness of breath does have history of COPD quit smoking about a week ago patient is a drug rehabitation program at this time. Chest x-ray was done which showed increasing infiltrate on the right side patient was on third-generation supposed for him for pneumonia as an outpatient. Patient does have wheezing which appears to be more of stridor. Patient does have oral thrush on exam. Patient is oxygen usually doesn't use any oxygen at home. Pro-calcitonin was ordered patient has leukocytosis with WBC count of 30,000 although patient is on steroids as an outpatient. Patient believes inhalational bleach she at the facility may have caused his COPD exacerbation. Patient is presently nicotine patches. Patient doesn't have any fever 01/01/2023 Patient seen and evaluated in follow-up today with pulmonary following. Patient continued on oral steroids now for COPD exacerbation along with breathing treatments. Repeat labs pending at this time and pro-calcitonin was 0.17. Patient is continued on vancomycin and Zosyn and will continue for now with attempting to obtain a sputum culture. Sputum culture was sent and pending at this time. Patient continues to have dyspnea and right side pain with inspiration will add incentive spirometer and also consult infectious disease and appreciate input and recommendations. Patient is currently afebrile with no reported chest pain or palpitations. Patient is tolerating diet and denies any nausea or vomiting. Patient reports is up and walking to the bathroom and becomes dyspneic and has to rest. Patient is continued on 2 L via nasal cannula. 01/02/2023 Patient is seen in follow-up today with pulmonary and infectious disease following. Patient continues to report right-sided lung pain and chest wall pain with difficulty breathing and taking deep breaths. Patient is maintained on antibiotics with infectious disease following and has ordered repeat sputum culture which was sent and pending. Infectious disease recommending awaiting cultures and continue on IV antibiotics before transitioning to oral to await cultures. Patient is also continued on nystatin for thrush which is improving. Patient is off oxygen and uses it as needed although maintaining oxygen saturation above 90% on room air. Patient with incentive spirometer at bedside instructed to continue using at least 10 times every hour while awake. Patient is being considered for discharge by pulmonary although still concerned with patient still being symptomatic and will obtain repeat CT chest for further evaluation. 01/03/2023 Patient is evaluated today ambulating in the hallways. Patient is status post bronchoscopy this AM with BAL and suctioning of mucous plug. 16.3 today additionally his sodium has normalized at 138. His CRP was elevated at 24. He remains on antibiotics in the form of IV vancomycin. IV cefepime has been added. Pulmonary and ID are currently following with further recommendations regarding empyema. 01/04/2023 Patient today states his breathing has improved he has been weaned to room air. Continues to report significant pain and discomfort to the right anterior ribcag e. Lungs sounds are diminished at the right base. His white count is 17.77 today. Antibiotics have been adjusted to IV unasyn. Sputum culture is negative. Pending bronch washings. He is scheduled to undergo right sided chest tube placement with IR tomorrow for the empyema. 01/05/2023 Patient seen and evaluated and follow-up currently nothing by mouth scheduled to undergo thoracentesis with pulmonary at bedside. Infectious disease following as well and is continued on IV Unasyn. Patient is status post bronchoscopy awaiting cultures from this as well. Sputum culture thus far has been negative. Patient is afebrile continue to report some shortness of breath and right side wall pain on the lower ribs. Patient has been up and walking and is currently maintaining oxygen saturation above 90% on room air. Review of systems: Constitutional: No reports of fatigue, fever, or chills Cardiovascular: No reports of chest pain or palpitations Respiratory: reports of shortness of breath with cough and right-sided rib pain with deep inspiration GI: No reports of nausea, vomiting, or diarrhea : No reports of dysuria or retention Neurovascular: No reports of weakness or numbness All medications have been reviewed PHYSICAL EXAMINATION: GENERAL: The patient is alert and oriented x3, Appears to be slowly clinically improving and on room air. Well developed, well nourished. HEENT: Pupils are round and equally reacting to light. EOMI. No scleral icterus. No conjunctival pallor. Normocephalic, atraumatic. No pharyngeal erythema. No thyromegaly. CARDIOVASCULAR: S1 and S2 present. No murmurs, rubs, or gallops. PULMONARY: Diminished breath sounds bilaterally otherwise Chest is clear to auscultation. There is some faint crackles noted at the bases more so on the right ABDOMEN: Soft, nontender, nondistended, normoactive bowel sounds. No palpable organomegaly. MUSCULOSKELETAL: No joint swelling or deformity. EXTREMITIES: No cyanosis, clubbing, or pedal edema. NEUROLOGICAL: Gross neurological examination did not reveal any focal deficits. SKIN: No rashes. Assessment: -COPD with acute exacerbation -Acute hypoxic respiratory failure multifactorial secondary to pneumonia as well as COPD exacerbation -worsening pneumonia , community-acquired, repeat sputum cultures are negative status post bronchoscopy with BAL -Moderate-sized right pleural effusion with new atelectatic collapse of the right lower lobe, awaiting thoracentesis today -Seizure disorder, continued on home medications -Alcohol abuse and nicotine abuse patient is presently at drug rehabitation program at [facility] with plans to return there on discharge -DVT prophylaxis: Lovenox -GI prophylaxis -Full code Plan: Pulmonary following and continued on DuoNeb treatments along with oral steroids and Patient currently on room air weaned off oxygen. ID following and patient continues on IV unasyn. Patient is scheduled to undergo thoracentesis and hopeful for cultures and cytology Patient is status post bronchoscopy with cultures pending also. Encouraged increased activity as tolerated Encouraged incentive spirometer use at least 10 times every hour while awake Will follow-up on repeat labs in a.m. Will await cultures and discuss further with pulmonary as well as infectious disease on discharge planning. Plan is to return to [facility] when stable to complete his alcohol rehab Patient is not actively withdrawing and will not require CIPR protocol The impression and plan of care has been dictated by Kimmie Marley, Nurse Practitioner as directed. Dr. Raymond MD I have performed a history and examination and MDM of this patient, discussed the same with the dictator, and agree with the dictator's assessment and plan as written ,documented as a scribe. Based on total visit time, I have performed more than 50% of the visit. Objective - Vital Signs Vital signs: Vital Signs Temp 98.2 F 01/05/23 13:50 Pulse 109 H 01/05/23 13:50 Resp 14 01/05/23 13:50 BP 136/85 01/05/23 13:50 Pulse Ox 95 01/05/23 13:50 FiO2 21 01/05/23 08:12 Intake & Output 01/04/23 01/05/23 01/05/23 18:59 06:59 18:59 Intake Total 100 Balance 100 Intake: Intake, IV Titration 100 Amount Ampicillin-Sulbactam 3 gm 100 In Sodium Chloride 0.9% 100 ml @ 200 mls/hr IVPB Q6HR [facility] Rx#:[id number] Other: Voiding Method Toilet # Voids 4 0 - Labs CBC & Chem 7: 01/05/23 05:01 01/05/23 05:01 Labs: Abnormal Lab Results - Last 24 Hours (Table) 01/03/23 01/05/23 01/05/23 Range/Units 08:00 05:01 05:01 WBC 17.61 H (4.50-10.00) X 10*3/uL RBC 3.29 L (4.40-5.60) X 10*6/uL Hgb 10.8 L (13.0-17.0) d/dL Hct 33.3 L (39.6-50.0) % MCV 101.2 H (80.0-97.0) FL MCH 32.8 H (27.0-32.0) pg Plt Count 832 H (140-440) X 10*3/uL MPV 8.6 L (9.5-12.2) FL Neutrophils # 13.48 H (1.80-7.70) X 10*3/uL Monocytes # 1.25 H (0.20-1.00) X 10*3/uL Creatinine 0.54 L (0.66-1.25) mg/dL Fluid Appearance Cloudy A (Clear) Microbiology - Last 24 Hours (Table) 01/03/23 08:00 Gram Stain - Preliminary Bronchoalviolar Lavage - Right
[2023-01-05 21:20] LABS: Appearance,BF Clear (Clear)
[2023-01-05] MEDS: traZODone HCL 100 MG TAB PO SCH (21:23)
[2023-01-06] MEDS: AMPICILLIN-SULBACTAM 3 GM in SODIUM CHLORIDE 0.9% 100 ML IVPB SCH ×4 (00:48→17:34)
[2023-01-06 01:40] LABS: Amylase, Fluid Source Pleural fluid; Amylase,Body Fluid 43 U/L; Glucose, BF Source Pleural fluid; Glucose, Body Fluid 68 mg/dL; LDH, Body Fluid Source Pleural fluid; T. Protein, Body Fluid Source Pleural fluid; Total Protein, Body Fluid >3600 mg/dL
[2023-01-06] MEDS: KETOROLAC 15 MG/ML 1 ML VIAL IVP SCH ×3 (02:25→16:12)
[2023-01-06] MEDS: ESCITALOPRAM 10 MG TAB PO SCH (05:10)
[2023-01-06] MEDS: NICOTINE 21MG/24HR PATCH TRANSDERM SCH (05:10)
[2023-01-06] MEDS: levETIRAcetam 500 MG TAB PO SCH ×2 (05:10→15:45)
[2023-01-06] MEDS: IPRATROPIUM-ALBUTEROL 3 ML NEB INHALATION SCH ×4 (08:29→20:54)
[2023-01-06 08:46] LABS: Basophils # (A) 0.01 X 10*3/uL (0.00-0.10); Basophils % (A) 0.1 %; Eosinophils # (A) 0.11 X 10*3/uL (0.04-0.35); Eosinophils % (A) 0.7 %; HCT 30.6 % (39.6-50.0); Lymphocytes # (A) 2.67 X 10*3/uL (0.90-5.00); Lymphocytes % (A) 16.2 %; MCH 32.9 pg (27.0-32.0); MCHC 32.7 d/dL (32.0-37.0); MCV 100.7 FL (80.0-97.0); Mean Platelet Volume 8.5 FL (9.5-12.2); Monocytes # (A) 0.94 X 10*3/uL (0.20-1.00); Monocytes % (A) 5.7 %; NRBC Per 100 WBC 0 X 10*3/uL (0.00-0.01); Neutrophils # (A) 12.54 X 10*3/uL (1.80-7.70); Neutrophils % (A) 76.2 %; Platelet Count 817 X 10*3/uL (140-440); RBC 3.04 X 10*6/uL (4.40-5.60); RDW 13.2 % (11.5-14.5); WBC 16.45 X 10*3/uL (4.50-10.00)
[2023-01-06] MEDS: SYMBICORT 160-4.5 MCG INHALER INHALATION SCH ×2 (09:03→20:55)
[2023-01-06] MEDS: ACETAMINOPHEN TAB 325 MG TAB PO SCH ×4 (10:40→20:40)
[2023-01-06] MEDS: busPIRone HCl 10 MG TAB PO SCH ×3 (10:41→20:40)
[2023-01-06] MEDS: SENNOSIDES 8.6 MG TAB PO SCH ×2 (10:41→20:40)
[2023-01-06] MEDS: THIAMINE 100 MG TAB PO SCH (10:41)
[2023-01-06] MEDS: NYSTATIN 100,000 UNIT/ML SUSP 500,000 UNIT/5 ML CUP PO SCH ×4 (10:41→20:40)
[2023-01-06] MEDS: HEPARIN SODIUM,PORCINE 5,000 UNIT/ML 1 ML VIAL SQ SCH ×2 (10:41→20:39)
[2023-01-06] MEDS: predniSONE 10 MG TAB PO SCH (10:41)
[2023-01-06 11:14] LABS: Magnesium 1.7 mg/dL (1.5-2.4)
[2023-01-06 11:22] LABS: BUN/Creat Ratio 17.17 Ratio (12.00-20.00); Blood Urea Nitrogen 10.3 mg/dL (9.0-27.0); Calcium 9.3 mg/dL (8.7-10.3); Carbon Dioxide 28.5 mmol/L (21.6-31.8); Chloride 98 mmol/L (96-109); Glucose 170 mg/dL (70-110); Potassium 4.3 mmol/L (3.5-5.5); Sodium 139 mmol/L (135-145)
--- NOTE | 2023-01-06 13:05 | P.PN ---
Subjective Progress Note Date: 01/05/23 Principal diagnosis: Pneumonia Patient is a 52-year-old male with a past medical his significant for COPD seizure disorder psoriasis current everyday smoker presenting to the hospital for evaluation of increasing shortness of breath also have a productive cough and right-sided chest pain. Pt is s/p bronchoscopy and BAL completed 01/03/2023 On today's evaluation that is 01/05/2023, the patient continues to be afebrile, the patient is breathing comfortably on room air and denies any worsening right- sided chest pain or any worsening cough, patient denies abdominal pain, and denies any nausea/vomiting or diarrhea Patient did have white count is slightly up to 17.77 as of yesterday no CBC was done today, creatinine 0.51, BAL cultures are pending Objective - Vital Signs Vital signs: Vital Signs Temp 98.0 F 01/05/23 07:03 Pulse 92 01/05/23 08:23 Resp 16 01/05/23 07:03 BP 159/103 01/05/23 07:03 Pulse Ox 96 01/05/23 08:12 FiO2 21 01/05/23 08:12 Intake & Output 01/04/23 01/05/23 01/05/23 18:59 06:59 18:59 Intake Total 100 Balance 100 Intake: Intake, IV Titration 100 Amount Ampicillin-Sulbactam 3 gm 100 In Sodium Chloride 0.9% 100 ml @ 200 mls/hr IVPB Q6HR [facility] Rx#:[id number] Other: Voiding Method Toilet # Voids 4 0 - Exam GENERAL DESCRIPTION: Middle-aged male lying in bed in no distress RESPIRATORY SYSTEM: Unlabored breathing , decreased breath sounds at bases HEART: S1 S2 regular rate and rhythm , ABDOMEN: Soft , no tenderness EXTREMITIES: No edema feet - Labs CBC & Chem 7: 01/06/23 05:20 01/06/23 05:20 Labs: Abnormal Lab Results - Last 24 Hours (Table) 01/03/23 01/04/23 01/04/23 Range/Units 08:00 06:53 06:53 WBC 17.77 H (4.50-10.00) X 10*3/uL RBC 3.16 L (4.40-5.60) X 10*6/uL Hgb 10.3 L (13.0-17.0) d/dL Hct 32.1 L (39.6-50.0) % MCV 101.6 H (80.0-97.0) FL MCH 32.6 H (27.0-32.0) pg Plt Count 767 H (140-440) X 10*3/uL MPV 8.9 L (9.5-12.2) FL Neutrophils # 13.77 H (1.80-7.70) X 10*3/uL Monocytes # 1.17 H (0.20-1.00) X 10*3/uL BUN 7.3 L (9.0-27.0) mg/dL Creatinine (0.66-1.25) mg/dL Fluid Appearance Cloudy A (Clear) 01/05/23 01/05/23 Range/Units 05:01 05:01 WBC 17.61 H (4.50-10.00) X 10*3/uL RBC 3.29 L (4.40-5.60) X 10*6/uL Hgb 10.8 L (13.0-17.0) d/dL Hct 33.3 L (39.6-50.0) % MCV 101.2 H (80.0-97.0) FL MCH 32.8 H (27.0-32.0) pg Plt Count 832 H (140-440) X 10*3/uL MPV 8.6 L (9.5-12.2) FL Neutrophils # 13.48 H (1.80-7.70) X 10*3/uL Monocytes # 1.25 H (0.20-1.00) X 10*3/uL BUN (9.0-27.0) mg/dL Creatinine 0.54 L (0.66-1.25) mg/dL Fluid Appearance (Clear) Microbiology - Last 24 Hours (Table) 01/03/23 08:00 Gram Stain - Preliminary Bronchoalviolar Lavage - Right Assessment and Plan (1) Pneumonia Current Visit: No Status: Acute Code(s): J18.9 - PNEUMONIA, UNSPECIFIED ORGANISM SNOMED Code(s): 153989081 Plan: 1patient presented to hospital with increasing shortness of breath and a cough and evidence of pneumonia on the chest x-ray did have elevated white count and procalcitonin patient did have history of COPD has been in and out of the hospital we need to cover for resistant gram-positive as well as gram-negative pathogen) did have a previous history of MRSA infection 2-patient did have repeat CT concerning for loculated effusion/empyema for which IR has been consulted for pigtail catheter placement , fluid should be sent for cultures and will follow BAL cultures 3-patient sputum culture had been negative for any resistant pathogen, BAL cultures are pending 4-patient to continue with Unasyn and monitor clinical course closely Dictation was produced using [employer] dictation software. please excuse any grammatical, word or spelling errors. Time with Patient: Less than 30
--- NOTE | 2023-01-06 13:08 | P.PN ---
Subjective Progress Note Date: 01/06/23 Principal diagnosis: Pneumonia Patient is a 52-year-old male with a past medical his significant for COPD seizure disorder psoriasis current everyday smoker presenting to the hospital for evaluation of increasing shortness of breath also have a productive cough and right-sided chest pain. Pt is s/p bronchoscopy and BAL completed 01/03/2023, the patient is status post right-sided thoracentesis with removal of 250 mL of turbid fluid On today's evaluation that is 01/06/2023, the patient remains to be afebrile, the patient is breathing comfortably on room air without the need for supplemental oxygen and denies any shortness of breath, the patient denies right-sided chest pain has decreased in intensity and denies any worsening cough, patient denies nausea/vomiting /diarrhea and no abdominal pain, Patient did have white count is slightly down to 16.45, creatinine 0.6, BAL cultures are negative Objective - Vital Signs Vital signs: Vital Signs Temp 98.4 F 01/06/23 06:58 Pulse 88 01/06/23 08:47 Resp 17 01/06/23 06:58 BP 121/79 01/06/23 06:58 Pulse Ox 95 01/06/23 06:58 FiO2 21 01/05/23 08:12 Intake & Output 01/05/23 01/06/23 01/06/23 18:59 06:59 18:59 Intake Total 100 Balance 100 Intake: Intake, IV Titration 100 Amount Ampicillin-Sulbactam 3 gm 100 In Sodium Chloride 0.9% 100 ml @ 200 mls/hr IVPB Q6HR [facility] Rx#:[id number] Other: Voiding Method Toilet # Voids 2 - Exam GENERAL DESCRIPTION: Middle-aged male lying in bed in no distress RESPIRATORY SYSTEM: Unlabored breathing , decreased breath sounds at bases HEART: S1 S2 regular rate and rhythm , ABDOMEN: Soft , no tenderness EXTREMITIES: No edema feet - Labs CBC & Chem 7: 01/06/23 05:20 01/06/23 05:20 Labs: Abnormal Lab Results - Last 24 Hours (Table) 01/06/23 Range/Units 05:20 WBC 16.45 H (4.50-10.00) X 10*3/uL RBC 3.04 L (4.40-5.60) X 10*6/uL Hgb 10.0 L (13.0-17.0) d/dL Hct 30.6 L (39.6-50.0) % MCV 100.7 H (80.0-97.0) FL MCH 32.9 H (27.0-32.0) pg Plt Count 817 H (140-440) X 10*3/uL MPV 8.5 L (9.5-12.2) FL Neutrophils # 12.54 H (1.80-7.70) X 10*3/uL Microbiology - Last 24 Hours (Table) 01/03/23 08:00 Gram Stain - Final Bronchoalviolar Lavage - Right Bronchial Washings Culture - Final 01/03/23 08:00 Acid Fast Bacilli Smear - Preliminary Bronchoalviolar Lavage - Right Assessment and Plan (1) Pneumonia Current Visit: No Status: Acute Code(s): J18.9 - PNEUMONIA, UNSPECIFIED ORGANISM SNOMED Code(s): 896008062 Plan: 1patient presented to hospital with increasing shortness of breath and a cough and evidence of pneumonia on the chest x-ray did have elevated white count and procalcitonin patient did have history of COPD has been in and out of the hospital we need to cover for resistant gram-positive as well as gram-negative pathogen) did have a previous history of MRSA infection 2-patient did have repeat CT concerning for loculated effusion/empyema for which patient did have a thoracocentesis done by pulmonary on 01/03/2020 3-patient sputum culture had been negative for any resistant pathogen, BAL cultures are negative as well 4-patient has shown clinical improvement and will continue with Unasyn and finishing therapy with Augmentin Dictation was produced using [employer] dictation software. please excuse any grammatical, word or spelling errors. Time with Patient: Less than 30
--- NOTE | 2023-01-06 13:38 | P.PN ---
Subjective Progress Note Date: 01/06/23 52-year-old male who was recently discharged from this hospital, with a COPD exacerbation. The patient was discharged, and went back to [place], because of his addiction. The patient states that apparently he smelled bleach at [place], and he became very short of breath. In addition, he complained of chest tightness, wheezing, coughing, and phlegm production. He was seen in the emergency department on December 31 at 3:00 in the morning. He is seen this morning, in the emergency department, room 30. He is on 3 L of oxygen. He's not receiving any IV fluids. His chest x-ray revealed a possible right lower lobe infiltrate. He is profoundly short of breath, which is why he came back in. White count 31.5, hemoglobin 13, hematocrit 39.6, and platelet count 900,000. Sodium 133, potassium 4.3, chlorides 99, CO2 28, BUN 15, creatinine 0.39. Studies for influenza, RSV, and coronavirus, are all negative. Chest x- ray shows worsening right lower lung airspace opacities/atelectasis, with a small effusion. Progress note dated 01/01/2023. The patient is seen today in room 155. He was seen in consultation yesterday, in the emergency department. He was admitted with a diagnosis of COPD exacerbation, and right lower lobe infiltrate. The patient's currently on 2 L of oxygen. His pro-calcitonin level was elevated 0.17. The patient had a chest x-ray ordered for tomorrow, January 02. He continues on Zosyn and vancomycin. White count is 25.6, hemoglobin 11.7, hematocrit 36.3, platelet count 798,000. Creatinine 0.43. Studies for influenza, Legionella, RSV, and coronavirus, are all negative. The patient is seen today 01/02/2023 in follow-up on the regular medical floor. He is up ambulating in his room. Awake and alert in no acute distress. Maintaining O2 saturations in the 90s on room air. He's been afebrile. Hemodynamically stable. Chest x-ray shows bilateral infiltrate and small right effusion. No pneumothorax. CT angiogram was suboptimal due to contrast bolus and breathing motion artifact. No definite pulmonary embolus. There is worsening now moderate-sized right pleural effusion, new atelectatic collapse of the right lower lobe. Also worsening consolidation and volume loss throughout the right middle lobe. Possible small pneumonic infiltrate anteromedial right midlung persist though minimally smaller. Persistent right hilar lymph node, suspect reactive measuring up to 2.4 cm. Sputum culture pending. Creatinine 0.53. Vancomycin trough 11.6. He is continued on DuoNeb inhalations, Symbicort, prednisone taper. He is continued on vancomycin and cefepime. NicoDerm patch in place. The patient is seen today 01/03/2023 in follow-up on the regular medical floor. He is awake and alert in no acute distress. Up ambulating in his room. Stable and on room air. He did undergo bronchoscopy with BAL and brushing of the right lung. Cytology, cultures and fluid analysis pending. We have requested interventional radiology to place a pigtail catheter into the right lower lung pleural effusion. Ultrasound revealed a moderate right pleural effusion with internal debris and septations. Patient culture pending. White count 16.7. He moglobin 10.9. MCV 102.1. Platelets 783. Sodium 138. Potassium 4.2. Bicarb 27. BUN 6. Creatinine 0.6. C-reactive protein 24.0. He remains on vancomycin and cefepime. Continue on Symbicort, DuoNeb inhalations, prednisone taper. NicoDerm patch is in place. The patient is seen today 01/04/2023 in follow-up on the regular medical floor. He is awake and alert in no acute distress. Up ambulating in his room. Up in the shower. No worsening shortness of breath, cough or congestion. Denies to maintain good O2 saturations in the 90s on room air. He's been afebrile. Hemodynamically stable. Sputum culture revealed no growth. Bronchial wash cultures and cytology are pending. Today's labs are pending. He remains on vancomycin and cefepime. Continue on bronchodilators and a prednisone taper. NicoDerm patch in place. Plan is to have interventional radiology place a pigtail catheter to the right chest. On today's evaluation of 01/05/2023, the patient was seen for a follow-up. I reviewed the x-ray I also reviewed the CAT scan of the chest. I performed a bedside thoracentesis on this patient and the total of 250 mL of fluid was aspirated from the right lung. The subsequent chest x-ray that was done following the procedure showed a small right-sided pleural effusion post thoracentesis. No this of any pneumothorax. There is some residual right mid and lower lobe airspace disease/consolidation. The patient is currently doing well. The patient remains on IV Unasyn. The patient is on prednisone burst taper. He is on room air oxygen. The white cell count at 17.6 with a hemoglobin of 10.8 and a platelet count of 832. Creatinine 0.5. Vancomycin level was 13.9. 01/06/2023, the patient is on room air oxygen. The patient underwent a thoracentesis yesterday and it in approximately 250 mL of fluid was aspirated from the right lung. The fluid was an exudate based on the protein criteria as the pleural fluid protein was more than 3.6. At same time, the LDH was elevated at 660. The fluid glucose was at 68. The white cell count was up to 39. Cultures are still pending for now. The repeat chest x-ray following the procedure shows improvement in the aeration of the right lung base. There was some residual right lower lobe airspace disease and a small right-sided pleural effusion. No evidence of any pneumothorax. Clinically, the patient is doing well, the white second of 60 with a hemoglobin of 10 and a platelet count of 217. BUN is at panel with a creatinine of 0.6 and a sodium level is at 139. Objective - Vital Signs Vital signs: Vital Signs Temp 98.4 F 01/06/23 06:58 Pulse 88 01/06/23 08:47 Resp 17 01/06/23 06:58 BP 121/79 01/06/23 06:58 Pulse Ox 95 01/06/23 06:58 FiO2 21 01/05/23 08:12 Intake & Output 01/05/23 01/06/23 01/06/23 18:59 06:59 18:59 Intake Total 100 Balance 100 Intake: Intake, IV Titration 100 Amount Ampicillin-Sulbactam 3 gm 100 In Sodium Chloride 0.9% 100 ml @ 200 mls/hr IVPB Q6HR [facility] Rx#:[id number] Other: Voiding Method Toilet # Voids 2 - Exam GENERAL EXAM: Alert, pleasant 52-year-old male patient, on room air, comfortable in no apparent distress. HEAD: Normocephalic. EYES: Normal reaction of pupils, equal size. NOSE: Clear with pink turbinates. THROAT: No erythema or exudates. NECK: No masses, no JVD. CHEST: No chest wall deformity. LUNGS: Equal air entry with bilateral end expiratory wheeze, few scattered rhonchi more so on the right lung. CVS: S1 and S2 normal with no audible murmur, regular rhythm. ABDOMEN: No hepatosplenomegaly, normal bowel sounds, no guarding or rigidity. SPINE: No scoliosis or deformity SKIN: No rashes CENTRAL NERVOUS SYSTEM: No focal deficits, tone is normal in all 4 extremities. EXTREMITIES: There is no peripheral edema. No clubbing, no cyanosis. Periphera l pulses are intact. - Labs CBC & Chem 7: 01/06/23 05:20 01/06/23 05:20 Labs: Abnormal Lab Results - Last 24 Hours (Table) 01/06/23 01/06/23 Range/Units 05:20 05:20 WBC 16.45 H (4.50-10.00) X 10*3/uL RBC 3.04 L (4.40-5.60) X 10*6/uL Hgb 10.0 L (13.0-17.0) d/dL Hct 30.6 L (39.6-50.0) % MCV 100.7 H (80.0-97.0) FL MCH 32.9 H (27.0-32.0) pg Plt Count 817 H (140-440) X 10*3/uL MPV 8.5 L (9.5-12.2) FL Neutrophils # 12.54 H (1.80-7.70) X 10*3/uL Anion Gap 12.50 H (4.00-12.00) mmol/L Glucose 170 H (70-110) mg/dL Microbiology - Last 24 Hours (Table) 01/03/23 08:00 Gram Stain - Final Bronchoalviolar Lavage - Right Bronchial Washings Culture - Final 01/03/23 08:00 Acid Fast Bacilli Smear - Preliminary Bronchoalviolar Lavage - Right Assessment and Plan Plan: Acute hypoxemic respiratory failure, secondary to COPD exacerbation, complicated by right-sided pneumonia. He did undergo bronchoscopy with BAL and brushings on the right lung 01/03/2023. Ultrasound of the right chest revealed moderate pleural effusion with internal debris and septations. I performed a thoracentesis on this patient and total of 250 mL of fluid was aspirated. No c omplications. Subsequent chest x-ray shows improvement with a small right-sided pleural effusion. The fluid is an exudate and the fluid cultures are still pending for now. The fluid also sent for cytology. The fluid is a exudate based on the LDH and protein criteria. Follow-up chest x-ray shows improvement elevation of the right lung. This small residual right-sided pleural effusion. The patient is currently on room air oxygen. Ongoing tobacco use with nicotine addiction. Chronic alcohol abuse. History of depression. Homelessness. Plan: I performed a thoracentesis and the patient had a total of 250 mL of pleural fluid. The subsequent chest x-ray showed only small right-sided pleural effusion along with some residual infiltration/consolidation right lung base. The fluid cytology is pending. The fluid is an exudate. Fluid culture still pending for now. Patient is to have a repeat chest x-ray today. Lateral views He did undergo bronchoscopy with BAL , cultures are negative Continued on vancomycin and Unasyn Continue bronchodilators, steroids We will continue to follow
--- NOTE | 2023-01-06 14:41 | XR ---
EXAMINATION TYPE: XR chest 2V DATE OF EXAM: 01/06/2023 COMPARISON: 01/05/2023 HISTORY: Shortness of breath TECHNIQUE: Frontal and lateral views of the chest are obtained. FINDINGS: Scattered senescent parenchymal changes noted. Hyperinflation compatible with COPD. Small right-sided pleural effusion appears unchanged. Fluid is seen within the right minor fissure. S tellate density right upper lobe. Left lung is clear. Heart size is stable. Mediastinal structures are stable and grossly unremarkable. No evidence for hilar prominence. Degenerative changes dorsal spine. IMPRESSION: 1. Essentially stable chest
--- NOTE | 2023-01-06 15:20 | P.PN ---
Subjective Progress Note Date: 01/06/23 Patient.52-year-old male came in with comments of shortness of breath does have history of COPD quit smoking about a week ago patient is a drug rehabitation program at this time. Chest x-ray was done which showed increasing infiltrate on the right side patient was on third-generation supposed for him for pneumonia as an outpatient. Patient does have wheezing which appears to be more of stridor. Patient does have oral thrush on exam. Patient is oxygen usually doesn't use any oxygen at home. Pro-calcitonin was ordered patient has leukocytosis with WBC count of 30,000 although patient is on steroids as an outpatient. Patient believes inhalational bleach she at the facility may have caused his COPD exacerbation. Patient is presently nicotine patches. Patient doesn't have any fever 01/01/2023 Patient seen and evaluated in follow-up today with pulmonary following. Patient continued on oral steroids now for COPD exacerbation along with breathing treatments. Repeat labs pending at this time and pro-calcitonin was 0.17. Patient is continued on vancomycin and Zosyn and will continue for now with attempting to obtain a sputum culture. Sputum culture was sent and pending at this time. Patient continues to have dyspnea and right side pain with inspiration will add incentive spirometer and also consult infectious disease and appreciate input and recommendations. Patient is currently afebrile with no reported chest pain or palpitations. Patient is tolerating diet and denies any nausea or vomiting. Patient reports is up and walking to the bathroom and becomes dyspneic and has to rest. Patient is continued on 2 L via nasal cannula. 01/02/2023 Patient is seen in follow-up today with pulmonary and infectious disease following. Patient continues to report right-sided lung pain and chest wall pain with difficulty breathing and taking deep breaths. Patient is maintained on antibiotics with infectious disease following and has ordered repeat sputum culture which was sent and pending. Infectious disease recommending awaiting cultures and continue on IV antibiotics before transitioning to oral to await cultures. Patient is also continued on nystatin for thrush which is improving. Patient is off oxygen and uses it as needed although maintaining oxygen saturation above 90% on room air. Patient with incentive spirometer at bedside instructed to continue using at least 10 times every hour while awake. Patient is being considered for discharge by pulmonary although still concerned with patient still being symptomatic and will obtain repeat CT chest for further evaluation. 01/03/2023 Patient is evaluated today ambulating in the hallways. Patient is status post bronchoscopy this AM with BAL and suctioning of mucous plug. 16.3 today additionally his sodium has normalized at 138. His CRP was elevated at 24. He remains on antibiotics in the form of IV vancomycin. IV cefepime has been added. Pulmonary and ID are currently following with further recommendations regarding empyema. 01/04/2023 Patient today states his breathing has improved he has been weaned to room air. Continues to report significant pain and discomfort to the right anterior ribcag e. Lungs sounds are diminished at the right base. His white count is 17.77 today. Antibiotics have been adjusted to IV unasyn. Sputum culture is negative. Pending bronch washings. He is scheduled to undergo right sided chest tube placement with IR tomorrow for the empyema. 01/05/2023 Patient seen and evaluated and follow-up currently nothing by mouth scheduled to undergo thoracentesis with pulmonary at bedside. Infectious disease following as well and is continued on IV Unasyn. Patient is status post bronchoscopy awaiting cultures from this as well. Sputum culture thus far has been negative. Patient is afebrile continue to report some shortness of breath and right side wall pain on the lower ribs. Patient has been up and walking and is currently maintaining oxygen saturation above 90% on room air. Patient is seen and evaluated in follow-up status post thoracentesis on the right and cultures are pending. Bronchoscopy washings are negative with infectious disease following maintained on antibiotics and white count is trending down. Chest x-ray ordered for today and pending at this time. Patient is afebrile with no reports of chest pain or worsening shortness of breath. Infectious disease following as well and will continue on IV antibiotics overnight recommend monitoring and we'll transition likely to oral antibiotics on discharge. Plan is for patient to return to [facility] per his request to complete alcohol rehab. Review of systems: Constitutional: No reports of fatigue, fever, or chills Cardiovascular: No reports of chest pain or palpitations Respiratory: reports of improvements in shortness of breath with cough and right-sided rib paiis improving as wellGI: No reports of nausea, vomiting, or diarrhea : No reports of dysuria or retention Neurovascular: No reports of weakness or numbness All medications have been reviewed PHYSICAL EXAMINATION: GENERAL: The patient is alert and oriented x3, Appears to be slowly clinically improving and on room air. Well developed, well nourished. HEENT: Pupils are round and equally reacting to light. EOMI. No scleral icterus. No conjunctival pallor. Normocephalic, atraumatic. No pharyngeal erythema. No thyromegaly. CARDIOVASCULAR: S1 and S2 present. No murmurs, rubs, or gallops. PULMONARY: Diminished breath sounds bilaterally otherwise Chest is clear to auscultation. ABDOMEN: Soft, nontender, nondistended, normoactive bowel sounds. No palpable organomegaly. MUSCULOSKELETAL: No joint swelling or deformity. EXTREMITIES: No cyanosis, clubbing, or pedal edema. NEUROLOGICAL: Gross neurological examination did not reveal any focal deficits. SKIN: No rashes. Assessment: -COPD with acute exacerbation -Acute hypoxic respiratory failure multifactorial secondary to pneumonia as well as COPD exacerbation -worsening pneumonia , community-acquired, repeat sputum cultures are negative status post bronchoscopy with BALAnd cultures are negative from bronchoscopy -Moderate-sized right pleural effusion with new atelectatic collapse of the right lower lobestatus post thoracentesis on the right with 250 mL's removed, exudative -Seizure disorder, continued on home medications -Alcohol abuse and nicotine abuse patient is presently at drug rehabitation program at [facility] with plans to return there on discharge -DVT prophylaxis: Lovenox -GI prophylaxis -Full code Plan: Pulmonary following and continued on DuoNeb treatments along with oral steroids and Patient currently on room air weaned off oxygen. ID following and patient continues on IV unasyn. Patient underwent right-sided thoracentesis and cultures along with cytology are pending Patientis status post bronchoscopy with culturenegative as well showing clinical improvement and will continue on IV antibiotics overnight and transitioned oral Augmentin per ID recommendations Encouraged increased activity as tolerated Encouraged incentive spirometer use at least 10 times every hour while awake Will follow-up on repeat labs in a.m. Plan is to return to [facility] when stable to complete his alcohol rehab Probable discharge in 24 hours The impression and plan of care has been dictated by Kimmie Marley, Nurse Practitioner as directed. Dr. Raymond MD I have performed a history and examination and MDM of this patient, discussed the same with the dictator, and agree with the dictator's assessment and plan as written ,documented as a scribe. Based on total visit time, I have performed more than 50% of the visit. Objective - Vital Signs Vital signs: Vital Signs Temp 98.5 F 01/06/23 13:41 Pulse 86 01/06/23 13:41 Resp 17 01/06/23 13:41 BP 112/71 01/06/23 13:41 Pulse Ox 93 L 01/06/23 13:41 FiO2 21 01/05/23 08:12 Intake & Output 01/05/23 01/06/23 01/06/23 18:59 06:59 18:59 Intake Total 100 Balance 100 Intake: Intake, IV Titration 100 Amount Ampicillin-Sulbactam 3 gm 100 In Sodium Chloride 0.9% 100 ml @ 200 mls/hr IVPB Q6HR [facility] Rx#:[id number] Other: Voiding Method Toilet # Voids 2 - Labs CBC & Chem 7: 01/06/23 05:20 01/06/23 05:20 Labs: Abnormal Lab Results - Last 24 Hours (Table) 01/06/23 01/06/23 Range/Units 05:20 05:20 WBC 16.45 H (4.50-10.00) X 10*3/uL RBC 3.04 L (4.40-5.60) X 10*6/uL Hgb 10.0 L (13.0-17.0) d/dL Hct 30.6 L (39.6-50.0) % MCV 100.7 H (80.0-97.0) FL MCH 32.9 H (27.0-32.0) pg Plt Count 817 H (140-440) X 10*3/uL MPV 8.5 L (9.5-12.2) FL Neutrophils # 12.54 H (1.80-7.70) X 10*3/uL Anion Gap 12.50 H (4.00-12.00) mmol/L Glucose 170 H (70-110) mg/dL Microbiology - Last 24 Hours (Table) 01/03/23 08:00 Gram Stain - Final Bronchoalviolar Lavage - Right Bronchial Washings Culture - Final 01/03/23 08:00 Acid Fast Bacilli Smear - Preliminary Bronchoalviolar Lavage - Right
[2023-01-06] MEDS: traZODone HCL 100 MG TAB PO SCH (20:40)
[2023-01-07] MEDS: AMPICILLIN-SULBACTAM 3 GM in SODIUM CHLORIDE 0.9% 100 ML IVPB SCH ×3 (00:10→13:14)
[2023-01-07] MEDS: levETIRAcetam 500 MG TAB PO SCH ×2 (05:20→15:15)
[2023-01-07] MEDS: ESCITALOPRAM 10 MG TAB PO SCH (05:20)
[2023-01-07] MEDS: NICOTINE 21MG/24HR PATCH TRANSDERM SCH (05:20)
[2023-01-07] MEDS: guaiFENesin-DM 100-10MG/5ML 10 ML CUP PO PRN (05:47)
[2023-01-07] MEDS: IPRATROPIUM-ALBUTEROL 3 ML NEB INHALATION SCH ×3 (08:20→15:04)
[2023-01-07] MEDS: SYMBICORT 160-4.5 MCG INHALER INHALATION SCH (08:20)
[2023-01-07 09:04] LABS: Amylase 81 U/L (23-121); Lipase 39 U/L (14-60)
[2023-01-07 09:09] LABS: BUN/Creat Ratio 16.83 Ratio (12.00-20.00); Blood Urea Nitrogen 10.1 mg/dL (9.0-27.0); Carbon Dioxide 26.2 mmol/L (21.6-31.8); Chloride 98 mmol/L (96-109); Glucose 83 mg/dL (70-110); Potassium 4.7 mmol/L (3.5-5.5); Sodium 138 mmol/L (135-145)
[2023-01-07] MEDS: ACETAMINOPHEN TAB 325 MG TAB PO SCH ×3 (09:42→17:28)
[2023-01-07] MEDS: busPIRone HCl 10 MG TAB PO SCH ×2 (09:43→15:15)
[2023-01-07] MEDS: predniSONE 10 MG TAB PO SCH (09:43)
[2023-01-07] MEDS: HEPARIN SODIUM,PORCINE 5,000 UNIT/ML 1 ML VIAL SQ SCH (09:43)
[2023-01-07] MEDS: THIAMINE 100 MG TAB PO SCH (09:43)
[2023-01-07] MEDS: SENNOSIDES 8.6 MG TAB PO SCH (09:43)
[2023-01-07] MEDS: NYSTATIN 100,000 UNIT/ML SUSP 500,000 UNIT/5 ML CUP PO SCH ×3 (09:45→17:28)
[2023-01-07 10:23] LABS: Basophils # (A) 0.02 X 10*3/uL (0.00-0.10); Basophils % (A) 0.1 %; Eosinophils # (A) 0.12 X 10*3/uL (0.04-0.35); Eosinophils % (A) 0.6 %; HCT 34.6 % (39.6-50.0); HGB 11.1 d/dL (13.0-17.0); Lymphocytes # (A) 3.05 X 10*3/uL (0.90-5.00); Lymphocytes % (A) 15.7 %; MCH 32.6 pg (27.0-32.0); MCHC 32.1 d/dL (32.0-37.0); MCV 101.8 FL (80.0-97.0); Mean Platelet Volume 8.4 FL (9.5-12.2); Monocytes # (A) 1.14 X 10*3/uL (0.20-1.00); Monocytes % (A) 5.9 %; NRBC Per 100 WBC 0 X 10*3/uL (0.00-0.01); Neutrophils # (A) 14.89 X 10*3/uL (1.80-7.70); Neutrophils % (A) 76.9 %; Platelet Count 881 X 10*3/uL (140-440); RDW 13.2 % (11.5-14.5); WBC 19.37 X 10*3/uL (4.50-10.00)
--- NOTE | 2023-01-07 14:59 | P.PN ---
Subjective Progress Note Date: 01/07/23 52-year-old male who was recently discharged from this hospital, with a COPD exacerbation. The patient was discharged, and went back to [place], because of his addiction. The patient states that apparently he smelled bleach at [place], and he became very short of breath. In addition, he complained of chest tightness, wheezing, coughing, and phlegm production. He was seen in the emergency department on December 31 at 3:00 in the morning. He is seen this morning, in the emergency department, room 30. He is on 3 L of oxygen. He's not receiving any IV fluids. His chest x-ray revealed a possible right lower lobe infiltrate. He is profoundly short of breath, which is why he came back in. White count 31.5, hemoglobin 13, hematocrit 39.6, and platelet count 900,000. Sodium 133, potassium 4.3, chlorides 99, CO2 28, BUN 15, creatinine 0.39. Studies for influenza, RSV, and coronavirus, are all negative. Chest x- ray shows worsening right lower lung airspace opacities/atelectasis, with a small effusion. Progress note dated 01/01/2023. The patient is seen today in room 155. He was seen in consultation yesterday, in the emergency department. He was admitted with a diagnosis of COPD exacerbation, and right lower lobe infiltrate. The patient's currently on 2 L of oxygen. His pro-calcitonin level was elevated 0.17. The patient had a chest x-ray ordered for tomorrow, January 02. He continues on Zosyn and vancomycin. White count is 25.6, hemoglobin 11.7, hematocrit 36.3, platelet count 798,000. Creatinine 0.43. Studies for influenza, Legionella, RSV, and coronavirus, are all negative. The patient is seen today 01/02/2023 in follow-up on the regular medical floor. He is up ambulating in his room. Awake and alert in no acute distress. Maintaining O2 saturations in the 90s on room air. He's been afebrile. Hemodynamically stable. Chest x-ray shows bilateral infiltrate and small right effusion. No pneumothorax. CT angiogram was suboptimal due to contrast bolus and breathing motion artifact. No definite pulmonary embolus. There is worsening now moderate-sized right pleural effusion, new atelectatic collapse of the right lower lobe. Also worsening consolidation and volume loss throughout the right middle lobe. Possible small pneumonic infiltrate anteromedial right midlung persist though minimally smaller. Persistent right hilar lymph node, suspect reactive measuring up to 2.4 cm. Sputum culture pending. Creatinine 0.53. Vancomycin trough 11.6. He is continued on DuoNeb inhalations, Symbicort, prednisone taper. He is continued on vancomycin and cefepime. NicoDerm patch in place. The patient is seen today 01/03/2023 in follow-up on the regular medical floor. He is awake and alert in no acute distress. Up ambulating in his room. Stable and on room air. He did undergo bronchoscopy with BAL and brushing of the right lung. Cytology, cultures and fluid analysis pending. We have requested interventional radiology to place a pigtail catheter into the right lower lung pleural effusion. Ultrasound revealed a moderate right pleural effusion with internal debris and septations. Patient culture pending. White count 16.7. He moglobin 10.9. MCV 102.1. Platelets 783. Sodium 138. Potassium 4.2. Bicarb 27. BUN 6. Creatinine 0.6. C-reactive protein 24.0. He remains on vancomycin and cefepime. Continue on Symbicort, DuoNeb inhalations, prednisone taper. NicoDerm patch is in place. The patient is seen today 01/04/2023 in follow-up on the regular medical floor. He is awake and alert in no acute distress. Up ambulating in his room. Up in the shower. No worsening shortness of breath, cough or congestion. Denies to maintain good O2 saturations in the 90s on room air. He's been afebrile. Hemodynamically stable. Sputum culture revealed no growth. Bronchial wash cultures and cytology are pending. Today's labs are pending. He remains on vancomycin and cefepime. Continue on bronchodilators and a prednisone taper. NicoDerm patch in place. Plan is to have interventional radiology place a pigtail catheter to the right chest. On today's evaluation of 01/05/2023, the patient was seen for a follow-up. I reviewed the x-ray I also reviewed the CAT scan of the chest. I performed a bedside thoracentesis on this patient and the total of 250 mL of fluid was aspirated from the right lung. The subsequent chest x-ray that was done following the procedure showed a small right-sided pleural effusion post thoracentesis. No this of any pneumothorax. There is some residual right mid and lower lobe airspace disease/consolidation. The patient is currently doing well. The patient remains on IV Unasyn. The patient is on prednisone burst taper. He is on room air oxygen. The white cell count at 17.6 with a hemoglobin of 10.8 and a platelet count of 832. Creatinine 0.5. Vancomycin level was 13.9. 01/06/2023, the patient is on room air oxygen. The patient underwent a thoracentesis yesterday and it in approximately 250 mL of fluid was aspirated from the right lung. The fluid was an exudate based on the protein criteria as the pleural fluid protein was more than 3.6. At same time, the LDH was elevated at 660. The fluid glucose was at 68. The white cell count was up to 39. Cultures are still pending for now. The repeat chest x-ray following the procedure shows improvement in the aeration of the right lung base. There was some residual right lower lobe airspace disease and a small right-sided pleural effusion. No evidence of any pneumothorax. Clinically, the patient is doing well, the white second of 60 with a hemoglobin of 10 and a platelet count of 217. BUN is at panel with a creatinine of 0.6 and a sodium level is at 139. On 01/07/2023, the patient is on room air oxygen. Ambulating. The pleural fluid cultures are negative. Pleural fluid cytology was negative for malignancy. This was an exudate. Repeat chest x-ray shows only a small right- sided pleural effusion. There is some residual consolidation of the right lung base. The white cell count is at 19 with a hemoglobin 11.1 and a platelet count of 881. BUN is at 10 with a creatinine of 0.6 and a sodium level is at 138. The patient does not look toxic at all. His emulating. No nausea or vomiting. No chest pain. Objective - Vital Signs Vital signs: Vital Signs Temp 98.6 F 01/07/23 06:45 Pulse 80 01/07/23 08:32 Resp 16 01/07/23 08:32 BP 132/87 01/07/23 06:45 Pulse Ox 95 01/07/23 08:21 FiO2 21 01/05/23 08:12 Intake & Output 01/06/23 01/07/23 01/07/23 18:59 06:59 18:59 Intake Total 2160 Balance 2160 Intake: Oral 2160 Other: Voiding Method Toilet # Voids 5 2 # Bowel Movements 1 - Exam GENERAL EXAM: Alert, pleasant 52-year-old male patient, on room air, comfortable in no apparent distress. HEAD: Normocephalic. EYES: Normal reaction of pupils, equal size. NOSE: Clear with pink turbinates. THROAT: No erythema or exudates. NECK: No masses, no JVD. CHEST: No chest wall deformity. LUNGS: Equal air entry with bilateral end expiratory wheeze, few scattered rhonchi more so on the right lung. CVS: S1 and S2 normal with no audible murmur, regular rhythm. ABDOMEN: No hepatosplenomegaly, normal bowel sounds, no guarding or rigidity. SPINE: No scoliosis or deformity SKIN: No rashes CENTRAL NERVOUS SYSTEM: No focal deficits, tone is normal in all 4 extremities. EXTREMITIES: There is no peripheral edema. No clubbing, no cyanosis. Peripheral pulses are intact. - Labs CBC & Chem 7: 01/07/23 05:05 01/07/23 05:05 Labs: Abnormal Lab Results - Last 24 Hours (Table) 01/07/23 01/07/23 Range/Units 05:05 05:05 WBC 19.37 H (4.50-10.00) X 10*3/uL RBC 3.40 L (4.40-5.60) X 10*6/uL Hgb 11.1 L (13.0-17.0) d/dL Hct 34.6 L (39.6-50.0) % MCV 101.8 H (80.0-97.0) FL MCH 32.6 H (27.0-32.0) pg Plt Count 881 H (140-440) X 10*3/uL MPV 8.4 L (9.5-12.2) FL Neutrophils # 14.89 H (1.80-7.70) X 10*3/uL Monocytes # 1.14 H (0.20-1.00) X 10*3/uL Anion Gap 13.80 H (4.00-12.00) mmol/L Microbiology - Last 24 Hours (Table) 01/05/23 12:01 Acid Fast Bacilli Smear - Preliminary Pleural Fluid 01/05/23 12:01 Gram Stain - Preliminary Pleural Fluid Body Fluid Culture - Preliminary 01/03/23 08:00 Gram Stain - Final Bronchoalviolar Lavage - Right Bronchial Washings Culture - Final Assessment and Plan Plan: Acute hypoxemic respiratory failure, secondary to COPD exacerbation, complicated by right-sided pneumonia. He did undergo bronchoscopy with BAL and brushings on the right lung 01/03/2023. Ultrasound of the right chest revealed moderate pleural effusion with internal debris and septations. I performed a thoracentesis on this patient and total of 250 mL of fluid was aspirated. No complications. Subsequent chest x-ray shows improvement with a small right- sided pleural effusion. The fluid is an exudate and the fluid cultures are still pending for now. The fluid also sent for cytology. The fluid is a exudate based on the LDH and protein criteria. This small residual right-sided pleural effusion. The patient is currently on room air oxygen. Repeat chest x- ray from today shows some small right-sided pleural effusion residual consolidation right lung base. Clinically however the patient is very much stable. Pleural fluid cytology is negative. Cultures are negative. Ongoing tobacco use with nicotine addiction. Chronic alcohol abuse. History of depression. Homelessness. Plan: The patient can be discharged back to the [place] completing course of Augmentin for a total of 10 days and he will need a follow-up chest x-ray following that and I'll leave that to seen in my office in follow-up regarding this pneumonia and parapneumonic effusion. Fluid cytology is negative for malignancy Patient is to have a repeat chest x-ray today and there is small right-sided pleural effusion residual consolidation He did undergo bronchoscopy with BAL , cultures are negative Continue bronchodilators, steroids We will continue to follow Patient is to be discharged back to the rehabilitation center for alcohol rehabilitation
[2023-01-07 18:18] VITALS: BP 125/77; PULSE 90; RESP 18; TEMP 97.5
--- NOTE | 2023-01-09 14:02 | P.DS ---
Providers Date of admission: 12/31/22 06:54 Expected date of discharge: 01/07/23 Attending physician: Juan Pablo Andrade Consults: 12/31/22 06:54 Consult Physician Routine Consulting Provider: Casa Martinez Consult Reason/Comments: respiratory failure Do you want consulting provider notified?: Yes 01/01/23 13:42 Consult Physician Urgent Consulting Provider: Shanti Delarosa Consult Reason/Comments: pneumonia Do you want consulting provider notified?: Yes Primary care physician: Stated None Hospital Course: Final diagnosis -COPD with acute exacerbation -Acute hypoxic respiratory failure multifactorial secondary to pneumonia as well as COPD exacerbation -worsening pneumonia , community-acquired, repeat sputum cultures are negative status post bronchoscopy with BALAnd cultures are negative from bronchoscopy -Moderate-sized right pleural effusion with new atelectatic collapse of the right lower lobestatus post thoracentesis on the right with 250 mL's removed, exudative -Seizure disorder -Alcohol abuse and nicotine abuse patient is presently at drug rehabitation program at [facility] -DVT prophylaxis -GI prophylaxis -Full code Discharge disposition Patient is being discharged in a stable condition with guarded prognosis to home. Patient was scheduled to return to [facility] although they are unwilling to accept him back as patient has had 2 hospitalizations or his respiratory issues. Patient will be going home and following up with mental health outpatient. Patient will follow-up with primary care provider in [place] where he is moving upon discharge. Patient is to continue with oral Augmentin and a prednisone taper and close outpatient follow-up with pulmonary as scheduled. Total time taken is greater than 35 minutes. Hospital course This is a 52-year-old male who was recently admitted with COPD acute exacerbation along with acute respiratory failure and community-acquired pneumonia. Patient evaluated by infectious disease along with pulmonary status post bronchoscopy as well as right thoracentesis for pleural effusion. Cultures have been negative and patient will be continued on Augmentin and close outpatient follow-up on discharge. Patient has improved and is currently on room air and has been cleared by consultations. Please refer to consultation notes for further HPI. Currently no reports of chest pain, shortness of breath, or palpitations. Patient is afebrile. No reports of nausea or vomiting and patient is tolerating diet. Patient was originally scheduled to return to [facility] to complete his rehab although they are unwilling to accept him as he has had 2 hospitalizations for pneumonia and recommending resolution of his current infection and reapplying for admission to alcohol rehab after medical clearance. Patient will be going home and has family for support and is planning on moving to [facility]. Patient to establish with primary care provider upon moving. Community resources were provided on discharge. Physical exam: Gen: This is a 52-year-old male who is awake, alert and oriented 3, well- developed, well-nourished HEENT: Head is atraumatic, normocephalic. Pupils equal, round. Sclerae is anicteric. NECK: Supple. No JVD. No lymphadenopathy. No thyromegaly. LUNGS: Clear to auscultation. No wheezes or rhonchi. No intercostal retractions. HEART: Regular rate and rhythm. No murmur. ABDOMEN: Soft. Bowel sounds are present. No masses. No tenderness. EXTREMITIES: No pedal edema. No calf tenderness. NEUROLOGICAL: Patient is awake, alert and oriented x3. Cranial nerves 2 through 12 are grossly intact. Please refer to medication reconciliation sheet for a list of medications. The impression and plan of care has been dictated by Nurse Xiomy Prac titioner as directed. Dr. Raymond MD I have performed a history and examination and MDM of this patient, discussed the same with the dictator, and agree with the dictator's assessment and plan as written ,documented as a scribe. Based on total visit time, I have performed more than 50% of the visit. Patient Condition at Discharge: Stable Plan - Discharge Summary Discharge Rx Participant: Yes New Discharge Prescriptions: New Amoxic-Pot Clav 875-125Mg [Augmentin 875-125] 1 tab PO Q12HR 10 Days #20 tab Budesonide-Formot 160-4.5 Mcg [Symbicort 160-4.5 Mcg Inhaler] 2 puff INHALATION BID 30 Days #1 each Albuterol Inhaler [Ventolin Hfa Inhaler] 2 puff INHALATION Q6H PRN 30 Days #1 each PRN Reason: Wheezing Nystatin 100,000 Unit/ml Susp [Mycostatin Oral Susp] 5 ml PO QID 5 Days #100 ml predniSONE 10 mg PO DIRECTED #30 tab Sennosides [Senokot] 8.6 mg PO DAILY 10 Days #10 tablet Continue Acetaminophen Tab [Tylenol] 650 mg PO QID traZODone HCL [Desyrel] 100 mg PO HS@2000 Nicotine 21Mg/24Hr Patch [Habitrol] 1 patch TRANSDERM DAILY@0600 Multivitamins, Thera [Multivitamin (formulary)] 1 tab PO DAILY@0600 Ibuprofen [Motrin] 600 mg PO TID@0600,1130,2100 Chlorpheniramine Maleate [Chlor-Trimeton] 4 mg PO Q4H PRN PRN Reason: RUNNY NOSE/ALLERGIES busPIRone HCl [Buspar] 10 mg PO TID 10 Days #30 tab Fluticasone/Umeclidin/Vilanter [Trelegy Ellipta 100-62.5-25] 1 puff INHALATION RT-DAILY@0600 #1 each Albuterol Sulfate [Ventolin HFA] 1 puff INHALATION RT-DAILY@0600 #1 each Calcium/Mag/Zinc/D3 1 tab PO TID Thera M Iron 9 mg PO DAILY@0600 guaiFENesin [guaiFENesin Oral Solution] 200 mg PO Q4H PRN PRN Reason: CHEST CONGESTION Thiamine [Vitamin B-1] 100 mg PO DAILY 30 Days #30 tab levETIRAcetam [Keppra] 1,000 mg PO BID@0600,1600 30 Days #60 tab Escitalopram [Lexapro] 10 mg PO DAILY@0600 10 Days #10 tab Albuterol Nebulized [Ventolin Nebulized] 2.5 mg INHALATION RT-Q4H PRN PRN Reason: Shortness Of Breath Discontinued methylPREDNISolone Dose Pack [Medrol Dose Pack] See Taper PO DIRECTED cefUROXime axetiL [Ceftin] 500 mg PO BID@0630,1630 Discharge Medication List Acetaminophen Tab [Tylenol] 650 mg PO QID 12/25/22 [History] Chlorpheniramine Maleate [Chlor-Trimeton] 4 mg PO Q4H PRN 12/25/22 [History] Ibuprofen [Motrin] 600 mg PO TID@0600,1130,209912/25/22 [History] Multivitamins, Thera [Multivitamin (formulary)] 1 tab PO DAILY@0600 12/25/22 [History] Nicotine 21Mg/24Hr Patch [Habitrol] 1 patch TRANSDERM DAILY@0600 12/25/22 [History] Thera M Iron 9 mg PO DAILY@0600 10/12/23 [History] guaiFENesin [guaiFENesin Oral Solution] 200 mg PO Q4H PRN 12/25/22 [History] traZODone HCL [Desyrel] 100 mg PO HS@2000 12/25/22 [History] Albuterol Sulfate [Ventolin HFA] 1 puff INHALATION RT-DAILY@0600 #1 each 12/29/22 [Rx] Escitalopram [Lexapro] 10 mg PO DAILY@0600 10 Days #10 tab 12/29/22 [Rx] Fluticasone/Umeclidin/Vilanter [Trelegy Ellipta 100-62.5-25] 1 puff INHALATION RT-DAILY@0600 #1 each 12/29/22 [Rx] Thiamine [Vitamin B-1] 100 mg PO DAILY 30 Days #30 tab 12/29/22 [Rx] busPIRone HCl [Buspar] 10 mg PO TID 10 Days #30 tab 12/29/22 [Rx] levETIRAcetam [Keppra] 1,000 mg PO BID@0600,1600 30 Days #60 tab 12/29/22 [Rx] Albuterol Nebulized [Ventolin Nebulized] 2.5 mg INHALATION RT-Q4H PRN 12/31/22 [History] Calcium/Mag/Zinc/D3 1 tab PO TID 12/31/22 [History] Albuterol Inhaler [Ventolin Hfa Inhaler] 2 puff INHALATION Q6H PRN 30 Days #1 each 01/07/23 [Rx] Amoxic-Pot Clav 875-125Mg [Augmentin 875-125] 1 tab PO Q12HR 10 Days #20 tab 01/07/23 [Rx] Budesonide-Formot 160-4.5 Mcg [Symbicort 160-4.5 Mcg Inhaler] 2 puff INHALATION BID 30 Days #1 each 01/07/23 [Rx] Nystatin 100,000 Unit/ml Susp [Mycostatin Oral Susp] 5 ml PO QID 5 Days #100 ml 01/07/23 [Rx] Sennosides [Senokot] 8.6 mg PO DAILY 10 Days #10 tablet 01/07/23 [Rx] predniSONE 10 mg PO DIRECTED #30 tab 10/25/23 [Rx] Follow up Appointment(s)/Referral(s): Amparo Tucker MD [STAFF PHYSICIAN] - 01/21/23 8:45 am None,Stated [Primary Care Provider] - 1-2 days Activity/Diet/Wound Care/Special Instructions: *Call staff at [facility] [phone] #4, #4 and they will pick patient up at discharge. Follow-up pulmonary outpatient Follow-up infectious disease outpatient Follow-up primary care provider on discharge Continue taking antibiotics until finished Continue prednisone taper Discharge Disposition: HOME SELF-CARE
== END 2023-01-07 18:02 | disposition home or self-care (01) | DRG 121 ==
LOC: EC 03:10 → 1SOBS 06:54 → 4SSUR 01-01 18:01
PROVIDERS: ADMIT Hospitalist; ATTEND Hospitalist
PROC: 0WCQ8ZZ Extirpation of Matter from Respiratory Tract, Via Natural or Artificial Opening Endoscopic (ICD-10-PCS; 2023-01-03)
PROC: 0B9D8ZX Drainage of Right Middle Lung Lobe, Via Natural or Artificial Opening Endoscopic, Diagnostic (ICD-10-PCS; principal; 2023-01-03 08:00)
PROC: 0W993ZZ Drainage of Right Pleural Cavity, Percutaneous Approach (ICD-10-PCS; 2023-01-05)
DX: J18.9 Pneumonia, unspecified organism (principal); J96.01 Acute respiratory failure with hypoxia; J44.0 Chronic obstructive pulmonary disease with (acute) lower respiratory infection; J44.1 Chronic obstructive pulmonary disease with (acute) exacerbation; Z20.822 Contact with and (suspected) exposure to COVID-19; Z99.81 Dependence on supplemental oxygen; G40.909 Epilepsy, unspecified, not intractable, without status epilepticus; F10.20 Alcohol dependence, uncomplicated; F17.210 Nicotine dependence, cigarettes, uncomplicated; B37.0 Candidal stomatitis; L40.9 Psoriasis, unspecified; Z79.899 Other long term (current) drug therapy; Z71.6 Tobacco abuse counseling
CPT/HCPCS: 31624; 36415; 71045; 71046; 71275; 76604; 80048; 80053; 80202; 82150; 82565; 82945; 83615; 83690; 83735; 84145; 84157; 85025; 86140; 87070; 87102; 87116; 87205; 87206; 87449; 87496; 87498; 87502; 87529; 87634; 87636; 87798; 88104; 88108; 88305; 89050; 93005; 94640; 94760; 96365; 96366; 99285